=== PATIENT | male | born 1935 | race Caucasian/White ===

== ENCOUNTER 2017-08-14 21:19 | Inpatient (IN) | payer MEDICARE ==
[2017-08-14 21:54] LABS: BASOPHILS % (AUTO) 0.4 %; EOSINOPHILS # (AUTO) 0.2 10^3/uL (0.0-0.7); EOSINOPHILS % (AUTO) 1.8 %; HGB - HEMOGLOBIN 13.4 g/dL (14.0-18.0); LYMPHOCYTES # (AUTO) 2.2 10^3/uL (1.5-3.5); LYMPHOCYTES % (AUTO) 25.2 %; MEAN CORPUSCULAR HEMOGLOBIN 31.1 pg (27.0-31.0); MEAN CORPUSCULAR HGB CONC 34.7 g/dL (32.0-36.0); MEAN CORPUSCULAR VOLUME 89.5 fL (80.0-94.0); MEAN PLATELET VOLUME 8.3 fL (7.4-11.4); MONOCYTES # (AUTO) 0.7 10^3/uL (0.0-1.0); NEUTROPHILS # (AUTO) 5.7 10^3/uL (1.5-6.6); NEUTROPHILS % (AUTO) 64.6 %; PLT - PLATELET COUNT 216 10^3/uL (130-450); RED CELL DISTRIBUTION WIDTH 15.3 % (12.0-15.0); WHITE BLOOD COUNT 8.8 x10^3/uL (4.8-10.8)
[2017-08-14] MEDS ORDERED: SODIUM CHLORIDE 0.9% 1,000 ML IV ONE (21:57)
[2017-08-14 22:06] LABS: ALBUMIN 4.5 g/dL (3.2-5.5); ALBUMIN/GLOBULIN RATIO 1.5 (1.0-2.2); BILIRUBIN,TOTAL 1.4 mg/dL (0.2-1.0); CALCIUM 9.4 mg/dL (8.5-10.3); TOTAL PROTEIN 7.5 g/dL (6.7-8.2)
[2017-08-14] MEDS ORDERED: IOPAMIDOL-300 100 ML VIAL ONE (22:13)
[2017-08-14] MEDS ORDERED: diltiaZEM INJ 5 MG/ML VIAL IVP STA (22:32)
[2017-08-14] MEDS ORDERED: IOPAMIDOL-300 100 ML VIAL IVP ONE (23:35)
[2017-08-14] MEDS ORDERED: MORPHINE 2 MG/ML CARPUJECT IVP STA (23:48)
--- NOTE | 2017-08-14 23:48 | CT Preliminary Report ---
Exam: CT ABDOMEN/PELVIS W/ IMPRESSION: 1. Perforated ulcer in the region of the gastroduodenal junction. Mild pneumoperitoneum and free flui d. No abscess seen. 2. Extensive colonic diverticulosis. 3. Mildly enlarged prostate. 4. Mildly enlarged spleen. 5. Mild cardiomegaly. RADIA The above findings were discussed with Joshua by Dr. Thierno Wagner at 23:46 hrs on 08/14/17. SITE ID: [id number]
--- NOTE | 2017-08-14 23:48 | ED Physician Documentation ---
PD HPI ABD PAIN - Stated complaint Stated Complaint: RT ABD PX - Chief complaint Chief Complaint: Abd Pain - History obtained from History obtained from: Patient - History of Present Illness Timing - onset: Today Timing - details: Gradual onset, Still present Quality: Cramping, Aching Location: RUQ, RLQ Associated symptoms: No: Fever, Nausea, Vomiting, Diarrhea, Constipation Similar symptoms before: Has not had sx before Recently seen: Not recently seen - Additional information Additional information: Patient is a 82 year old male with a history of A fib, not on medication who is presenting to the emergency department for abdominal pain. patient states that this evening when he was getting ready for bed he developed sharp right sided pain. Patient denies any nausea, vomiting or diarrhea. Review of Systems Constitutional: denies: Fever, Chills Eyes: denies: Decreased vision Ears: denies: Ear pain, Drainage/discharge Nose: denies: Congestion Throat: reports: Reviewed and negative Cardiac: denies: Chest pain / pressure, Palpitations Respiratory: denies: Cough, Wheezing GI: reports: Abdominal Pain. denies: Nausea, Vomiting : denies: Dysuria, Hematuria Skin: denies: Rash, Lesions Neurologic: denies: Generalized weakness, Focal weakness Immunocompromised: denies: Immunocompromised PD PAST MEDICAL HISTORY - Past Medical History Past Medical History: Yes Cardiovascular: Atrial fibrillation, Arrhythmia Respiratory: Other Endocrine/Autoimmune: None GI: None : Frequency HEENT: None Psych: None Musculoskeletal: None Derm: None - Past Surgical History HEENT: Cataracts - Present Medications Home Medications: Ambulatory Orders Medication Instructions Recorded Confirmed No Known Home Medications [No 10/06/14 10/06/14 Known Home Medications] - Allergies Allergies/Adverse Reactions: Allergies Allergy/AdvReac Type Severity Reaction Status Date / Time No Known Drug Allergies Allergy Verified 08/14/17 21:26 - Social History Does the pt smoke?: No Smoking Status: Never smoker Does the pt drink ETOH?: Yes Substance Use and Type: Marijuana - Immunizations Immunizations are current?: Yes - POLST Patient has POLST: No Results - Vitals Vitals: Vital Signs - 24 hr 08/14/17 08/14/17 08/14/17 21:20 22:48 22:58 Temperature 35.9 C L Heart Rate 109 H 148 H 111 H Respiratory 20 16 15 Rate Blood Pressure 148/93 H 145/101 H 117/55 L O2 Saturation 96 97 97 08/14/17 08/14/17 08/14/17 23:04 23:09 23:14 Temperature Heart Rate 108 H 112 H 108 H Respiratory 12 17 18 Rate Blood Pressure 104/60 111/68 109/68 O2 Saturation 97 08/14/17 08/15/17 08/15/17 23:38 00:20 00:27 Temperature Heart Rate 116 H 133 H 91 Respiratory 19 17 24 Rate Blood Pressure 123/78 134/114 H 103/43 L O2 Saturation 95 94 98 08/15/17 08/15/17 08/15/17 00:32 00:48 01:01 Temperature 37.2 C Heart Rate 104 H 99 112 H Respiratory 17 23 17 Rate Blood Pressure 116/55 L 113/78 116/83 H O2 Saturation 95 98 100 Oxygen O2 Source Room air - EKG (time done) 2153 Rate: Rate (enter#) (128) Rhythm: Atrial fibrillation [place]: Normal Intervals: Normal [place] QRS: Normal Ischemia: Normal ST segments Compare to prior EKG: Old EKG unavailable - Labs Labs: Laboratory Tests 08/14/17 08/14/17 08/14/17 21:45 21:45 22:11 WBC 8.8 RBC 4.30 L Hgb 13.4 L Hct 38.5 L MCV 89.5 MCH 31.1 H MCHC 34.7 RDW 15.3 H Plt Count 216 MPV 8.3 Neut # 5.7 Lymph # 2.2 [place] # 0.7 Eos # 0.2 Baso # 0.0 Absolute Nucleated RBC 0.01 Nucleated RBC % 0.1 Sodium 136 Potassium 4.2 Chloride 99 L Carbon Dioxide 26 Anion Gap 11.0 BUN 22 H Creatinine 1.0 Estimated GFR (MDRD) 71 L Glucose 152 H Lactic Acid Calcium 9.4 Total Bilirubin 1.4 H AST 20 ALT 19 Alkaline Phosphatase 66 Troponin I 0.05 Total Protein 7.5 Albumin 4.5 Globulin 3.0 Albumin/Globulin Ratio 1.5 Lipase 21 L 08/14/17 22:11 WBC RBC Hgb Hct MCV MCH MCHC RDW Plt Count MPV Neut # Lymph # [place] # Eos # Baso # Absolute Nucleated RBC Nucleated RBC % Sodium Potassium Chloride Carbon Dioxide Anion Gap BUN Creatinine Estimated GFR (MDRD) Glucose Lactic Acid 1.3 Calcium Total Bilirubin AST ALT Alkaline Phosphatase Troponin I Total Protein Albumin Globulin Albumin/Globulin Ratio Lipase - Rads (name of study) ct abdomen and pelvis Radiology: Final report received, Discussed with rads, See rad report ( perforated ulcer) PD MEDICAL DECISION MAKING - ED course Complexity details: reviewed old records, reviewed results, re-evaluated patient , considered differential, d/w patient, d/w lean process deployment consultant ED course: Patient was seen and examined at bedside. IV access was gained and labs were drawn. Patient was started on IV fluids. Patient was placed on a monitor and found to be in afib. ekg was performed and confirmed a fib. Cardizem 20mg was ordered. Imaging was ordered and patient originally refused. Patient eventually agreed to imaging and radiologist called. patient was found to have a perforated ulcer. Surgeon (dr. crain) was contacted and the case was discussed with her. She stated she would take the patient to the OR. Patient was treated with morpine for pain and additional dose of cardizem. Patient was admitted well appearing and in no acute distress. Departure - Departure Disposition: 66 [facility] DC/Xfer Clinical Impression: Perforated ulcer of intestine Condition: Stable
[2017-08-15] MEDS ORDERED: diltiaZEM INJ 5 MG/ML VIAL IVP STA (00:01)
--- NOTE | 2017-08-15 00:01 | CT Report ---
EXAM: CT ABDOMEN AND PELVIS EXAM DATE: 08/14/2017 11:38 PM. CLINICAL HISTORY: Right-sided abdominal pain. COMPARISONS: None. TECHNIQUE: Routine helical CT imaging was performed through the abdomen and pelvis. IV contrast: 100 mL Isovue 300. Enteric contrast: No . Reconstructions: Coronal and sagittal. In accordance with CT protocol optimization, one or more of the following dose reduction techniques w ere utilized for this exam: automated exposure control, adjustment of mA and/or KV based on patient s ize, or use of iterative reconstructive technique. FINDINGS: Lung Bases: Mild cardiomegaly. Liver: Unremarkable. No suspicious masses. Gallbladder/Bile Ducts: Unremarkable. Spleen: Mildly enlarged. Pancreas: Unremarkable. Adrenal Glands: Unremarkable. Kidneys: Ptotic malrotated left kidney. Small left renal cyst. No suspicious masses or hydronephrosis . Peritoneal Cavity/Bowel: Mild pneumoperitoneum and free fluid appears to be secondary to a perforated ulcer in the region of the gastroduodenal junction, best seen on axial images 38 through 40. Extensive colonic diverticulosis. No abscess. Pelvic Organs: Mildly enlarged prostate. The bladder appears within normal limits. Vasculature: No aneurysms or other significant abnormality. Bones: No significant abnormality. Other: None. IMPRESSION: 1. Perforated ulcer in the region of the gastroduodenal junction. Mild pneumoperitoneum and free flui d. No abscess seen. 2. Extensive colonic diverticulosis. 3. Mildly enlarged prostate. 4. Mildly enlarged spleen. 5. Mild cardiomegaly. RADIA The above findings were discussed with Joshua by Dr. Thierno Wagner at 23:46 hrs on 08/14/17. Referring Provider Line: [phone] SITE ID: [id number]
[2017-08-15] MEDS ORDERED: PIPERACILLIN/TAZOBACTAM 3.375 GM in SODIUM CHLORIDE 0.9% MINIBAG 100 ML IV STA (01:04)
[2017-08-15] MEDS ORDERED: MORPHINE 2 MG/ML CARPUJECT IVP PRN (01:09)
--- NOTE | 2017-08-15 01:19 | HISTORY & PHYSICAL EXAMINATION ---
Chief Complaint - Chief Complaint Chief Complaint: abdominal pain Abdominal Pain HPI - Admitted From Admitted from: ED - History of Present Illness HPI Comment/Other: This is an 82-year-old gentleman who presented to the emergency department this evening complaining of epigastric and right-sided abdominal pain.He states that he was feeling like his normal self until around 8 PM this evening when he started developing abdominal pain. The pain became worse and he eventually presented to the emergency department. Upon evaluation in the emergency department he was noted to be tachycardic and in atrial fibrillation. His heart rate was up to 170 and diltiazem was administered with slowing of his heart rate down to 100-110, however the patient remained in A. fib. Additionally the patient underwent lab workup and a CT scan of the abdomen. His white blood cell count was noted to be normal as well as his lactic acid. His CT scan demonstrated free intraperitoneal air with associated free fluid in the epigastric region concerning for a perforated ulcer in the gastroduodenal region. He is also noted to have diverticulosis without any evidence of inflammation. Surgical consultation was obtained. Upon my evaluation of the patient he has resting in bed in mild to moderate distress. He currently states his pain is about a 6 out of 10. He denies any history of peptic ulcer disease or GERD. He does not take any medications for reflux. He does state that he has had a toothache for the past several days and has been taking ibuprofen. His bowel habits have been normal and he has denied any constipation or diarrhea. The patient states that he was diagnosed with atrial fibrillation approximately 5 or 6 years ago but has not taking any medications for the atrial fibrillation. He is not on any anticoagulation. He denies any history of heart attacks or strokes. PMH/PSH - Past Medical History Cardiovascular: positive: Atrial fibrillation, Arrhythmia Respiratory: positive: Other Endocrine/Autoimmune: positive: None GI: positive: None : positive: Frequency HEENT: positive: None Psych: positive: None Musculoskeletal: positive: None Derm: positive: None MRSA Hx?: No - Past Surgical History HEENT: positive: Cataracts Other past surgical history: None Social & Family Hx - Social History Does the pt smoke?: No Smoking Status: Never smoker Does the pt drink ETOH?: Yes Substance Use and Type: Marijuana - POLST Patient has POLST: No Meds/Allgy - Home Medications Home Medications: Ambulatory Orders Medication Instructions Recorded Confirmed No Known Home Medications [No 04/01/15 04/01/15 Known Home Medications] - Allergies Allergies/Adverse Reactions: Allergies Allergy/AdvReac Type Severity Reaction Status Date / Time No Known Drug Allergies Allergy Verified 08/14/17 21:26 Review of Systems - Constitutional Constitutional: denies: Fever - Cardiovascular Cariovascular: denies: Chest pain - Respiratory Respiratory: denies: SOB at rest - Gastrointestinal Gastrointestinal: reports: Abdominal pain Exam - Vital Signs Reviewed Vital Signs: Yes Vital Signs: Vital Signs x48h Temp Pulse Resp BP Pulse Ox 08/15/17 01:01 112 H 17 116/83 H 100 08/15/17 00:48 37.2 C 99 23 113/78 98 08/15/17 00:32 104 H 17 116/55 L 95 08/15/17 00:27 91 24 103/43 L 98 08/15/17 00:20 133 H 17 134/114 H 94 08/14/17 23:38 116 H 19 123/78 95 08/14/17 23:14 108 H 18 109/68 08/14/17 23:09 112 H 17 111/68 08/14/17 23:04 108 H 12 104/60 97 08/14/17 22:58 111 H 15 117/55 L 97 08/14/17 22:48 148 H 16 145/101 H 97 08/14/17 21:20 35.9 C L 109 H 20 148/93 H 96 - Physical Exam General Appearance: positive: Mild distress Respiratory: positive: Breath sounds nml Cardiovascular: positive: Irregularly irregular Abdomen: positive: Other (Abdomen is distended with pain to light palpation specifically in the epigastric and right upper quadrant regions. He does have rebound tenderness and peritoneal findings.) Extremities: positive: No pedal edema Neurologic/Psychiatric: positive: Oriented x3 Results - Lab Results Fish Bones: 08/14/17 21:45 08/14/17 21:45 Other Lab Results: Lab Results x24hrs 08/14/17 08/14/17 08/14/17 Range/Units 22:11 22:11 21:45 WBC (4.8-10.8) x10^3/uL RBC (4.70-6.10) 10^6/uL Hgb (14.0-18.0) g/dL Hct (42.0-52.0) % MCV (80.0-94.0) fL MCH (27.0-31.0) pg MCHC (32.0-36.0) g/dL RDW (12.0-15.0) % Plt Count (130-450) 10^3/uL MPV (7.4-11.4) fL Neut # (1.5-6.6) 10^3/uL Lymph # (1.5-3.5) 10^3/uL [place] # (0.0-1.0) 10^3/uL Eos # (0.0-0.7) 10^3/uL Baso # (0.0-0.1) 10^3/uL Absolute Nucleated RBC x10^3/uL Nucleated RBC % /100WBC Sodium 136 (135-145) mmol/L Potassium 4.2 (3.5-5.0) mmol/L Chloride 99 L (101-111) mmol/L Carbon Dioxide 26 (21-32) mmol/L Anion Gap 11.0 (6-13) BUN 22 H (6-20) mg/dL Creatinine 1.0 (0.6-1.2) mg/dL Estimated GFR (MDRD) 71 L (>89) Glucose 152 H (70-100) mg/dL Lactic Acid 1.3 (0.5-2.2) mmol/L Calcium 9.4 (8.5-10.3) mg/dL Total Bilirubin 1.4 H (0.2-1.0) mg/dL AST 20 (10-42) IU/L ALT 19 (10-60) IU/L Alkaline Phosphatase 66 (42-121) IU/L Troponin I 0.05 (<0.49) ng/mL Total Protein 7.5 (6.7-8.2) g/dL Albumin 4.5 (3.2-5.5) g/dL Globulin 3.0 (2.1-4.2) g/dL Albumin/Globulin Ratio 1.5 (1.0-2.2) Lipase 21 L (22-51) U/L 08/14/17 Range/Units 21:45 WBC 8.8 (4.8-10.8) x10^3/uL RBC 4.30 L (4.70-6.10) 10^6/uL Hgb 13.4 L (14.0-18.0) g/dL Hct 38.5 L (42.0-52.0) % MCV 89.5 (80.0-94.0) fL MCH 31.1 H (27.0-31.0) pg MCHC 34.7 (32.0-36.0) g/dL RDW 15.3 H (12.0-15.0) % Plt Count 216 (130-450) 10^3/uL MPV 8.3 (7.4-11.4) fL Neut # 5.7 (1.5-6.6) 10^3/uL Lymph # 2.2 (1.5-3.5) 10^3/uL [place] # 0.7 (0.0-1.0) 10^3/uL Eos # 0.2 (0.0-0.7) 10^3/uL Baso # 0.0 (0.0-0.1) 10^3/uL Absolute Nucleated RBC 0.01 x10^3/uL Nucleated RBC % 0.1 /100WBC Sodium (135-145) mmol/L Potassium (3.5-5.0) mmol/L Chloride (101-111) mmol/L Carbon Dioxide (21-32) mmol/L Anion Gap (6-13) BUN (6-20) mg/dL Creatinine (0.6-1.2) mg/dL Estimated GFR (MDRD) (>89) Glucose (70-100) mg/dL Lactic Acid (0.5-2.2) mmol/L Calcium (8.5-10.3) mg/dL Total Bilirubin (0.2-1.0) mg/dL AST (10-42) IU/L ALT (10-60) IU/L Alkaline Phosphatase (42-121) IU/L Troponin I (<0.49) ng/mL Total Protein (6.7-8.2) g/dL Albumin (3.2-5.5) g/dL Globulin (2.1-4.2) g/dL Albumin/Globulin Ratio (1.0-2.2) Lipase (22-51) U/L ARRA - Anticipated LOS Anticipated Stay Length: 2 or more midnights - AMI - Statin at Admit Aspirin Prescribed on Admit: No Impression/Plan - Problem List Problem List: Perforated viscus The most likely etiology of the patient's perforated viscus is a perforated gastric or duodenal ulceration. Due to the patient's peritoneal findings I am recommending operative exploration. The procedure was explained the patient in detail including potential risks involved including but not limited to bleeding , infection, stroke, heart attack, end organ failure and . I did indicate that this is considered to be a high risk procedure. I did indicate that occasionally nonoperative management can be undertaken, however, due to his peritoneal findings I do not recommend this approach. I indicated that I will initially perform an exploratory laparoscopy with a possible laparotomy and repair of the perforation. I also indicated that postoperatively he will most likely have an NG tube, Herrera catheter and abdominal drain in place. I also indicated that we will be in the hospital for at least 2-5 days postoperatively , or longer if complications arise. He displays understanding of all of the above. He has spoken to both of his sons who are aware that he will be going to surgery but who are not currently present at the hospital. Atrial fibrillation The patient's heart rate will be managed as per anesthesia perioperatively.Due to the emergent nature of his diagnosis no further intervention will be undertaken prior to surgery.
[2017-08-15] MEDS ORDERED: SODIUM CHLORIDE 0.9% 400 ML IV ONE (01:52)
[2017-08-15] MEDS ORDERED: ONDANSETRON 4 MG/2 ML VIAL IVP ONE (02:00)
[2017-08-15] MEDS ORDERED: MIDAZOLAM 2 MG/2 ML VIAL IVP ONE (02:00)
[2017-08-15] MEDS ORDERED: ACETAMINOPHEN 1,000 MG/100 ML 100 ML IV ONE (02:00)
[2017-08-15] MEDS ORDERED: GLYCOPYRROLATE 1 MG/5 ML VIAL IVP ONE (02:00)
[2017-08-15] MEDS ORDERED: ROCURONIUM 50 MG/5 ML VIAL IVP ONE (02:00)
[2017-08-15] MEDS ORDERED: PROPOFOL 200 MG/20 ML VIAL IVP ONE (02:00)
[2017-08-15] MEDS ORDERED: LIDOCAINE-MPF 2% 5 ML VIAL IM ONE (02:00)
[2017-08-15] MEDS ORDERED: LACTATED RINGERS 1,000 ML IV SCH (02:00)
[2017-08-15] MEDS ORDERED: fentaNYL 100 MCG/2 ML VIAL IVP ONE (02:00)
[2017-08-15] MEDS ORDERED: METOPROLOL 5 MG/5 ML VIAL IVP ONE (02:00)
[2017-08-15] MEDS ORDERED: NEOSTIGMINE 1 MG/1 ML 10 ML MDV IVP ONE (02:00)
[2017-08-15] MEDS ORDERED: SUCCINYLCHOLINE 200 MG/10 ML VIAL IVP ONE (02:00)
[2017-08-15] MEDS ORDERED: BUPIVACAINE 0.25%-EPI 1:200000 PF 10 ML VIAL SUBQ ONE ×2 (02:19)
[2017-08-15] MEDS ORDERED: LACTATED RINGERS 1,000 ML IV ONE (02:35)
[2017-08-15] MEDS ORDERED: METOCLOPRAMIDE 10 MG/2 ML VIAL IVP PRN (03:56)
[2017-08-15] MEDS ORDERED: HYDROmorphone 1 MG/ML SYRINGE ONE (04:40)
[2017-08-15] MEDS ORDERED: KETOROLAC 30 MG/ML VIAL ONE (05:08)
[2017-08-15] MEDS: ACETAMINOPHEN 1,000 MG/100 ML 100 ML IV SCH ×3 (06:01→17:51)
[2017-08-15] MEDS: ENOXAPARIN 40 MG/0.4 ML SYRINGE SUBQ SCH (06:02)
[2017-08-15 06:13] LABS: BASOPHILS % (AUTO) 0.2 %; EOSINOPHILS % (AUTO) 0.1 %; LYMPHOCYTES # (AUTO) 0.4 10^3/uL (1.5-3.5); LYMPHOCYTES % (AUTO) 2.5 %; MEAN CORPUSCULAR HGB CONC 34.4 g/dL (32.0-36.0); MEAN CORPUSCULAR VOLUME 90.1 fL (80.0-94.0); MEAN PLATELET VOLUME 8.7 fL (7.4-11.4); MONOCYTES % (AUTO) 5.6 %; NEUTROPHILS # (AUTO) 16.2 10^3/uL (1.5-6.6); NEUTROPHILS % (AUTO) 91.6 %; PLT - PLATELET COUNT 208 10^3/uL (130-450); RED BLOOD COUNT 3.88 10^6/uL (4.70-6.10); WHITE BLOOD COUNT 17.7 x10^3/uL (4.8-10.8)
[2017-08-15 06:21] LABS: CALCIUM 7.8 mg/dL (8.5-10.3)
[2017-08-15] MEDS: PIPERACILLIN/TAZOBACTAM 3.375 GM in SODIUM CHLORIDE 0.9% MINIBAG 100 ML IV SCH ×3 (06:40→18:25)
[2017-08-15] MEDS: PANTOPRAZOLE 40 MG VIAL IVP SCH ×2 (06:44→16:09)
[2017-08-15] MEDS: SODIUM CHLORIDE FLUSH 0.9% 10 ML SYRINGE IVP SCH ×3 (06:48→21:22)
--- NOTE | 2017-08-15 08:01 | POST OP PROGRESS NOTE ---
Subjective - General Admit Date: 08/15/17 Procedure Date: 08/15/17 Post Op Days: 0 Procedure Performed: Laparoscopic exploration and kely patch repair - Review of Systems Wound/Incisions: positive: Dressing dry and intact Drain Type: SELMA - Other Other Information/Narrative: Procedure: Laparoscopic exploration and Kely patch repair of perforated duodenal ulcer Surgeon: Dr. Sibley Anesthesiologist: Maryann Mathis Preoperative diagnosis: Perforated viscus postoperative diagnosis: Perforated duodenal ulceration Indication for procedure: This is an 82-year-old gentleman who presented to the emergency department last night around 11 PM for progressive epigastric and right-sided abdominal pain. He states that the pain began around [address] scan findings are suggestive of a perforated duodenal ulceration with free intraperitoneal air. The patient was noted to have peritoneal signs. For both reasons he has been taken to the operating room for laparoscopic exploration, possible laparotomy and repair of perforated viscus. Findings: After obtaining informed consent from the patient he was brought into the operating room and positioned on the operating table in the supine position taking noted pressure points.The patient was intubated by anesthesia. An NG tube and Herrera catheter were inserted. The patient had received 3.375 mg of Zosyn within the prior hour. He was then prepped and draped in the usual sterile fashion. SCD boots were applied. A timeout was then taken according to protocol. A 1 cm supraumbilical incision was created and deepened down to the umbilical stalk which was grasped and elevated. The Veress needle was inserted at this location and the abdominal cavity insufflated. A 5 mm incision was created and the supraumbilical region to the left of the midline and using the Optiview trocar the abdominal cavity was entered. The varies needle was removed and replaced with a 12 mm port. An additional 5 mm port was placed in the epigastric region to the left of the umbilicus. The patient was then positioned in reverse Trendelenburg and the abdominal cavity inspected. Bilious fluid was noted in the hepatic fossa. This was suctioned with the suction assistant director of residence life. Inflammation was noted at the first portion of the duodenum. The omentum was peeled back and the liver retracted exposing a less than 5 mm defect in the anterior duodenal wall at the first portion of the duodenum. Gastric contents were seen leaking from this defect. An additional 5 mm port was inserted on the right lateral abdominal wall in order to retract the gallbladder and liver out of the field to perform a Kely patch repair. A tongue of omentum was then brought for repair. 3-0 Vicryl sutures were then utilized to suture on the anterior duodenal wall on either side of the ulceration and the omental flap was into take place. 2 interrupted 3-0 Vicryl sutures were utilized to perform the repair.. The omentum was also tacked to the pylorus with a single interrupted 3-0 Vicryl sutureto ensure no slippage. The abdominal cavity was then inspected for additional gastric contacts in all were suctioned out of the abdominal cavity. A 10 flat SELMA drain was then inserted into the umbilical port and brought out through the right lateral abdominal port. This was positioned below the liver and gallbladder sitting just above the Kely patch repair. He was tied in place with a 3-0 nylon. Hemostasis was noted to be achieved. The abdominal cavity was allowed to desufflate and all ports were removed. The umbilical port site was then closed with a [id number] 0 Vicryl suture. The skin incisions were closed with 4- 0 Monocryl. Steri-Strips and sterile dressings were applied. The patient was subsequently taken extubated to the recovery room in stable condition. Estimated blood loss 10 cc crystaloid: 800 cc normal saline urine output 175 cc complications none
[2017-08-15 09:20] LABS: BILIRUBIN,URINE NEGATIVE (NEGATIVE); GLUCOSE, URINE (UA) NEGATIVE (NEGATIVE); KETONES,URINE (UA) 15 mg/dL (NEGATIVE); LEUKOCYTE ESTERASE, URINE NEGATIVE (NEGATIVE); NITRITE,URINE NEGATIVE (NEGATIVE); OCCULT BLOOD,URINE MODERATE (NEGATIVE); PROTEIN,URINE NEGATIVE (NEGATIVE); UROBILINOGEN,URINE 1 (NORMAL) E.U./dL (NORMAL)
[2017-08-15 09:23] LABS: CLARITY,URINE CLEAR (CLEAR)
[2017-08-15 09:34] LABS: BACTERIA,URINE Rare /HPF (None Seen); SQUAMOUS EPITHELIAL CELL,UR NONE SEEN (<= Few)
[2017-08-15] MEDS: SODIUM CHLORIDE 0.9% 1,000 ML IV SCH ×2 (10:12→21:26)
[2017-08-15] MEDS: METOPROLOL 5 MG/5 ML VIAL IVP SCH ×2 (11:37→17:51)
--- NOTE | 2017-08-15 12:14 | OPERATIVE REPORT ---
Operative Report - General Admit Date: 08/15/17 - Other Other Information/Narrative: see procedure report
[2017-08-15] MEDS: PHENOL THROAT SPRAY 177 ML MM PRN (16:46)
[2017-08-16] MEDS: METOPROLOL 5 MG/5 ML VIAL IVP SCH ×4 (00:37→19:11)
[2017-08-16] MEDS: ACETAMINOPHEN 1,000 MG/100 ML 100 ML IV SCH ×4 (00:43→18:43)
[2017-08-16] MEDS: PIPERACILLIN/TAZOBACTAM 3.375 GM in SODIUM CHLORIDE 0.9% MINIBAG 100 ML IV SCH ×4 (01:37→19:40)
[2017-08-16] MEDS ORDERED: ENOXAPARIN 40 MG/0.4 ML SYRINGE SUBQ SCH (04:00)
[2017-08-16] MEDS: PHENOL THROAT SPRAY 177 ML MM PRN (05:50)
[2017-08-16 05:58] LABS: BASOPHILS % (AUTO) 0.3 %; EOSINOPHILS # (AUTO) 0.1 10^3/uL (0.0-0.7); HGB - HEMOGLOBIN 11.1 g/dL (14.0-18.0); LYMPHOCYTES # (AUTO) 1.1 10^3/uL (1.5-3.5); LYMPHOCYTES % (AUTO) 11.2 %; MEAN CORPUSCULAR HEMOGLOBIN 32.1 pg (27.0-31.0); MEAN CORPUSCULAR HGB CONC 35.2 g/dL (32.0-36.0); MEAN PLATELET VOLUME 8.6 fL (7.4-11.4); MONOCYTES # (AUTO) 0.7 10^3/uL (0.0-1.0); MONOCYTES % (AUTO) 7.1 %; NEUTROPHILS # (AUTO) 7.7 10^3/uL (1.5-6.6); NEUTROPHILS % (AUTO) 80.4 %; PLT - PLATELET COUNT 193 10^3/uL (130-450); RED BLOOD COUNT 3.47 10^6/uL (4.70-6.10); RED CELL DISTRIBUTION WIDTH 15.3 % (12.0-15.0); WHITE BLOOD COUNT 9.6 x10^3/uL (4.8-10.8)
[2017-08-16 06:05] LABS: CALCIUM 7.5 mg/dL (8.5-10.3); CREATININE 1.1 mg/dL (0.6-1.2)
[2017-08-16] MEDS: SODIUM CHLORIDE FLUSH 0.9% 10 ML SYRINGE IVP SCH ×3 (06:05→19:47)
[2017-08-16] MEDS: SODIUM CHLORIDE FLUSH 0.9% 10 ML SYRINGE IVP PRN (06:06)
[2017-08-16] MEDS: PANTOPRAZOLE 40 MG VIAL IVP SCH ×2 (06:06→18:43)
[2017-08-16] MEDS: ENOXAPARIN 40 MG/0.4 ML SYRINGE SUBQ SCH (08:35)
[2017-08-16] MEDS ORDERED: ONDANSETRON 4 MG/2 ML VIAL IVP PRN (08:40)
[2017-08-16] MEDS: D5.45NS W/20 MEQ KCL 1,000 ML IV SCH ×2 (08:52→21:17)
--- NOTE | 2017-08-16 09:24 | PROVIDER PROGRESS NOTE ---
Subjective - General Admit Date: 08/15/17 Procedure Date: 08/15/17 Post Op Days: 1 Procedure Performed: Laparoscopic exploration and kely patch repair - Review of Systems Wound/Incisions: positive: Dressing dry and intact Drain Type: SELMA Drain Output Description: 100 serous General: positive: Fatigue, Other (didn't sleep well last pm) Pulmonary: negative: Shortness of breath Cardiovascular: positive: No symptoms. negative: Chest pain, Palpitations Genitourinary: positive: Other (minimalo flatus. No emesis, no nausea, no bloating) Psychiatric: positive: No symptoms. negative: Confusion Objective - Patient Data Reviewed Vital Signs: Yes Vital Signs: Vital Signs x48h Temp Pulse Resp BP BP Pulse Ox 08/16/17 08:15 37.0 C 114 H 18 90/69 93 08/16/17 06:45 111 H 100/49 L 08/16/17 06:30 109 H 92/54 L 08/16/17 06:20 131 H 98/57 L 08/16/17 06:15 103 H 93/56 L 08/16/17 06:10 103 H 102/77 08/16/17 06:00 94/58 L 08/16/17 05:50 37.6 C H 124 H 16 94/58 L 96 Weight: Weight 08/14/17 08/15/17 08/16/17 23:59 23:59 23:59 Weight (kg) 83.5 kg Intake & Output: Intake and Output Totals x24h 08/14/17 08/15/17 08/16/17 23:59 23:59 23:59 Intake Total 4567.122 3101.000 Output Total 835 655 Balance 943.333 575.000 - Lab Results Lab Results: 08/16/17 05:20 08/16/17 05:20 Other Lab Results: Lab Results x24hrs 08/16/17 08/16/17 08/15/17 Range/Units 05:20 05:20 05:30 WBC 9.6 (4.8-10.8) x10^3/uL RBC 3.47 L (4.70-6.10) 10^6/uL Hgb 11.1 L (14.0-18.0) g/dL Hct 31.6 L (42.0-52.0) % MCV 91.0 (80.0-94.0) fL MCH 32.1 H (27.0-31.0) pg MCHC 35.2 (32.0-36.0) g/dL RDW 15.3 H (12.0-15.0) % Plt Count 193 (130-450) 10^3/uL MPV 8.6 (7.4-11.4) fL Neut # 7.7 H (1.5-6.6) 10^3/uL Lymph # 1.1 L (1.5-3.5) 10^3/uL [place]ides # 0.7 (0.0-1.0) 10^3/uL Eos # 0.1 (0.0-0.7) 10^3/uL Baso # 0.0 (0.0-0.1) 10^3/uL Absolute Nucleated RBC 0.00 x10^3/uL Nucleated RBC % 0.0 /100WBC Sodium 138 (135-145) mmol/L Potassium 3.6 (3.5-5.0) mmol/L Chloride 108 (101-111) mmol/L Carbon Dioxide 21 (21-32) mmol/L Anion Gap 9.0 (6-13) BUN 15 (6-20) mg/dL Creatinine 1.1 (0.6-1.2) mg/dL Estimated GFR (MDRD) 64 L (>89) Glucose 109 H (70-100) mg/dL Calcium 7.5 L (8.5-10.3) mg/dL Urine Color YELLOW Urine Clarity CLEAR (CLEAR) Urine pH 6.0 (5.0-7.5) PH Ur Specific Annabella 1.020 (1.002-1.030) Urine Protein NEGATIVE (NEGATIVE) mg/dL Urine Glucose (UA) NEGATIVE (NEGATIVE) mg/dL Urine Ketones 15 H (NEGATIVE) mg/dL Urine Occult Blood MODERATE H (NEGATIVE) Urine Nitrite NEGATIVE (NEGATIVE) Urine Bilirubin NEGATIVE (NEGATIVE) Urine Urobilinogen 1 (NORMAL) (NORMAL) E.U./dL Ur Leukocyte Esterase NEGATIVE (NEGATIVE) Urine RBC 6-10 H (0-5) /HPF Urine WBC 0-3 (0-3) /HPF Ur Squamous Epith Cells NONE SEEN (<= Few) Urine Bacteria Rare (None Seen) /HPF Ur Microscopic Review INDICATED Urine Culture Comments NOT INDICATED - Current Medications Current Medications: Current Medications Generic Name Dose Route Start Last Admin Trade Name Freq PRN Reason Stop Dose Admin Enoxaparin Sodium 40 mg 08/15/17 06:00 08/16/17 08:35 Lovenox SUBQ 40 mg DAILY GAYLE Administration Piperacillin Sod/Tazobactam 100 mls @ 200 mls/hr 08/15/17 07:00 08/16/17 06: 54 Sod 3.375 gm/ Sodium Chloride IV Infused Q6H GAYLE Infusion Acetaminophen 100 mls @ 400 mls/hr 08/15/17 05:00 08/16/17 05:53 Ofirmev IV Infused Q6HR GAYLE Infusion Potassium Chloride/Dextrose/Sod Cl 1,000 mls @ 83.333 mls/hr 08/16/17 09:00 08/16/17 08:52 D5.45ns W/20 Meq Kcl IV 83.333 mls/hr .Q12H GAYLE Administration Metoprolol Tartrate 5 mg 08/15/17 12:00 08/16/17 06:00 Lopressor Inj IVP 5 mg Q6HR GAYLE Administration Pantoprazole Sodium 40 mg 08/15/17 07:00 08/16/17 06:06 Protonix IVP 40 mg BIDAC GAYLE Administration Phenol/Menthol 2 sprays 08/15/17 16:07 08/16/17 05:50 Chloraseptic MM 2 sprays Q2HR PRN Administration Throat Pain Sodium Chloride 10 ml 08/15/17 01:09 08/16/17 06:06 Normal Saline Flush 0.9% IVP 10 ml PRN PRN Administration NEEDED PER PROVIDER ORDERS Sodium Chloride 10 ml 08/15/17 06:00 08/16/17 06:05 Normal Saline Flush 0.9% IVP 10 ml Q8HR GAYLE Administration - Physical Exam Wound/Incisions: positive: Dressing dry and intact, No drainage. negative: Erythema General Appearance: positive: No acute distress Respiratory: positive: No respiratory distress, Breath sounds nml Cardiovascular: positive: Irregularly irregular Abdomen: positive: Other (soft, non-distended, no tender to light palpation. SELMA in place) Extremities: positive: No pedal edema Neurologic/Psychiatric: positive: Oriented x3 Comments/Other: pain well controlled. afebrile, normalization of WBC today. UOP adequate Impression/Plan - Problem List Problem List: s/p laparoscopic exploration with Kely patch repair of perforated DU POD 1 - DC schmid - encourage ambulation - Continue NGT to intermittent suction. Con't NPO and IV fluids. Will plan for 3 days of these measures to allow for healing, followed by a leak test prior to removing NGT. Spoke with Dr. Koenig in Radiology - this can not be performed over weekend, will have to wait until Saturday. If negative NGT will be removed and patient started on orals. - WBC normalized, patient remains afebrile. Plan to continue IV antibiotics for 5 days for intraperitoneal contamination. - SELMA to remain in place until after leak test performed and oral diet started - Con't BID IV PPI. Patient counseled that he will be discharged on oral PPI Qday, which he will need to take for the rest of his life to prevent ulcer recurrence. - Continue IV metoprolol until NGT removed and oral medications can be started. Will need to be discharged on oral rate control medication and will need to have close interval follow up with PCP to manage his uncontrolled A.fib. I also recommended that he discuss with his PCP the risks and benefits of anticoagulation therapy at his age. No surgical contraindication to start full anticoagulation. He should at the very least start Aspirin 81 mg Daily once oral diet is started. - Con't Lovenox for DVT prophylaxis until discharge - Maintenance IV fluids to continue until diet started. - IV acetaminophen and morphine for pain control. - Informed patient that Dr. Guerrero will be taking over care as I will be out of town until next Saturday. Patient will follow up with me 2 weeks after discharge.
[2017-08-17] MEDS: METOPROLOL 5 MG/5 ML VIAL IVP SCH ×5 (00:17→23:43)
[2017-08-17] MEDS: ACETAMINOPHEN 1,000 MG/100 ML 100 ML IV SCH ×5 (00:17→23:43)
[2017-08-17] MEDS: PIPERACILLIN/TAZOBACTAM 3.375 GM in SODIUM CHLORIDE 0.9% MINIBAG 100 ML IV SCH ×4 (00:44→19:03)
[2017-08-17] MEDS: SODIUM CHLORIDE FLUSH 0.9% 10 ML SYRINGE IVP SCH ×3 (05:49→21:19)
[2017-08-17 06:26] LABS: CALCIUM 7.8 mg/dL (8.5-10.3); CREATININE 0.9 mg/dL (0.6-1.2)
[2017-08-17] MEDS: PANTOPRAZOLE 40 MG VIAL IVP SCH ×2 (06:42→16:42)
[2017-08-17] MEDS: ENOXAPARIN 40 MG/0.4 ML SYRINGE SUBQ SCH (09:11)
[2017-08-17] MEDS: SODIUM CHLORIDE FLUSH 0.9% 10 ML SYRINGE IVP PRN ×2 (12:00→12:52)
--- NOTE | 2017-08-17 12:34 | PROVIDER PROGRESS NOTE ---
Subjective - General Admit Date: 08/15/17 Procedure Date: 08/15/17 Post Op Days: 2 Procedure Performed: Laparoscopic exploration and osman patch repair - Review of Systems Wound/Incisions: positive: Drainage (Serous.). negative: Erythema Drain Type: SELMA Drain Output Description: 130 serous General: positive: No symptoms (Feeling much better - states he has no pain.) Pulmonary: negative: Shortness of breath Cardiovascular: positive: No symptoms. negative: Chest pain, Palpitations Gastrointestinal: positive: Flatus (Small amount.), Other (No bowel movement.) Musculoskeletal: positive: No symptoms Skin: positive: No symptoms Psychiatric: positive: No symptoms. negative: Confusion Objective - Patient Data Reviewed Vital Signs: Yes Vital Signs: Vital Signs x48h Temp Pulse Resp BP BP Pulse Ox 08/17/17 08:03 37.2 C 120 H 18 128/76 94 08/17/17 06:13 92 130/75 08/17/17 06:07 109 H 08/17/17 06:01 123 H 109/64 08/17/17 05:59 118/82 H 08/17/17 05:49 142/85 H Weight: Weight 08/15/17 08/16/17 08/17/17 23:59 23:59 23:59 Weight (kg) 83.5 kg Intake & Output: Intake and Output Totals x24h 08/15/17 08/16/17 08/17/17 23:59 23:59 23:59 Intake Total 7768.261 2836.792 420 Output Total 835 1673 985 Balance 010.887 5337.792 -565 - Lab Results Lab Results: 08/16/17 05:20 08/17/17 05:45 Other Lab Results: Lab Results x24hrs 08/17/17 Range/Units 05:45 Sodium 138 (135-145) mmol/L Potassium 3.6 (3.5-5.0) mmol/L Chloride 106 (101-111) mmol/L Carbon Dioxide 22 (21-32) mmol/L Anion Gap 10.0 (6-13) BUN 8 (6-20) mg/dL Creatinine 0.9 (0.6-1.2) mg/dL Estimated GFR (MDRD) 81 L (>89) Glucose 149 H (70-100) mg/dL Calcium 7.8 L (8.5-10.3) mg/dL - Current Medications Current Medications: Current Medications Generic Name Dose Route Start Last Admin Trade Name Freq PRN Reason Stop Dose Admin Enoxaparin Sodium 40 mg 08/15/17 06:00 08/17/17 09:11 Lovenox SUBQ 40 mg DAILY GAYLE Administration Piperacillin Sod/Tazobactam 100 mls @ 200 mls/hr 08/15/17 07:00 08/17/17 11: 38 Sod 3.375 gm/ Sodium Chloride IV Infused Q6H GAYLE Infusion Acetaminophen 100 mls @ 400 mls/hr 08/15/17 05:00 08/17/17 11:52 Ofirmev IV 400 mls/hr Q6HR GAYLE Administration Potassium Chloride/Dextrose/Sod Cl 1,000 mls @ 83.333 mls/hr 08/16/17 09:00 08/16/17 21:17 D5.45ns W/20 Meq Kcl IV 83.3 mls/hr .Q12H GAYLE Administration Metoprolol Tartrate 5 mg 08/15/17 12:00 08/17/17 05:49 Lopressor Inj IVP 5 mg Q6HR GAYLE Administration Pantoprazole Sodium 40 mg 08/15/17 07:00 08/17/17 06:42 Protonix IVP 40 mg BIDAC GAYLE Administration Phenol/Menthol 2 sprays 08/15/17 16:07 08/16/17 05:50 Chloraseptic MM 2 sprays Q2HR PRN Administration Throat Pain Sodium Chloride 10 ml 08/15/17 01:09 08/17/17 12:00 Normal Saline Flush 0.9% IVP 10 ml PRN PRN Administration NEEDED PER PROVIDER ORDERS Sodium Chloride 10 ml 08/15/17 06:00 08/17/17 05:49 Normal Saline Flush 0.9% IVP Not Given Q8HR GAYLE - Physical Exam Wound/Incisions: positive: Healing well, Drainage (Slight serous on dressing. Dressing removed.) General Appearance: positive: No acute distress Eyes Bilateral: positive: No lid inflammation, Conjunctivae nml, No scleral icterus Neck: positive: Trachea midline Respiratory: positive: Chest non-tender, No respiratory distress, Breath sounds nml Cardiovascular: positive: Irregularly irregular (Tachy to 100's-110's.) Abdomen: positive: Nml bowel sounds (Transmitted NG sounds as well.), Tenderness (Minimal incisional.) Skin: positive: Color nml Neurologic/Psychiatric: positive: Oriented x3 Impression/Plan - Problem List Problem List: D2 s/p laparoscopic exploration with Osman patch repair of perforated duodenal ulcer ) FEN Continue NG tube decompression, NPO and IVF to allow for Osman patch to heal and await leak test on Saturday as it cannot be done this weekend. Leak test MUST be done prior to discontinuing NG tube and starting oral intake. 2) ID No indication of infection. The tachycardia is not unexpected but mildly worrisome. SELMA drain must stay in place until after the leak test. Between the NG and the SELMA they are on either side of a potential leak - controlling it. 3) Ulcer Prevention and treatment with BID PPI. Considering patient's age and co-morbidities lifelong treatment is indicated. Patient will be discharged on oral daily PPI. Discussion with patient indicated that he had taken 5-6 days of Ibuprofen for a toothache prior to admission. 4) Afib Will defer to Ignition Expert's recommendation (will call on consult - spoke with Dr. Bills and Fausto Coats) but agree with Metoprolol for control of rate now and determination of what oral medication patient should be discharged on (anticoagulation versus none). There is no surgical contraindication to anticoagulation. Daily aspirin when taking po? 5) Pain IV acetaminophen and morphine. 6) DVT prophylaxis Continue Lovenox. Ambulate as much as possible.
--- NOTE | 2017-08-17 12:43 | CONSULTATION NOTE ---
Referring Provider Name of Referring Provider:: Dr. Guerrero Consult Date: 08/17/17 ([facility]) Chief Complaint - Chief Complaint Chief Complaint: tachycardia History of Present Illness - Admitted From Admitted From:: ED - History Obtained From Records Reviewed: yes History obtained from: chart review Exam Limitations: none, patient [place] - History of Present Illness HPI Comment/Other: Damion Singer is a well-appearing 82-year old white male with a past medical history of paroxysmal atrial fibrillation, cataract surgery, and marijuana dependence. The patient presented to the ED with a chief complaint of epigastric and right-sided abdominal pain. He states that he was feeling like his normal self until around 8 PM this evening when he started developing abdominal pain. During the admission evaluation in the ED, he was noted to be tachycardic and in atrial fibrillation. His heart rate was up to 170 and diltiazem was given which improved his rates to 100-110, however the patient remained in atrial fibrillation. Lab workup and a CT scan of the abdomen was completed and revealed; a normal WBC count, normal lactic acid. An abdominal CT scan demonstrated free intraperitoneal air with associated free fluid in the epigastric region concerning for a perforated ulcer in the gastroduodenal region. He is also noted to have diverticulosis without any evidence of inflammation. Surgical consult with Dr. Sibley was made who noted the patient to have recent NSAID use for a toothache, denied constipation or diarrhea. Plans for surgery are underway and the patient was admitted inpatient. The post-operative coarse has been smooth and uneventful, but due to concerns of persistent atrial fibrillation, a hospitalist consult was made for further management or uncontrolled atrial fibrillation. The patient states that he was diagnosed with atrial fibrillation about 6 years ago but has not been taking any medications for the atrial fibrillation. He is not on any anticoagulation. He denies any history of heart attacks or strokes. He admits to a "full cardiac work up 6 years ago at [facility]". Records have been requested. History - Past Medical History Cardiovascular: reports: Hypertension, Atrial fibrillation, Arrhythmia Respiratory: reports: None Neuro: reports: None Endocrine/Autoimmune: reports: None GI: reports: None : reports: Frequency HEENT: reports: Chronic hearing loss Psych: reports: Anxiety Musculoskeletal: reports: None Derm: reports: None MRSA Hx?: No - Past Surgical History General: reports: Bowel surgery HEENT: reports: Cataracts Other past surgical history: None - Family & Social History Family History: Mother: , Father: Living arrangement: At home Living Situation: Alone - Substance History Use: Uses substance without health or social issues: NONE Abuse: Recurrent use of substance despite neg consequences: NONE Dependence: Experiences withdrawal or developed tolerances: Cannabis Dependence Issues: Anxiety Disorder Tobacco Details: Other - POLST Patient has POLST: No POLST Status: Full Code Meds/Allgy - Home Medications Home Medications: Ambulatory Orders Medication Instructions Recorded Confirmed No Known Home Medications [No 10/06/14 08/15/17 Known Home Medications] - Allergies Allergies/Adverse Reactions: Allergies Allergy/AdvReac Type Severity Reaction Status Date / Time No Known Drug Allergies Allergy Verified 08/14/17 21:26 Review of Systems - Constitutional Constitutional: denies: Fever, Chills - Eyes Eyes: reports: Corrective lenses. denies: Pain, Irritation, Spots in vision - Ears, Nose & Throat Ears, Nose & Throat: reports: Hearing loss, Hearing aids. denies: Ear pain, Bleeding gums, Dental decay - Cardiovascular Cariovascular: reports: Irregular heart rate, Decr. exercise tolerance - Respiratory Respiratory: denies: Cough, Sputum production, Wheezing, Hemoptysis - Gastrointestinal Gastrointestinal: reports: Poor appetite - Genitourinary Genitourinary: denies: Dysuria - Musculoskeletal Musculoskeletal: denies: Muscle pain, Back pain - Integumentary Integumentary: denies: Rash, Pruritis - Neurological Neurological: reports: General weakness, Pre-existing deficit. denies: Headache , Seizures - Psychiatric Psychiatric: denies: Depression - Endocrine Endocrine: denies: Polyuria, Polydypsia - Hematologic/Lymphatic Hematologic/Lymphatic: denies: Anemia, Bruising - All Other Systems All Other Systems: reports: Reviewed and negative Exam - Vital Signs Reviewed Vital Signs: Yes Vital Signs: Vital Signs x48h Temp Pulse Resp BP BP Pulse Ox 08/17/17 08:03 37.2 C 120 H 18 128/76 94 08/17/17 06:13 92 130/75 08/17/17 06:07 109 H 08/17/17 06:01 123 H 109/64 08/17/17 05:59 118/82 H 08/17/17 05:49 142/85 H - Physical Exam General Appearance: positive: No acute distress, Alert Eyes Bilateral: positive: Normal inspection, PERRL ENT: positive: ENT inspection nml, Pharynx nml, Dry mucous membranes Neck: positive: Nml inspection, Thyroid nml, No JVD, Stiff neck Respiratory: positive: Chest non-tender, No respiratory distress, Other ( diminished, bilaterally.) Cardiovascular: positive: No gallop, Irregularly irregular, Tachycardia Peripheral Pulses: positive: 2+ Abdomen: positive: No organomegaly, Tenderness, Abnml bowel sounds, Other ( rounded, SELMA drain x1 RLQ) Back: positive: Nml inspection Skin: positive: No rash, Warm, Dry Extremities: positive: Non-tender, Full ROM, Nml appearance, Pedal edema Neurologic/Psychiatric: positive: Oriented x3, CN's nml (2-12), Motor nml, Sensation nml, Depressed mood/affect Reflexes: Bicep (R): 2+, Bicep (L): 2+ Conclusion/Plan - Diagnosis Diagnosis: Atrial fibrillation - Plan Plan: Patient has a known history of atrial fibrillation for at least the past 6 years per patient during exam. Plan: Due to NPO status, patient will be continued on metoprolol IV every 6 hours scheduled, and adding IV digoxin daily. Will continue this until PO medications are tolerated. Patient requested to see me again, on second visit patient states that he is feeling very anxious as he has purposely forgotten about his a-fib diagnosis for the past 6 years. He was formally worked up at [facility], placed on medications, but soon put them all in a box to forget about it. Plan: Lorazepam IV 0.5 every 2 hours for anxiety related to tachycardia and current state of health. - Lab Results Lab results reviewed: Yes Fish Bones: 08/16/17 05:20 08/17/17 05:45 - Diagnostic Imaging Results Diagnostic Imaging Results: positive: Prelim report reviewed, Final report reviewed - EKG Results EKG Interpreted Independently: Yes EKG Comparison: Unchanged from prior EKG
[2017-08-17] MEDS: D5.45NS W/20 MEQ KCL 1,000 ML IV SCH (12:50)
[2017-08-17] MEDS: DIGOXIN 500 MCG/2 ML AMP IVP SCH (16:42)
[2017-08-17] MEDS ORDERED: LORazepam 2 MG/ML VIAL IVP PRN (17:20)
[2017-08-18] MEDS: PIPERACILLIN/TAZOBACTAM 3.375 GM in SODIUM CHLORIDE 0.9% MINIBAG 100 ML IV SCH ×4 (00:14→19:43)
[2017-08-18] MEDS: D5.45NS W/20 MEQ KCL 1,000 ML IV SCH ×3 (01:54→16:18)
[2017-08-18 05:11] LABS: CALCIUM 7.9 mg/dL (8.5-10.3); CREATININE 0.9 mg/dL (0.6-1.2)
[2017-08-18] MEDS: METOPROLOL 5 MG/5 ML VIAL IVP SCH ×4 (06:19→21:05)
[2017-08-18] MEDS: SODIUM CHLORIDE FLUSH 0.9% 10 ML SYRINGE IVP SCH ×3 (06:21→16:27)
[2017-08-18] MEDS: ACETAMINOPHEN 1,000 MG/100 ML 100 ML IV SCH ×3 (06:21→18:47)
[2017-08-18] MEDS: PANTOPRAZOLE 40 MG VIAL IVP SCH ×2 (06:47→16:27)
--- NOTE | 2017-08-18 09:27 | PROVIDER PROGRESS NOTE ---
Subjective - Prog Note Date Prog Note Date: 08/18/17 Prog Note Time: 09:27 - Subjective Pt reports feeling: No change Subjective: Damion offers no complaints and denies chest pain, shortness of breath, N/V or a new cough. Current Medications - Current Medications Current Medications: Active Medications Digoxin (Lanoxin Inj) 250 mcg IVP DAILY [facility] Last Admin: 08/18/17 09:54 Dose: 250 mcg Digoxin (Lanoxin Inj) 250 mcg IVP DAILY [facility] Digoxin (Lanoxin Inj) 250 mcg IVP DAILY [facility] Enoxaparin Sodium (Lovenox) 40 mg SUBQ DAILY [facility] Last Admin: 08/18/17 09:54 Dose: 40 mg Piperacillin Sod/Tazobactam (Sod 3.375 gm/ Sodium Chloride) 100 mls @ 200 mls/ hr IV Q6H [facility] Last Infusion: 08/18/17 15:01 Dose: Infused Acetaminophen (Ofirmev) 100 mls @ 400 mls/hr IV Q6HR [facility] Last Infusion: 08/18/17 13:56 Dose: Infused Potassium Chloride/Dextrose/Sod Cl (D5.45ns W/20 Meq Kcl) 1,000 mls @ 83.333 mls/hr IV .Q12H [facility] Last Infusion: 08/18/17 16:21 Dose: 0 mls/hr Potassium Chloride 40 meq/ (Sodium Chloride) 500 mls @ 125 mls/hr IV ONCE ONE Stop: 08/18/17 18:05 Last Admin: 08/18/17 16:20 Dose: 125 mls/hr Lorazepam (Ativan Inj (Vial)) 0.5 mg IVP Q2H PRN PRN Reason: Anxiety Last Admin: 08/17/17 17:57 Dose: 0.5 mg Metoprolol Tartrate (Lopressor Inj) 5 mg IVP Q4HR [facility] Morphine Sulfate (Morphine (Carpuject)) 2 mg IVP Q2HR PRN PRN Reason: Pain 8 to 10 Ondansetron HCl (Zofran Inj) 4 mg IVP Q6HR PRN PRN Reason: Nausea / Vomiting Pantoprazole Sodium (Protonix) 40 mg IVP BIDAC [facility] Last Admin: 08/18/17 16:27 Dose: 40 mg Phenol/Menthol (Chloraseptic) 2 sprays MM Q2HR PRN PRN Reason: Throat Pain Last Admin: 08/16/17 05:50 Dose: 2 sprays Sodium Chloride (Normal Saline Flush 0.9%) 10 ml IVP PRN PRN PRN Reason: NEEDED PER PROVIDER ORDERS Last Admin: 08/18/17 12:08 Dose: 20 ml Sodium Chloride (Normal Saline Flush 0.9%) 10 ml IVP Q8HR GAYLE Last Admin: 08/18/17 16:27 Dose: 10 ml No Known Home Medications [No Known Home Medications] 10/06/14 Objective - Vital Signs/Intake & Output Reviewed Vital Signs: Yes Vital Signs: Vital Signs x48h Temp Pulse Resp BP BP Pulse Ox 08/18/17 08:01 36.9 C 64 18 138/78 H 96 08/18/17 06:19 128/95 H 08/18/17 05:05 37.1 C 107 H 18 134/72 H 95 Intake & Output: Intake & Output 08/15/17 08/16/17 08/17/17 08/18/17 23:59 23:59 23:59 23:59 Intake Total 8480.033 4592.792 2291.49 868.51 Output Total 835 1673 2010 830 Balance 926.880 2179.792 281.49 38.51 - Objective General Appearance: positive: No acute distress, Alert, Anxious Eyes Bilateral: positive: Normal inspection ENT: positive: ENT inspection nml, Pharynx nml, Dry mucous membranes Neck: positive: Nml inspection, Thyroid nml Respiratory: positive: Chest non-tender, No respiratory distress, Breath sounds nml Cardiovascular: positive: No gallop, Irregularly irregular, Tachycardia, Systolic murmur, Decreased pulse(s) Peripheral Pulses: 2+ Radial (R), 2+ Radial (L) Abdomen: positive: Tenderness, Guarding, Abnml bowel sounds Back: positive: Nml inspection Skin: positive: No rash, Warm, Dry Extremities: positive: Non-tender, Full ROM, Nml appearance, No pedal edema, Joint swelling Neurologic/Psychiatric: positive: Oriented x3, CN's nml (2-12), Motor nml, Sensation nml, Depressed mood/affect Reflexes: Bicep (R): 3+, Bicep (L): 3+ - Lab Results Fish Bones: 08/18/17 13:53 08/18/17 04:40 Other Labs: Lab Results x24hrs 08/18/17 Range/Units 04:40 Sodium 140 (135-145) mmol/L Potassium 3.7 (3.5-5.0) mmol/L Chloride 110 (101-111) mmol/L Carbon Dioxide 22 (21-32) mmol/L Anion Gap 8.0 (6-13) BUN 5 L (6-20) mg/dL Creatinine 0.9 (0.6-1.2) mg/dL Estimated GFR (MDRD) 81 L (>89) Glucose 142 H (70-100) mg/dL Calcium 7.9 L (8.5-10.3) mg/dL - Diagnostic Imaging Diagnostic Imaging Results: positive: Final report reviewed Assessment/Plan - Problem List (1) Paroxysmal atrial fibrillation Impression: Patient has remained minimally rate controlled using Metoprolol 5mg IV every 6 hours that was increased today to 5mg IV every 4 hours. In addition today, patient received his second IV digoxin dose of 250mcg. Patient has been somewhat hypertensive, without symptoms. Spoke to Dr. Guerrero today in regards to patient remaining tachy in the 120's. Orders for additional labs to rule out an underlying cause, which was negative, no WBC elevation. EKG completed. * Adding 2 more IV doses of digoxin for today, and plans to check a blood dig level in AM before first IV dig dose. Plan: Continue to monitor labs, vital signs and make adjustments to medications as needed. Plan to start oral agents when cleared for oral intake. (2) Perforated ulcer of intestine Impression: Patient is without post-op complications, has remained afebrile, no pain to speak of when asked. Plan: Continue care as per surgery Chiara Sibley MD or Dr. Mani Guerrero MD.
[2017-08-18] MEDS: DIGOXIN 500 MCG/2 ML AMP IVP SCH ×2 (09:54→18:32)
[2017-08-18] MEDS: ENOXAPARIN 40 MG/0.4 ML SYRINGE SUBQ SCH (09:54)
[2017-08-18] MEDS: SODIUM CHLORIDE FLUSH 0.9% 10 ML SYRINGE IVP PRN ×2 (09:55→12:08)
[2017-08-18 14:00] LABS: BASOPHILS % (AUTO) 0.6 %; EOSINOPHILS # (AUTO) 0.2 10^3/uL (0.0-0.7); EOSINOPHILS % (AUTO) 3.1 %; HGB - HEMOGLOBIN 12.3 g/dL (14.0-18.0); LYMPHOCYTES # (AUTO) 0.9 10^3/uL (1.5-3.5); LYMPHOCYTES % (AUTO) 13.8 %; MEAN CORPUSCULAR HEMOGLOBIN 31.9 pg (27.0-31.0); MEAN CORPUSCULAR HGB CONC 35.6 g/dL (32.0-36.0); MEAN CORPUSCULAR VOLUME 89.6 fL (80.0-94.0); MEAN PLATELET VOLUME 7.7 fL (7.4-11.4); MONOCYTES # (AUTO) 0.5 10^3/uL (0.0-1.0); MONOCYTES % (AUTO) 8.2 %; NEUTROPHILS % (AUTO) 74.3 %; PLT - PLATELET COUNT 274 10^3/uL (130-450); RED BLOOD COUNT 3.86 10^6/uL (4.70-6.10); RED CELL DISTRIBUTION WIDTH 15.2 % (12.0-15.0); WHITE BLOOD COUNT 6.7 x10^3/uL (4.8-10.8)
[2017-08-18] MEDS ORDERED: POTASSIUM CHLORIDE INJ 40 MEQ in SODIUM CHLORIDE 0.9% 480 ML IV ONE (14:06)
[2017-08-18 14:18] LABS: CRP - C-REACTIVE PROTEIN 6.7 mg/dL (0-1.0)
--- NOTE | 2017-08-18 14:33 | PROVIDER PROGRESS NOTE ---
Subjective - General Admit Date: 08/15/17 Procedure Date: 08/15/17 Post Op Days: 3 Procedure Performed: Laparoscopic exploration and kely patch repair - Review of Systems Wound/Incisions: positive: Healing well, Drainage (Slight serous on dressing. Dressing removed.) Drain Type: SELMA Drain Output Description: 110 serous and NOT bilious General: positive: No symptoms (Feeling much better - states he has no pain.) HEENT: positive: No symptoms Pulmonary: positive: No symptoms Cardiovascular: positive: No symptoms Gastrointestinal: positive: Flatus (Passing a large amount.), Other (No bowel movement.) Genitourinary: positive: Other (minimalo flatus. No emesis, no nausea, no bloating) Musculoskeletal: positive: No symptoms Skin: positive: No symptoms Psychiatric: positive: No symptoms. negative: Confusion All Other Systems: positive: Reviewed and negative Objective - Patient Data Reviewed Vital Signs: Yes Vital Signs: Vital Signs x48h Temp Pulse Pulse Resp BP BP Pulse Ox 08/18/17 12:35 86 143/102 H 08/18/17 12:21 108 H 150/87 H 08/18/17 12:17 118 H 148/81 H 08/18/17 12:12 93 143/88 H 08/18/17 12:07 125 H 144/94 H 08/18/17 12:01 141/100 H 08/18/17 11:43 36.8 C 59 L 20 149/77 H 95 08/18/17 09:54 100 08/18/17 08:01 36.9 C 64 18 138/78 H 96 Intake & Output: Intake and Output Totals x24h 08/16/17 08/17/17 08/18/17 23:59 23:59 23:59 Intake Total 2750.792 2291.49 1938.51 Output Total 1673 2010 1685 Balance 1077.792 281.49 253.51 - Lab Results Lab Results: 08/18/17 13:53 08/18/17 04:40 Other Lab Results: Lab Results x24hrs 08/18/17 08/18/17 08/18/17 Range/Units 13:53 13:53 13:53 WBC (4.8-10.8) x10^3/uL RBC (4.70-6.10) 10^6/uL Hgb (14.0-18.0) g/dL Hct (42.0-52.0) % MCV (80.0-94.0) fL MCH (27.0-31.0) pg MCHC (32.0-36.0) g/dL RDW (12.0-15.0) % Plt Count (130-450) 10^3/uL MPV (7.4-11.4) fL Neut # (1.5-6.6) 10^3/uL Lymph # (1.5-3.5) 10^3/uL [place] # (0.0-1.0) 10^3/uL Eos # (0.0-0.7) 10^3/uL Baso # (0.0-0.1) 10^3/uL Absolute Nucleated RBC x10^3/uL Nucleated RBC % /100WBC ESR 28 H (0-20) mm/Hr Sodium (135-145) mmol/L Potassium (3.5-5.0) mmol/L Chloride (101-111) mmol/L Carbon Dioxide (21-32) mmol/L Anion Gap (6-13) BUN (6-20) mg/dL Creatinine (0.6-1.2) mg/dL Estimated GFR (MDRD) (>89) Glucose (70-100) mg/dL Lactic Acid 1.1 (0.5-2.2) mmol/L Calcium (8.5-10.3) mg/dL Magnesium (1.7-2.8) mg/dL Total Creatine Kinase 75 (22-269) IU/L Troponin I (<0.49) ng/mL C-Reactive Protein 6.7 H (0-1.0) mg/dL TSH (0.34-5.60) uIU/mL 08/18/17 08/18/17 08/18/17 Range/Units 13:53 04:40 04:40 WBC 6.7 (4.8-10.8) x10^3/uL RBC 3.86 L (4.70-6.10) 10^6/uL Hgb 12.3 L (14.0-18.0) g/dL Hct 34.6 L (42.0-52.0) % MCV 89.6 (80.0-94.0) fL MCH 31.9 H (27.0-31.0) pg MCHC 35.6 (32.0-36.0) g/dL RDW 15.2 H (12.0-15.0) % Plt Count 274 (130-450) 10^3/uL MPV 7.7 (7.4-11.4) fL Neut # 5.0 (1.5-6.6) 10^3/uL Lymph # 0.9 L (1.5-3.5) 10^3/uL [place] # 0.5 (0.0-1.0) 10^3/uL Eos # 0.2 (0.0-0.7) 10^3/uL Baso # 0.0 (0.0-0.1) 10^3/uL Absolute Nucleated RBC 0.00 x10^3/uL Nucleated RBC % 0.0 /100WBC ESR (0-20) mm/Hr Sodium (135-145) mmol/L Potassium (3.5-5.0) mmol/L Chloride (101-111) mmol/L Carbon Dioxide (21-32) mmol/L Anion Gap (6-13) BUN (6-20) mg/dL Creatinine (0.6-1.2) mg/dL Estimated GFR (MDRD) (>89) Glucose (70-100) mg/dL Lactic Acid (0.5-2.2) mmol/L Calcium (8.5-10.3) mg/dL Magnesium 1.9 (1.7-2.8) mg/dL Total Creatine Kinase (22-269) IU/L Troponin I (<0.49) ng/mL C-Reactive Protein (0-1.0) mg/dL TSH 2.06 (0.34-5.60) uIU/mL 08/18/17 08/18/17 Range/Units 04:40 04:40 WBC (4.8-10.8) x10^3/uL RBC (4.70-6.10) 10^6/uL Hgb (14.0-18.0) g/dL Hct (42.0-52.0) % MCV (80.0-94.0) fL MCH (27.0-31.0) pg MCHC (32.0-36.0) g/dL RDW (12.0-15.0) % Plt Count (130-450) 10^3/uL MPV (7.4-11.4) fL Neut # (1.5-6.6) 10^3/uL Lymph # (1.5-3.5) 10^3/uL [place] # (0.0-1.0) 10^3/uL Eos # (0.0-0.7) 10^3/uL Baso # (0.0-0.1) 10^3/uL Absolute Nucleated RBC x10^3/uL Nucleated RBC % /100WBC ESR (0-20) mm/Hr Sodium 140 (135-145) mmol/L Potassium 3.7 (3.5-5.0) mmol/L Chloride 110 (101-111) mmol/L Carbon Dioxide 22 (21-32) mmol/L Anion Gap 8.0 (6-13) BUN 5 L (6-20) mg/dL Creatinine 0.9 (0.6-1.2) mg/dL Estimated GFR (MDRD) 81 L (>89) Glucose 142 H (70-100) mg/dL Lactic Acid (0.5-2.2) mmol/L Calcium 7.9 L (8.5-10.3) mg/dL Magnesium (1.7-2.8) mg/dL Total Creatine Kinase (22-269) IU/L Troponin I < 0.04 (<0.49) ng/mL C-Reactive Protein (0-1.0) mg/dL TSH (0.34-5.60) uIU/mL - Current Medications Current Medications: Current Medications Generic Name Dose Route Start Last Admin Trade Name Freq PRN Reason Stop Dose Admin Digoxin 250 mcg 08/17/17 16:00 08/18/17 09:54 Lanoxin Inj IVP 250 mcg DAILY GAYLE Administration Enoxaparin Sodium 40 mg 08/15/17 06:00 08/18/17 09:54 Lovenox SUBQ 40 mg DAILY GAYLE Administration Piperacillin Sod/Tazobactam 100 mls @ 200 mls/hr 08/15/17 07:00 08/18/17 13: 57 Sod 3.375 gm/ Sodium Chloride IV 200 mls/hr Q6H GAYLE Administration Acetaminophen 100 mls @ 400 mls/hr 08/15/17 05:00 02/11/18 13:56 Ofirmev IV Infused Q6HR GAYLE Infusion Potassium Chloride/Dextrose/Sod Cl 1,000 mls @ 83.333 mls/hr 08/16/17 09:00 08/18/17 14:04 D5.45ns W/20 Meq Kcl IV Not Given .Q12H GAYLE Lorazepam 0.5 mg 08/17/17 17:20 08/17/17 17:57 Ativan Inj (Vial) IVP 0.5 mg Q2H PRN Administration Anxiety Pantoprazole Sodium 40 mg 08/15/17 07:00 08/18/17 06:47 Protonix IVP 40 mg BIDAC GAYLE Administration Phenol/Menthol 2 sprays 08/15/17 16:07 08/16/17 05:50 Chloraseptic MM 2 sprays Q2HR PRN Administration Throat Pain Sodium Chloride 10 ml 08/15/17 01:09 08/18/17 12:08 Normal Saline Flush 0.9% IVP 20 ml PRN PRN Administration NEEDED PER PROVIDER ORDERS Sodium Chloride 10 ml 08/15/17 06:00 08/18/17 13:58 Normal Saline Flush 0.9% IVP Not Given Q8HR GAYLE - Physical Exam Wound/Incisions: positive: Healing well (Steristrips in place.) General Appearance: positive: No acute distress (Patient is waxing philosophically about . Told him that I did not think it was imminent.) Eyes Bilateral: positive: No lid inflammation, Conjunctivae nml, No scleral icterus Neck: positive: Thyroid nml Respiratory: positive: Chest non-tender, No respiratory distress, Breath sounds nml Cardiovascular: positive: Tachycardia Abdomen: positive: Non-tender, Nml bowel sounds, Other (Drain in place.) Skin: positive: Color nml Extremities: positive: Non-tender, Nml appearance Neurologic/Psychiatric: positive: Oriented x3 Impression/Plan - Problem List Problem List: D3 s/p laparoscopic exploration with Kely patch repair of perforated duodenal ulcer ) FEN Continue NG tube decompression, NPO and IVF to allow for Kely patch to heal and await leak test on Saturday as it cannot be done this weekend. Leak test MUST be done prior to discontinuing NG tube and starting oral intake. 2) ID No indication of infection. The tachycardia is not unexpected but mildly worrisome. SELMA drain must stay in place until after the leak test. Between the NG and the SELMA they are on either side of a potential leak - controlling it. 3) Ulcer Prevention and treatment with BID PPI. Considering patient's age and co-morbidities lifelong treatment is indicated. Patient will be discharged on oral daily PPI. 4) Afib Tachycardia is responsive to metoprolol per the nurse/vitals and of less concern to me now. The Hospitalists are on the case following and treating this. 5) Pain IV acetaminophen and morphine. 6) DVT prophylaxis Continue Lovenox. Ambulate as much as possible. Explained to patient the postoperative plan. If no leak tomorrow then pull NG and feed patient. If no increased output in drain and no evidence of infection , pull drain on Saturday and discharge. As it stands, with the hospital unable to obtain a leak test over the weekend ( not unforeseen), the patient will be hospitalized for more than 96 hours.
[2017-08-18] MEDS ORDERED: MAGNESIUM SULFATE 2 GRAM 2 GM/50 ML BAG IV ONE (15:00)
[2017-08-18] MEDS ORDERED: DIGOXIN 500 MCG/2 ML AMP IVP SCH (23:50)
[2017-08-19] MEDS: SODIUM CHLORIDE FLUSH 0.9% 10 ML SYRINGE IVP PRN ×3 (00:15→06:26)
[2017-08-19] MEDS: ACETAMINOPHEN 1,000 MG/100 ML 100 ML IV SCH ×4 (00:16→17:46)
[2017-08-19] MEDS: PIPERACILLIN/TAZOBACTAM 3.375 GM in SODIUM CHLORIDE 0.9% MINIBAG 100 ML IV SCH ×4 (01:10→18:33)
[2017-08-19] MEDS: METOPROLOL 5 MG/5 ML VIAL IVP SCH ×5 (01:10→16:58)
[2017-08-19] MEDS: SODIUM CHLORIDE FLUSH 0.9% 10 ML SYRINGE IVP SCH ×3 (04:44→16:11)
[2017-08-19 05:18] LABS: BASOPHILS # (AUTO) 0.2 10^3/uL (0.0-0.1); BASOPHILS % (AUTO) 3.1 %; EOSINOPHILS # (AUTO) 0.2 10^3/uL (0.0-0.7); EOSINOPHILS % (AUTO) 2.9 %; HGB - HEMOGLOBIN 12.6 g/dL (14.0-18.0); LYMPHOCYTES # (AUTO) 0.8 10^3/uL (1.5-3.5); MEAN CORPUSCULAR HEMOGLOBIN 31.1 pg (27.0-31.0); MEAN CORPUSCULAR HGB CONC 34.6 g/dL (32.0-36.0); MEAN CORPUSCULAR VOLUME 90.1 fL (80.0-94.0); MEAN PLATELET VOLUME 8.2 fL (7.4-11.4); MONOCYTES # (AUTO) 0.7 10^3/uL (0.0-1.0); MONOCYTES % (AUTO) 9.5 %; NEUTROPHILS # (AUTO) 5.1 10^3/uL (1.5-6.6); NEUTROPHILS % (AUTO) 72.5 %; PLT - PLATELET COUNT 319 10^3/uL (130-450); RED BLOOD COUNT 4.04 10^6/uL (4.70-6.10); RED CELL DISTRIBUTION WIDTH 15.2 % (12.0-15.0)
[2017-08-19 05:27] LABS: CALCIUM 7.8 mg/dL (8.5-10.3); CREATININE 0.8 mg/dL (0.6-1.2); MAGNESIUM 2.1 mg/dL (1.7-2.8); PHOSPHORUS 1.9 mg/dL (2.5-4.6)
[2017-08-19 05:31] LABS: DIGOXIN 1.1 ng/mL
[2017-08-19] MEDS: PANTOPRAZOLE 40 MG VIAL IVP SCH ×2 (06:25→16:10)
[2017-08-19] MEDS: DIGOXIN 500 MCG/2 ML AMP IVP SCH (08:34)
[2017-08-19] MEDS: ENOXAPARIN 40 MG/0.4 ML SYRINGE SUBQ SCH (08:35)
[2017-08-19] MEDS ORDERED: POTASSIUM CHLORIDE INJ 40 MEQ in SODIUM CHLORIDE 0.9% 480 ML IV ONE (08:37)
--- NOTE | 2017-08-19 10:17 | PROVIDER PROGRESS NOTE ---
Subjective - Prog Note Date Prog Note Date: 08/19/17 Prog Note Time: 10:16 - Subjective Pt reports feeling: Improved Subjective: Damion admits to sleeping well, has no complaints of pain from surgical sites. He denies SOB, chest pain, chest tightness, N/V or a new cough. Current Medications - Current Medications Current Medications: Active Medications Digoxin (Lanoxin Inj) 250 mcg IVP DAILY [facility] Last Admin: 08/19/17 08:34 Dose: 250 mcg Enoxaparin Sodium (Lovenox) 40 mg SUBQ DAILY [facility] Last Admin: 08/19/17 08:35 Dose: 40 mg Piperacillin Sod/Tazobactam (Sod 3.375 gm/ Sodium Chloride) 100 mls @ 200 mls/ hr IV Q6H [facility] Last Infusion: 08/19/17 07:03 Dose: Infused Acetaminophen (Ofirmev) 100 mls @ 400 mls/hr IV Q6HR [facility] Last Infusion: 08/19/17 06:10 Dose: Infused Potassium Chloride/Dextrose/Sod Cl (D5.45ns W/20 Meq Kcl) 1,000 mls @ 83.333 mls/hr IV .Q12H [facility] Last Infusion: 08/18/17 22:00 Dose: 83.3 mls/hr Potassium Chloride 40 meq/ (Sodium Chloride) 500 mls @ 125 mls/hr IV ONCE ONE Stop: 08/19/17 12:36 Last Admin: 08/19/17 10:09 Dose: 125 mls/hr Lorazepam (Ativan Inj (Vial)) 0.5 mg IVP Q2H PRN PRN Reason: Anxiety Last Admin: 08/17/17 17:57 Dose: 0.5 mg Metoprolol Tartrate (Lopressor Inj) 5 mg IVP Q4HR [facility] Last Admin: 08/19/17 08:34 Dose: 5 mg Morphine Sulfate (Morphine (Carpuject)) 2 mg IVP Q2HR PRN PRN Reason: Pain 8 to 10 Ondansetron HCl (Zofran Inj) 4 mg IVP Q6HR PRN PRN Reason: Nausea / Vomiting Pantoprazole Sodium (Protonix) 40 mg IVP BIDAC [facility] Last Admin: 08/19/17 06:25 Dose: 40 mg Phenol/Menthol (Chloraseptic) 2 sprays MM Q2HR PRN PRN Reason: Throat Pain Last Admin: 08/16/17 05:50 Dose: 2 sprays Sodium Chloride (Normal Saline Flush 0.9%) 10 ml IVP PRN PRN PRN Reason: NEEDED PER PROVIDER ORDERS Last Admin: 08/19/17 06:26 Dose: 10 ml Sodium Chloride (Normal Saline Flush 0.9%) 10 ml IVP Q8HR [facility]AYLE Last Admin: 08/19/17 06:26 Dose: 10 ml No Known Home Medications [No Known Home Medications] 10/06/14 Objective - Vital Signs/Intake & Output Reviewed Vital Signs: Yes Vital Signs: Vital Signs x48h Temp Pulse Pulse Resp BP BP Pulse Ox 08/19/17 08:34 108 H 139/95 H 08/19/17 07:55 37.0 C 76 16 146/72 H 94 08/19/17 04:57 98 16 129/70 08/19/17 04:54 96 16 104/53 L 08/19/17 04:43 147/69 H 08/19/17 04:42 105 H 18 147/69 H 08/19/17 03:25 36.5 C 108 H 16 143/68 H 95 Intake & Output: Intake & Output 08/16/17 08/17/17 08/18/17 08/19/17 23:59 23:59 23:59 23:59 Intake Total 2750.792 2291.49 2843.201 601.667 Output Total 3 2010 2635 1160 Balance 1077.792 281.49 208.201 -558.333 - Objective General Appearance: positive: No acute distress, Alert Eyes Bilateral: positive: Normal inspection ENT: positive: ENT inspection nml, Pharynx nml, No signs of dehydration Neck: positive: Nml inspection, Thyroid nml, No JVD Respiratory: positive: Chest non-tender, No respiratory distress, Breath sounds nml Cardiovascular: positive: No gallop, Irregularly irregular, Tachycardia, Systolic murmur, Decreased pulse(s) Peripheral Pulses: 1+ Radial (R), 1+ Radial (L) Abdomen: positive: Tenderness, Guarding, Abnml bowel sounds, Other (soft) Back: positive: Nml inspection Skin: positive: No rash, Warm, Dry Extremities: positive: Non-tender, Full ROM, Nml appearance, No pedal edema, Joint swelling Neurologic/Psychiatric: positive: Oriented x3, CN's nml (2-12), Motor nml, Sensation nml, Depressed mood/affect Reflexes: Bicep (R): 3+, Bicep (L): 3+ - Lab Results Fish Bones: 08/19/17 04:41 08/19/17 04:41 Other Labs: Lab Results x24hrs 08/19/17 08/19/17 08/19/17 Range/Units 04:41 04:41 04:41 WBC 7.0 (4.8-10.8) x10^3/uL RBC 4.04 L (4.70-6.10) 10^6/uL Hgb 12.6 L (14.0-18.0) g/dL Hct 36.4 L (42.0-52.0) % MCV 90.1 (80.0-94.0) fL MCH 31.1 H (27.0-31.0) pg MCHC 34.6 (32.0-36.0) g/dL RDW 15.2 H (12.0-15.0) % Plt Count 319 (130-450) 10^3/uL MPV 8.2 (7.4-11.4) fL Neut # 5.1 (1.5-6.6) 10^3/uL Lymph # 0.8 L (1.5-3.5) 10^3/uL [place] # 0.7 (0.0-1.0) 10^3/uL Eos # 0.2 (0.0-0.7) 10^3/uL Baso # 0.2 H (0.0-0.1) 10^3/uL Absolute Nucleated RBC 0.01 x10^3/uL Nucleated RBC % 0.1 /100WBC ESR (0-20) mm/Hr Sodium 134 L (135-145) mmol/L Potassium 3.9 (3.5-5.0) mmol/L Chloride 106 (101-111) mmol/L Carbon Dioxide 19 L (21-32) mmol/L Anion Gap 9.0 (6-13) BUN 5 L (6-20) mg/dL Creatinine 0.8 (0.6-1.2) mg/dL Estimated GFR (MDRD) 92 (>89) Glucose 135 H (70-100) mg/dL Lactic Acid (0.5-2.2) mmol/L Calcium 7.8 L (8.5-10.3) mg/dL Phosphorus 1.9 L (2.5-4.6) mg/dL Magnesium 2.1 (1.7-2.8) mg/dL Total Creatine Kinase (22-269) IU/L Troponin I (<0.49) ng/mL C-Reactive Protein (0-1.0) mg/dL TSH (0.34-5.60) uIU/mL Last Dose Date 08/18/17 Last Dose Time 1832 Digoxin 1.1 ng/mL 08/18/17 08/18/17 08/18/17 Range/Units 13:53 13:53 13:53 WBC (4.8-10.8) x10^3/uL RBC (4.70-6.10) 10^6/uL Hgb (14.0-18.0) g/dL Hct (42.0-52.0) % MCV (80.0-94.0) fL MCH (27.0-31.0) pg MCHC (32.0-36.0) g/dL RDW (12.0-15.0) % Plt Count (130-450) 10^3/uL MPV (7.4-11.4) fL Neut # (1.5-6.6) 10^3/uL Lymph # (1.5-3.5) 10^3/uL [place] # (0.0-1.0) 10^3/uL Eos # (0.0-0.7) 10^3/uL Baso # (0.0-0.1) 10^3/uL Absolute Nucleated RBC x10^3/uL Nucleated RBC % /100WBC ESR 28 H (0-20) mm/Hr Sodium (135-145) mmol/L Potassium (3.5-5.0) mmol/L Chloride (101-111) mmol/L Carbon Dioxide (21-32) mmol/L Anion Gap (6-13) BUN (6-20) mg/dL Creatinine (0.6-1.2) mg/dL Estimated GFR (MDRD) (>89) Glucose (70-100) mg/dL Lactic Acid 1.1 (0.5-2.2) mmol/L Calcium (8.5-10.3) mg/dL Phosphorus (2.5-4.6) mg/dL Magnesium (1.7-2.8) mg/dL Total Creatine Kinase (22-269) IU/L Troponin I < 0.04 (<0.49) ng/mL C-Reactive Protein (0-1.0) mg/dL TSH (0.34-5.60) uIU/mL Last Dose Date Last Dose Time Digoxin ng/mL 08/18/17 08/18/17 08/18/17 Range/Units 13:53 13:53 04:40 WBC 6.7 (4.8-10.8) x10^3/uL RBC 3.86 L (4.70-6.10) 10^6/uL Hgb 12.3 L (14.0-18.0) g/dL Hct 34.6 L (42.0-52.0) % MCV 89.6 (80.0-94.0) fL MCH 31.9 H (27.0-31.0) pg MCHC 35.6 (32.0-36.0) g/dL RDW 15.2 H (12.0-15.0) % Plt Count 274 (130-450) 10^3/uL MPV 7.7 (7.4-11.4) fL Neut # 5.0 (1.5-6.6) 10^3/uL Lymph # 0.9 L (1.5-3.5) 10^3/uL [place] # 0.5 (0.0-1.0) 10^3/uL Eos # 0.2 (0.0-0.7) 10^3/uL Baso # 0.0 (0.0-0.1) 10^3/uL Absolute Nucleated RBC 0.00 x10^3/uL Nucleated RBC % 0.0 /100WBC ESR (0-20) mm/Hr Sodium (135-145) mmol/L Potassium (3.5-5.0) mmol/L Chloride (101-111) mmol/L Carbon Dioxide (21-32) mmol/L Anion Gap (6-13) BUN (6-20) mg/dL Creatinine (0.6-1.2) mg/dL Estimated GFR (MDRD) (>89) Glucose (70-100) mg/dL Lactic Acid (0.5-2.2) mmol/L Calcium (8.5-10.3) mg/dL Phosphorus (2.5-4.6) mg/dL Magnesium (1.7-2.8) mg/dL Total Creatine Kinase 75 (22-269) IU/L Troponin I (<0.49) ng/mL C-Reactive Protein 6.7 H (0-1.0) mg/dL TSH 2.06 (0.34-5.60) uIU/mL Last Dose Date Last Dose Time Digoxin ng/mL 08/18/17 08/18/17 Range/Units 04:40 04:40 WBC (4.8-10.8) x10^3/uL RBC (4.70-6.10) 10^6/uL Hgb (14.0-18.0) g/dL Hct (42.0-52.0) % MCV (80.0-94.0) fL MCH (27.0-31.0) pg MCHC (32.0-36.0) g/dL RDW (12.0-15.0) % Plt Count (130-450) 10^3/uL MPV (7.4-11.4) fL Neut # (1.5-6.6) 10^3/uL Lymph # (1.5-3.5) 10^3/uL [place] # (0.0-1.0) 10^3/uL Eos # (0.0-0.7) 10^3/uL Baso # (0.0-0.1) 10^3/uL Absolute Nucleated RBC x10^3/uL Nucleated RBC % /100WBC ESR (0-20) mm/Hr Sodium (135-145) mmol/L Potassium (3.5-5.0) mmol/L Chloride (101-111) mmol/L Carbon Dioxide (21-32) mmol/L Anion Gap (6-13) BUN (6-20) mg/dL Creatinine (0.6-1.2) mg/dL Estimated GFR (MDRD) (>89) Glucose (70-100) mg/dL Lactic Acid (0.5-2.2) mmol/L Calcium (8.5-10.3) mg/dL Phosphorus (2.5-4.6) mg/dL Magnesium 1.9 (1.7-2.8) mg/dL Total Creatine Kinase (22-269) IU/L Troponin I < 0.04 (<0.49) ng/mL C-Reactive Protein (0-1.0) mg/dL TSH (0.34-5.60) uIU/mL Last Dose Date Last Dose Time Digoxin ng/mL - Diagnostic Imaging Diagnostic Imaging Results: positive: Prelim report reviewed, Final report reviewed Assessment/Plan - Problem List (1) Paroxysmal atrial fibrillation Impression: Patient has a history of atrial fibrillation. Attempts were made to obtain records from [place] [facility], but due to the time frame, were were unable. Patient's troponins, WBCs, and TSH all are noted to be normal. Patient presents no symptoms other than anxiety, and mild hypertension. Plans to advance treatment to oral forms after radiology testing is completed and there are no leaks found in GI tract. Patient continues on telemetry and shows atrial fibrillation, 90-120's. A dig level was checked and remains therapeutic. Plan: Continue to monitor labs, vital signs and make adjustments to medications as needed. Plan to start oral agents when cleared for oral intake. (2) Perforated ulcer of intestine Impression: Patient is without post-op complications, has remained afebrile, no pain to speak of when asked. Patient is noted to have "several watery stools that started overnight", c-diff ordered-pending. Patient remains with NG tube, and SELMA drainage tube in right abdomen. Plan: Continue care as per surgery Chiara Sibley MD or Dr. Mani Guerrero MD.
--- NOTE | 2017-08-19 14:37 | PROVIDER PROGRESS NOTE ---
Subjective - General Admit Date: 08/15/17 Procedure Date: 08/15/17 Post Op Days: 4 Procedure Performed: Laparoscopic exploration and kely patch repair - Review of Systems Wound/Incisions: positive: Healing well (Steristrips in place.) Drain Type: SELMA Drain Output Description: 9 serous and NOT bilious General: positive: No symptoms (Sleeping comfortably.) HEENT: positive: No symptoms Pulmonary: positive: No symptoms Cardiovascular: positive: No symptoms Gastrointestinal: positive: Flatus (Passing a large amount.), Other (No bowel movement.) Genitourinary: positive: Other (minimalo flatus. No emesis, no nausea, no bloating) Musculoskeletal: positive: No symptoms Skin: positive: No symptoms Psychiatric: positive: No symptoms. negative: Confusion All Other Systems: positive: Reviewed and negative Objective - Patient Data Reviewed Vital Signs: Yes Vital Signs: Vital Signs x48h Temp Pulse Pulse Resp BP BP Pulse Ox 08/19/17 13:16 109 H 18 154/92 H 98 08/19/17 13:03 145/78 H 08/19/17 12:00 36.9 C 88 16 145/78 H 97 08/19/17 08:34 108 H 139/95 H 08/19/17 07:55 37.0 C 76 16 146/72 H 94 Weight: Weight 08/17/17 08/18/17 08/19/17 23:59 23:59 23:59 Weight (kg) 83.5 kg Intake & Output: Intake and Output Totals x24h 08/17/17 08/18/17 08/19/17 23:59 23:59 23:59 Intake Total 2291.49 2843.201 1326.667 Output Total 20095 1740 Balance 281.49 208.201 -413.333 - Lab Results Lab Results: 08/19/17 04:41 08/19/17 04:41 Other Lab Results: Lab Results x24hrs 08/19/17 08/19/17 08/19/17 Range/Units 04:41 04:41 04:41 WBC 7.0 (4.8-10.8) x10^3/uL RBC 4.04 L (4.70-6.10) 10^6/uL Hgb 12.6 L (14.0-18.0) g/dL Hct 36.4 L (42.0-52.0) % MCV 90.1 (80.0-94.0) fL MCH 31.1 H (27.0-31.0) pg MCHC 34.6 (32.0-36.0) g/dL RDW 15.2 H (12.0-15.0) % Plt Count 319 (130-450) 10^3/uL MPV 8.2 (7.4-11.4) fL Neut # 5.1 (1.5-6.6) 10^3/uL Lymph # 0.8 L (1.5-3.5) 10^3/uL [place] # 0.7 (0.0-1.0) 10^3/uL Eos # 0.2 (0.0-0.7) 10^3/uL Baso # 0.2 H (0.0-0.1) 10^3/uL Absolute Nucleated RBC 0.01 x10^3/uL Nucleated RBC % 0.1 /100WBC Sodium 134 L (135-145) mmol/L Potassium 3.9 (3.5-5.0) mmol/L Chloride 106 (101-111) mmol/L Carbon Dioxide 19 L (21-32) mmol/L Anion Gap 9.0 (6-13) BUN 5 L (6-20) mg/dL Creatinine 0.8 (0.6-1.2) mg/dL Estimated GFR (MDRD) 92 (>89) Glucose 135 H (70-100) mg/dL Calcium 7.8 L (8.5-10.3) mg/dL Phosphorus 1.9 L (2.5-4.6) mg/dL Magnesium 2.1 (1.7-2.8) mg/dL Troponin I (<0.49) ng/mL Last Dose Date 08/18/17 Last Dose Time 1832 Digoxin 1.1 ng/mL 08/18/17 Range/Units 13:53 WBC (4.8-10.8) x10^3/uL RBC (4.70-6.10) 10^6/uL Hgb (14.0-18.0) g/dL Hct (42.0-52.0) % MCV (80.0-94.0) fL MCH (27.0-31.0) pg MCHC (32.0-36.0) g/dL RDW (12.0-15.0) % Plt Count (130-450) 10^3/uL MPV (7.4-11.4) fL Neut # (1.5-6.6) 10^3/uL Lymph # (1.5-3.5) 10^3/uL [place] # (0.0-1.0) 10^3/uL Eos # (0.0-0.7) 10^3/uL Baso # (0.0-0.1) 10^3/uL Absolute Nucleated RBC x10^3/uL Nucleated RBC % /100WBC Sodium (135-145) mmol/L Potassium (3.5-5.0) mmol/L Chloride (101-111) mmol/L Carbon Dioxide (21-32) mmol/L Anion Gap (6-13) BUN (6-20) mg/dL Creatinine (0.6-1.2) mg/dL Estimated GFR (MDRD) (>89) Glucose (70-100) mg/dL Calcium (8.5-10.3) mg/dL Phosphorus (2.5-4.6) mg/dL Magnesium (1.7-2.8) mg/dL Troponin I < 0.04 (<0.49) ng/mL Last Dose Date Last Dose Time Digoxin ng/mL - Current Medications Current Medications: Current Medications Generic Name Dose Route Start Last Admin Trade Name Freq PRN Reason Stop Dose Admin Digoxin 250 mcg 08/18/17 18:00 08/19/17 08:34 Lanoxin Inj IVP 250 mcg DAILY GAYLE Administration Enoxaparin Sodium 40 mg 08/15/17 06:00 08/19/17 08:35 Lovenox SUBQ 40 mg DAILY GAYLE Administration Piperacillin Sod/Tazobactam 100 mls @ 200 mls/hr 08/15/17 07:00 08/19/17 13: 38 Sod 3.375 gm/ Sodium Chloride IV Infused Q6H GAYLE Infusion Acetaminophen 100 mls @ 400 mls/hr 08/15/17 05:00 08/19/17 12:28 Ofirmev IV Infused Q6HR GAYLE Infusion Potassium Chloride/Dextrose/Sod Cl 1,000 mls @ 83.333 mls/hr 08/16/17 09:00 08/18/17 22:00 D5.45ns W/20 Meq Kcl IV 83.3 mls/hr .Q12H GAYLE Infusion Lorazepam 0.5 mg 08/17/17 17:20 08/17/17 17:57 Ativan Inj (Vial) IVP 0.5 mg Q2H PRN Administration Anxiety Metoprolol Tartrate 5 mg 08/18/17 17:00 08/19/17 13:03 Lopressor Inj IVP 5 mg Q4HR GAYLE Administration Pantoprazole Sodium 40 mg 08/15/17 07:00 08/19/17 06:25 Protonix IVP 40 mg BIDAC GAYLE Administration Phenol/Menthol 2 sprays 08/15/17 16:07 08/16/17 05:50 Chloraseptic MM 2 sprays Q2HR PRN Administration Throat Pain Sodium Chloride 10 ml 08/15/17 01:09 08/19/17 06:26 Normal Saline Flush 0.9% IVP 10 ml PRN PRN Administration NEEDED PER PROVIDER ORDERS Sodium Chloride 10 ml 08/15/17 06:00 08/19/17 06:26 Normal Saline Flush 0.9% IVP 10 ml Q8HR GAYLE Administration - Physical Exam Wound/Incisions: positive: Dressing dry and intact General Appearance: positive: No acute distress Eyes Bilateral: positive: No lid inflammation, Conjunctivae nml, No scleral icterus Neck: positive: Trachea midline Respiratory: positive: Chest non-tender, No respiratory distress, Breath sounds nml Cardiovascular: positive: Irregularly irregular Abdomen: positive: Non-tender, Nml bowel sounds Skin: positive: Color nml Extremities: positive: Nml appearance Neurologic/Psychiatric: positive: Oriented x3 Impression/Plan - Problem List Problem List: D4 s/p laparoscopic exploration with Kely patch repair of perforated duodenal ulcer ) FEN Obtain leak test today through NG tube. If leak continue NG and drain. If not then D/C NG and feed patient. If no increase in drain output pull it tomorrow and send the patient home. 2) ID No indication of infection. SELMA drain must stay in place until after the leak test. See #1 regarding leak test. 3) Ulcer Prevention and treatment with BID PPI. Considering patient's age and co-morbidities lifelong treatment is indicated. Patient will be discharged on oral daily PPI. 4) Afib Tachycardia is responsive to metoprolol per the nurse/vitals and of less concern to me now. The Hospitalists are on the case following and treating this. Patient documented to have afib in the past. Additionally hypertension is on the [employer]'s radar and may be situational. 5) Pain IV acetaminophen and morphine. 6) DVT prophylaxis Continue Lovenox. Ambulate as much as possible.
[2017-08-19] MEDS ORDERED: BARIUM SULFATE 148 GM POWDER PO ONE (15:49)
[2017-08-19] MEDS ORDERED: DIATR MEGLU/DIATRIZOATE SODIUM 120 ML BOTTLE PO ONE (15:49)
[2017-08-19] MEDS: D5.45NS W/20 MEQ KCL 1,000 ML IV SCH (16:11)
--- NOTE | 2017-08-19 16:53 | XRAY Report ---
SINGLE CONTRAST UPPER GI THROUGH NG TUBE: 08/19/2017 CLINICAL INDICATION: Postop duodenal ulcer repair with omental patch, evaluate for leak. FINDINGS: Initial cloth sander view of the abdomen demonstrates a normal bowel gas pattern. Nasogastric tube and epigastric drain are noted. Initially, Gastrografin was injected through the nasogastric tube, followed by thin barium. There was no evidence of contrast extravasation with either contrast. No contrast is seen in the epigastric surgical drain. Contrast passes freely through the stomach, the duodenal cap, and on into distal duodenum and more distal small bowel loops. Post-procedure overhead films demonstrate no extravasation and no contrast in the surgical drain. IMPRESSION: NO EVIDENCE OF CONTRAST EXTRAVASATION FROM THE DUODENAL ULCER REPAIR. FLUOROSCOPY TIME: 2 MINUTES 57 SECONDS; 15 SPOT IMAGES OBTAINED. TD: 08/19/2017 16:52
[2017-08-19] MEDS ORDERED: METOPROLOL SUCCINATE 50 MG TABLET PO SCH (18:00)
--- NOTE | 2017-08-19 18:16 | MISCELLANEOUS PROVIDER NOTE ---
Miscellaneous Provider Note - - Note: Gastrograffin study did not show a leak and I removed the NG tube and ordered a general diet.
[2017-08-19] MEDS: METOPROLOL SUCCINATE 50 MG TABLET PO SCH (21:35)
[2017-08-20] MEDS: ACETAMINOPHEN 1,000 MG/100 ML 100 ML IV SCH ×3 (00:01→11:33)
[2017-08-20] MEDS: PIPERACILLIN/TAZOBACTAM 3.375 GM in SODIUM CHLORIDE 0.9% MINIBAG 100 ML IV SCH ×3 (00:57→12:31)
[2017-08-20 05:37] LABS: BASOPHILS # (AUTO) 0.1 10^3/uL (0.0-0.1); BASOPHILS % (AUTO) 0.7 %; EOSINOPHILS # (AUTO) 0.2 10^3/uL (0.0-0.7); EOSINOPHILS % (AUTO) 2.4 %; HGB - HEMOGLOBIN 13.1 g/dL (14.0-18.0); LYMPHOCYTES # (AUTO) 1.4 10^3/uL (1.5-3.5); LYMPHOCYTES % (AUTO) 18.1 %; MEAN CORPUSCULAR HEMOGLOBIN 30.9 pg (27.0-31.0); MEAN CORPUSCULAR HGB CONC 34.1 g/dL (32.0-36.0); MEAN CORPUSCULAR VOLUME 90.6 fL (80.0-94.0); MEAN PLATELET VOLUME 7.7 fL (7.4-11.4); MONOCYTES # (AUTO) 0.8 10^3/uL (0.0-1.0); NEUTROPHILS # (AUTO) 5.3 10^3/uL (1.5-6.6); NEUTROPHILS % (AUTO) 68.8 %; PLT - PLATELET COUNT 332 10^3/uL (130-450); RED BLOOD COUNT 4.25 10^6/uL (4.70-6.10); RED CELL DISTRIBUTION WIDTH 15.6 % (12.0-15.0); WHITE BLOOD COUNT 7.7 x10^3/uL (4.8-10.8)
[2017-08-20 05:54] LABS: ALBUMIN 3.4 g/dL (3.2-5.5); ALBUMIN/GLOBULIN RATIO 1.2 (1.0-2.2); ALKALINE PHOSPHATASE 78 IU/L (42-121); ALT ALANINE AMINOTRANSFERASE 40 IU/L (10-60); AST ASPARTATE AMINOTRANSFERASE 35 IU/L (10-42); BILIRUBIN,TOTAL 1.1 mg/dL (0.2-1.0); BUN - BLOOD UREA NITROGEN < 5 mg/dL (6-20); CALCIUM 8.2 mg/dL (8.5-10.3); CARBON DIOXIDE - CO2 23 mmol/L (21-32); CHLORIDE 109 mmol/L (101-111); CREATININE 0.8 mg/dL (0.6-1.2); GFR - MDRD 92 (>89); GLUCOSE 153 mg/dL (70-100); MAGNESIUM 1.9 mg/dL (1.7-2.8); SODIUM 139 mmol/L (135-145); TOTAL PROTEIN 6.3 g/dL (6.7-8.2)
[2017-08-20] MEDS: D5.45NS W/20 MEQ KCL 1,000 ML IV SCH (06:03)
[2017-08-20] MEDS: SODIUM CHLORIDE FLUSH 0.9% 10 ML SYRINGE IVP PRN ×2 (06:04→15:42)
[2017-08-20] MEDS: PANTOPRAZOLE 40 MG VIAL IVP SCH ×2 (06:04→15:42)
[2017-08-20] MEDS: SODIUM CHLORIDE FLUSH 0.9% 10 ML SYRINGE IVP SCH ×2 (06:50→13:19)
[2017-08-20] MEDS: DIGOXIN 125 MCG TABLET PO SCH ×2 (08:07→08:09)
[2017-08-20] MEDS: ENOXAPARIN 40 MG/0.4 ML SYRINGE SUBQ SCH (08:08)
[2017-08-20] MEDS: METOPROLOL SUCCINATE 50 MG TABLET PO SCH (08:08)
--- NOTE | 2017-08-20 11:47 | PROVIDER PROGRESS NOTE ---
Subjective - Prog Note Date Prog Note Date: 08/20/17 Prog Note Time: 11:46 - Subjective Pt reports feeling: Improved Subjective: Damion states that he is feeling well and wishes to return home today. He denies SOB, chest pain, N/V or a new cough. He no longer feels anxious and admits to no palpitations or dizziness. Current Medications - Current Medications Current Medications: Active Medications Digoxin (Lanoxin) 250 mcg PO DAILY [facility] Last Admin: 08/20/17 08:09 Dose: Not Given Enoxaparin Sodium (Lovenox) 40 mg SUBQ DAILY [facility] Last Admin: 08/20/17 08:08 Dose: 40 mg Piperacillin Sod/Tazobactam (Sod 3.375 gm/ Sodium Chloride) 100 mls @ 200 mls/ hr IV Q6H [facility] Last Infusion: 08/20/17 10:18 Dose: Infused Acetaminophen (Ofirmev) 100 mls @ 400 mls/hr IV Q6HR [facility] Last Admin: 08/20/17 11:33 Dose: 400 mls/hr Potassium Chloride/Dextrose/Sod Cl (D5.45ns W/20 Meq Kcl) 1,000 mls @ 83.333 mls/hr IV .Q12H [facility] Last Admin: 08/20/17 06:03 Dose: 83.3 mls/hr Lorazepam (Ativan Inj (Vial)) 0.5 mg IVP Q2H PRN PRN Reason: Anxiety Last Admin: 08/17/17 17:57 Dose: 0.5 mg Metoprolol Succinate (Toprol Xl) 50 mg PO BID [facility] Last Admin: 08/20/17 08:08 Dose: 50 mg Morphine Sulfate (Morphine (Carpuject)) 2 mg IVP Q2HR PRN PRN Reason: Pain 8 to 10 Ondansetron HCl (Zofran Inj) 4 mg IVP Q6HR PRN PRN Reason: Nausea / Vomiting Pantoprazole Sodium (Protonix) 40 mg IVP BIDAC [facility] Last Admin: 08/20/17 06:04 Dose: 40 mg Phenol/Menthol (Chloraseptic) 2 sprays MM Q2HR PRN PRN Reason: Throat Pain Last Admin: 08/16/17 05:50 Dose: 2 sprays Sodium Chloride (Normal Saline Flush 0.9%) 10 ml IVP PRN PRN PRN Reason: NEEDED PER PROVIDER ORDERS Last Admin: 08/20/17 06:04 Dose: 10 ml Sodium Chloride (Normal Saline Flush 0.9%) 10 ml IVP Q8HR [facility] Last Admin: 08/20/17 06:50 Dose: Not Given No Known Home Medications [No Known Home Medications] 10/06/14 Objective - Vital Signs/Intake & Output Reviewed Vital Signs: Yes Vital Signs: Vital Signs x48h Temp Pulse Resp BP Pulse Ox 08/20/17 08:13 36.8 C 89 18 125/61 97 08/20/17 05:29 36.7 C 108 H 18 124/70 97 Intake & Output: Intake & Output 08/17/17 08/18/17 08/19/17 08/20/17 23:59 23:59 23:59 23:59 Intake Total 2291.49 2843.201 2475.309 2160 Output Total 20095 2095 880 Balance 281.49 208.201 335.488 7750 - Objective General Appearance: positive: No acute distress, Alert Eyes Bilateral: positive: Normal inspection, PERRL ENT: positive: ENT inspection nml, Pharynx nml, No signs of dehydration Neck: positive: Nml inspection, Thyroid nml, No JVD, Stiff neck Respiratory: positive: Chest non-tender, No respiratory distress, Breath sounds nml Cardiovascular: positive: No gallop, Irregularly irregular, Decreased pulse(s) Peripheral Pulses: 2+ Radial (R), 2+ Radial (L) Abdomen: positive: No organomegaly, Nml bowel sounds, No distention, Tenderness , Other (rounded, soft. SELMA to right abdomen looks healthy and intact. Only mild tenderness noted at surgical sites.) Back: positive: Nml inspection Skin: positive: No rash, Warm, Dry, Pallor Extremities: positive: Non-tender, Full ROM, Nml appearance, No pedal edema Neurologic/Psychiatric: positive: Oriented x3, CN's nml (2-12), Motor nml, Depressed mood/affect, Other (LA POSTA) Reflexes: Bicep (R): 2+, Bicep (L): 2+ - Lab Results Fish Bones: 08/20/17 05:20 08/20/17 05:20 Other Labs: Lab Results x24hrs 02/13/18 02/13/18 Range/Units 05:20 05:20 WBC 7.7 (4.8-10.8) x10^3/uL RBC 4.25 L (4.70-6.10) 10^6/uL Hgb 13.1 L (14.0-18.0) g/dL Hct 38.5 L (42.0-52.0) % MCV 90.6 (80.0-94.0) fL MCH 30.9 (27.0-31.0) pg MCHC 34.1 (32.0-36.0) g/dL RDW 15.6 H (12.0-15.0) % Plt Count 332 (130-450) 10^3/uL MPV 7.7 (7.4-11.4) fL Neut # 5.3 (1.5-6.6) 10^3/uL Lymph # 1.4 L (1.5-3.5) 10^3/uL [place] # 0.8 (0.0-1.0) 10^3/uL Eos # 0.2 (0.0-0.7) 10^3/uL Baso # 0.1 (0.0-0.1) 10^3/uL Absolute Nucleated RBC 0.01 x10^3/uL Nucleated RBC % 0.1 /100WBC Sodium 139 (135-145) mmol/L Potassium 4.5 (3.5-5.0) mmol/L Chloride 109 (101-111) mmol/L Carbon Dioxide 23 (21-32) mmol/L Anion Gap 7.0 (6-13) BUN < 5 L (6-20) mg/dL Creatinine 0.8 (0.6-1.2) mg/dL Estimated GFR (MDRD) 92 (>89) Glucose 153 H (70-100) mg/dL Calcium 8.2 L (8.5-10.3) mg/dL Magnesium 1.9 (1.7-2.8) mg/dL Total Bilirubin 1.1 H (0.2-1.0) mg/dL AST 35 (10-42) IU/L ALT 40 (10-60) IU/L Alkaline Phosphatase 78 (42-121) IU/L Total Protein 6.3 L (6.7-8.2) g/dL Albumin 3.4 (3.2-5.5) g/dL Globulin 2.9 (2.1-4.2) g/dL Albumin/Globulin Ratio 1.2 (1.0-2.2) - Diagnostic Imaging Diagnostic Imaging Results: positive: Final report reviewed Diagnostic Imaging Comments: EXAM: CT ABDOMEN AND PELVIS EXAM DATE: 08/14/2017 11:38 PM. CLINICAL HISTORY: Right-sided abdominal pain. COMPARISONS: None. TECHNIQUE: Routine helical CT imaging was performed through the abdomen and pelvis. IV contrast: 100 mL Isovue 300. Enteric contrast: No . Reconstructions: Coronal and sagittal. In accordance with CT protocol optimization, one or more of the following dose reduction techniques were utilized for this exam: automated exposure control, adjustment of mA and/or KV based on patient size, or use of iterative reconstructive technique. FINDINGS: Lung Bases: Mild cardiomegaly. Liver: Unremarkable. No suspicious masses. Gallbladder/Bile Ducts: Unremarkable. Spleen: Mildly enlarged. Pancreas: Unremarkable. Adrenal Glands: Unremarkable. Kidneys: Ptotic malrotated left kidney. Small left renal cyst. No suspicious masses or hydronephrosis. Peritoneal Cavity/Bowel: Mild pneumoperitoneum and free fluid appears to be secondary to a perforated ulcer in the region of the gastroduodenal junction, best seen on axial images 38 through 40. Extensive colonic diverticulosis. No abscess. Pelvic Organs: Mildly enlarged prostate. The bladder appears within normal limits. Vasculature: No aneurysms or other significant abnormality. Bones: No significant abnormality. Other: None. IMPRESSION: 1. Perforated ulcer in the region of the gastroduodenal junction. Mild pneumoperitoneum and free fluid. No abscess seen. 2. Extensive colonic diverticulosis. 3. Mildly enlarged prostate. 4. Mildly enlarged spleen. 5. Mild cardiomegaly. SINGLE CONTRAST UPPER GI THROUGH NG TUBE: 08/19/2017 CLINICAL INDICATION: Postop duodenal ulcer repair with omental patch, evaluate for leak. FINDINGS: Initial material scheduler view of the abdomen demonstrates a normal bowel gas pattern. Nasogastric tube and epigastric drain are noted. Initially, Gastrografin was injected through the nasogastric tube, followed by thin barium. There was no evidence of contrast extravasation with either contrast. No contrast is seen in the epigastric surgical drain. Contrast passes freely through the stomach, the duodenal cap, and on into distal duodenum and more distal small bowel loops. Post-procedure overhead films demonstrate no extravasation and no contrast in the surgical drain. IMPRESSION: NO EVIDENCE OF CONTRAST EXTRAVASATION FROM THE DUODENAL ULCER REPAIR. Assessment/Plan - Problem List (1) Paroxysmal atrial fibrillation Impression: Patient has a history of atrial fibrillation. Attempts were made to obtain records from [place] [facility], but due to the time frame, were were unable. Patient's troponins, WBCs, and TSH all are noted to be normal. Patient presents no symptoms other than anxiety, and mild hypertension. Plans to advance treatment to oral forms after radiology testing is completed and there are no leaks found in GI tract. Patient continues on telemetry and shows atrial fibrillation, 90-120's. A dig level was checked and remains therapeutic. Suggest to re-check around 08/25/17, to be completed by PCP. 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 Plan: Continue to monitor labs, vital signs. Start Metoprolol Succinate at 100mg BID and continue digoxin 0.25mg daily at home. (2) Perforated ulcer of intestine Impression: Patient is without post-op complications, has remained afebrile, no pain to speak of when asked. Patient is noted to have "several watery stools that started overnight", c-diff ordered-pending. Patient remains with NG tube, and SELMA drainage tube in right abdomen. Plan: Continue care as per surgery Chiara Sibley MD or Dr. Mani Guerrero MD.
[2017-08-20] MEDS ORDERED: METOPROLOL SUCCINATE 50 MG TABLET PO SCH (14:00)
--- NOTE | 2017-08-20 14:58 | Discharge Plan ---
Discharge Plan Disposition: 01 Home, Self Care Condition: Stable Prescriptions: Apixaban [Eliquis] 10 mg PO BID #100 tablet Digoxin [Lanoxin] 250 mcg PO DAILY #60 tablet Metoprolol Succinate [Toprol Xl] 100 mg PO BID #60 tablet Pantoprazole [Protonix inj] 40 mg IVP BIDAC #60 vial Diet: Regular Activity Restrictions: No Restrictions Shower Restrictions: No Driving Restrictions: No Assistance Devices: Other (None.) Weight Bearing: Full Weight Additional Instructions or Follow Up instructions: On approximately midnight on August 15, 2017 you were seen in the Emergency Department at [facility] for a perforated duodenal ulcer. Dr. Sibley was called and emergently operated on you patching the hole in your duodenum with a patch of fat in your abdomen. A nasogastric tube was placed in your stomach and a drain was placed in the right upper quadrant to determine if there was a leak and protect the patch. You were placed on antibiotics and Protonix (which stops acid production in the stomach to help the intestine heal). On SaturdayAugust 19 you hade a radiologic study that showed that the patch was holding and there was no leak. There was no leak and the nasogastric tube was removed. You were started on general diet which you tolerated. You did not have increased drain output and I removed your drain today. In the interim you developed a fast heart rate (atrial fibrillation) which in a review of your chart you had before. I consulted the [place] group who opined that you should be on medications that would slow down your heart rate as well as anticoagulation to prevent clots. I have prescribed these medications but you should definitely follow up with your primary physician and a corrugated sheet material sheeter so that a determination can be made as to what therapy is needed. You are to call us with surgical questions and your primary physician for medical question. No Smoking: If you smoke, Please STOP! Call for help. Follow-up with: Christy Fry MD [Primary Care Provider] - CONCHIS SIBLEY MD [Provider Admit Priv/Credential] - Clyde Bowling MD [Provider Admit Priv/Credential] -
[2017-08-20] MEDS ORDERED: APIXABAN 2.5 MG TABLET PO SCH (15:00)
[2017-08-20 15:41] VITALS: BP 134/86
== END 2017-08-20 15:50 | disposition home or self-care (01) | DRG 331 ==
LOC: ED 21:19 → MS2 08-15 01:09
PROVIDERS: ADMIT Surgery; ATTEND Surgery
PROC: 0DU947Z Supplement Duodenum with Autologous Tissue Substitute, Percutaneous Endoscopic Approach (ICD-10-PCS; principal; 2017-08-15 01:30)
DX: K27.5 Chronic or unspecified peptic ulcer, site unspecified, with perforation (principal); K26.5 Chronic or unspecified duodenal ulcer with perforation; I48.0 Paroxysmal atrial fibrillation; I10 Essential (primary) hypertension; F12.280 Cannabis dependence with cannabis-induced anxiety disorder
CPT/HCPCS: 36415; 74177; 74241; 80048; 80053; 80162; 81001; 81003; 82550; 83605; 83690; 83735; 84100; 84443; 84484; 85025; 85651; 86140; 87086; 87493; 93005; 93306; 96361; 96365; 96375; 96376; 99284; 99285

== ENCOUNTER 2017-09-16 19:20 | Outpatient (CLI) | payer MEDICARE ==
[2017-09-16 19:47] LABS: BASOPHILS % (AUTO) 0.5 %; EOSINOPHILS # (AUTO) 0.1 10^3/uL (0.0-0.7); EOSINOPHILS % (AUTO) 1.9 %; LYMPHOCYTES # (AUTO) 1.9 10^3/uL (1.5-3.5); MEAN CORPUSCULAR HEMOGLOBIN 31.4 pg (27.0-31.0); MEAN CORPUSCULAR HGB CONC 34.4 g/dL (32.0-36.0); MEAN CORPUSCULAR VOLUME 91.5 fL (80.0-94.0); MEAN PLATELET VOLUME 8.4 fL (7.4-11.4); MONOCYTES # (AUTO) 0.7 10^3/uL (0.0-1.0); NEUTROPHILS # (AUTO) 4.6 10^3/uL (1.5-6.6); NEUTROPHILS % (AUTO) 61.6 %; PLT - PLATELET COUNT 178 10^3/uL (130-450); RED BLOOD COUNT 4.44 10^6/uL (4.70-6.10); RED CELL DISTRIBUTION WIDTH 16.3 % (12.0-15.0); WHITE BLOOD COUNT 7.5 x10^3/uL (4.8-10.8)
[2017-09-16 20:02] LABS: ALBUMIN 4.5 g/dL (3.2-5.5); ALBUMIN/GLOBULIN RATIO 1.6 (1.0-2.2); ALKALINE PHOSPHATASE 63 IU/L (42-121); ALT ALANINE AMINOTRANSFERASE 47 IU/L (10-60); AST ASPARTATE AMINOTRANSFERASE 36 IU/L (10-42); BILIRUBIN,TOTAL 1.7 mg/dL (0.2-1.0); BUN - BLOOD UREA NITROGEN 25 mg/dL (6-20); CALCIUM 9.4 mg/dL (8.5-10.3); CARBON DIOXIDE - CO2 26 mmol/L (21-32); CHLORIDE 103 mmol/L (101-111); CHOL/HDL RATIO 5.6 (<5.0); CHOLESTEROL 208 mg/dL; GFR - MDRD 71 (>89); GLUCOSE 161 mg/dL (70-100); HDL CHOLESTEROL 37 mg/dL; LDL CHOLESTEROL,CALCULATED 131 mg/dL; LDL/HDL RATIO 3.5 (<3.6); SODIUM 138 mmol/L (135-145); TOTAL PROTEIN 7.3 g/dL (6.7-8.2); VLDL CHOLESTEROL 40 mg/dL
[2017-09-16 22:01] LABS: DIGOXIN < 0.2 ng/mL
[2017-09-18 09:19] LABS: HB2 TOTAL 15.2 g/dL; HEMOGLOBIN A1C 0.63 g/dL; HEMOGLOBIN A1C % 5.9 % (4.6-6.2)
== END 2017-09-16 19:21 | disposition home or self-care (01) ==
LOC: LAB 19:20
PROVIDERS: ATTEND Internal Medicine
DX: R73.01 Impaired fasting glucose (principal); I48.91 Unspecified atrial fibrillation; Z79.899 Other long term (current) drug therapy; H91.90 Unspecified hearing loss, unspecified ear; Z87.11 Personal history of peptic ulcer disease; Z13.6 Encounter for screening for cardiovascular disorders
CPT/HCPCS: 36415; 80053; 80061; 80162; 83036; 83721; 84443; 85025

== ENCOUNTER 2018-06-18 13:23 | Outpatient (CLI) | payer MEDICARE | END 2018-06-18 13:24 | disposition critical access hospital (66) | LOC: EMS 13:23 | PROVIDERS: ATTEND Surgery | DX: R26.81 Unsteadiness on feet (principal); R47.81 Slurred speech; R53.1 Weakness; R29.810 Facial weakness | CPT/HCPCS: A0425; A0427 ==

== ENCOUNTER 2018-06-18 13:33 | Emergency (ER) | payer MEDICARE ==
[2018-06-18] MEDS ORDERED: IOVERSOL 320 100 ML VIAL IVP ONE ×2 (13:42→14:07)
--- NOTE | 2018-06-18 13:46 | ED Physician Documentation ---
History of Present Illness - Stated complaint Stated Complaint: POSS TIA - Additonal information Additional information: hx from EMS and pt 82 male hx a fib not on any meds per EMS had TIA sx a week ago, per EMS details unknown and did not come to ED for same today was working in yard carrying firewood at at 1250 had witness onset of aphasia confusion and right facial droop EMS and family reported parisa ext weakness but it seems the issue is more receptive aphasia so pt does not understand to raise his arms and legs when asked unable to determine if pt is in pain no fall no seizure no blood thinners Review of Systems Unable to obtain: Confused PD PAST MEDICAL HISTORY - Past Medical History Cardiovascular: Hypertension, Atrial fibrillation, Arrhythmia Respiratory: None Endocrine/Autoimmune: None GI: None : Frequency HEENT: Chronic hearing loss Psych: Anxiety Musculoskeletal: None Derm: None - Past Surgical History General: Bowel surgery HEENT: Cataracts - Allergies Allergies/Adverse Reactions: Allergies Allergy/AdvReac Type Severity Reaction Status Date / Time No Known Drug Allergies Allergy Verified 06/18/18 13:46 - Social History Does the pt smoke?: No Smoking Status: Former smoker Does the pt drink ETOH?: Yes - Immunizations Immunizations are current?: Yes - POLST Patient has POLST: No POLST Status: Full Code PD ED PE NORMAL - Vitals Vital signs reviewed: Yes - General General: No: Alert and oriented X 3 - HEENT HEENT: PERRL, Other (right facial droop, diff to get pt to follow my finger for EOMI, he nods that he can see out of both eyes and shakes head re field cut) - Neck Neck: Supple, no meningeal sign - Cardiac Cardiac: RRR (tachy) - Respiratory Respiratory: No respiratory distress, Clear bilaterally - Abdomen Abdomen: Non tender - Derm Derm: Normal color - Neuro Neuro: No sensory deficit (pt nods when asked if he can feel my touch). 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 (right facial droop), No motor deficit (no movement right arm and leg), Normal speech (non verbal, appears to have recetive aphasia as well) Eye Opening: Spontaneous Results - Vitals Vitals: Vital Signs - 24 hr 06/18/18 06/18/18 06/18/18 13:40 15:07 15:30 Temperature 36.8 C Heart Rate 125 H 120 H 134 H Respiratory 16 20 14 Rate Blood Pressure 152/99 H 142/97 H 142/97 H O2 Saturation 99 100 95 Oxygen O2 Source Room air - EKG (time done) 1402 Rate: Rate (enter#) (114) Rhythm: Atrial fibrillation [place]: Normal Ischemia: Non specific changes - Labs Labs: Laboratory Tests 06/18/18 06/18/18 06/18/18 13:40 13:40 13:40 WBC 6.4 RBC 4.25 L Hgb 14.0 Hct 38.4 L MCV 90.4 MCH 32.9 H MCHC 36.3 H RDW 15.6 H Plt Count 220 MPV 7.8 Neut # (Auto) 4.3 Lymph # (Auto) 1.5 Gordon # (Auto) 0.5 Eos # (Auto) 0.1 Baso # (Auto) 0.0 Absolute Nucleated RBC 0.01 Nucleated RBC % 0.1 PT 14.5 H INR 1.3 H APTT 26.7 Sodium 137 Potassium 3.4 L Chloride 105 Carbon Dioxide 26 Anion Gap 6.0 BUN 19 Creatinine 1.0 Estimated GFR (MDRD) 71 L Glucose 155 H Calcium 8.8 - Rads (name of study) CTH Radiology: See rad report (no bleed no established CVA no tumor) CTAH Radiology: Discussed with rads (3 mm thrombus at M2M3 jx of left sylvian protion of L MCA) CTA neck Radiology: See rad report (atherosclerosis R carotid bifurcation < 50%, 5 mm thyroid nodule, 2 mm RUL lung nodule) PD MEDICAL DECISION MAKING - ED course ED course: pt slightly improved after CTs - startign to speak and move right side had telestroke eval - neuro Dr Violetta Rowell rec TPA I went to get consent and review contraindications - pt had GIB in Aug 2017 from perforated ulcer but no bleeding since - INR 1.3 - no absolute contraindications but as i was doing consent and reviewing risks benefits i can see he is now sig better - no drift, facial droop resolved, by 1430 his NIHSS is down to 3 - slight facial droop, slight dysarthria, slight expressive aphasia - he continues to show rapid continued improvement spoke to neuro Dr Heidi Mejia again - given sig improvement in the short time he has been here,his INR 1.3, his hx GIB last Aug, I feel and neuro agrees that risk of systemic TPA outweighs benefit - will not give TPA - but since MCA thrombus was seen on CT[facility] will [facility] to [facility] for IR - per neuro rec gave asa 324 PO pt contineud to improve throughout ER stay [facility] arrived and transported pt in good condition addendum - in the midst of d/w several radiologists neurologist and arranging transfer I forgot to tell pt about the lung and thyroid nodules incidentally seen so called his PMD Dr Osborne and told her and she will follow up - TPA CVA checklist Inclusion crititeria: positive: Sig neuro deficit, Onset know < 4.5 hr Absolute contraindications: negative: SBP>185 DBP>110 s/p tx, CT shows bleed, CT shows major est CVA, Platelets <100K, INR >1.7, Known bleeding disorder, Surgery/trauma < 15 days, Seizure at onset, Internal bleed < 22 days, Brain/spine surg < 3 m, Head trauma < 3 m, CVA < 3 months, Any hx ICH, Any hx brain aneurysm, Any hx brain AVM, Any hx brain tumor, Suspect SAH Relative contraindications: positive: Advanced age (but independent and functional at baseline). 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 CVA (cerebral vascular accident) Qualifiers: CVA mechanism: unspecified Qualified Code(s): I63.9 - Cerebral infarction, unspecified Condition: Fair Discharge Date/Time: 06/18/18 15:35 NIHSS - Time Time: 13:40 - Level of Consciousness Level of consciousness: (0) Alert, Keenly responsive LOC Questions: (2) Answers neither correct LOC Commands: (1) Performs one correctly - Gaze Best Gaze: (0) Normal - Visual Visual: (0) No loss - Facial Palsy Facial Palsy: (2) Partial paralysis - Motor Arms (both separate) Motor Arm (right): (4) No movement Motor Arm (left): (0) No drift (if I lift arm into palce he can maintain it) - Motor Legs (both separate) Motor Leg (right): (4) No movement Motor Leg (left): (0) No drift (if i lift leg into place he can maintain it) - Limb Ataxia Limb Ataxia: (2) Present in 2 limbs (pt unable to understand my instructions) - Sensory Sensory: (0) Normal - Best Language Best Language: (3) Mute, global aphasia - Dysarthria Dysarthria: (-) Intubated or other barrier, use comment (not speaking) - Extinction and Inattention (formally neg Extinction and inattention: (0) No abnormality (but diff to assess give expressive receptive aphasia) - Total Score/Results Total Score/Result: 18
[2018-06-18 13:49] LABS: BASOPHILS % (AUTO) 0.5 %; EOSINOPHILS # (AUTO) 0.1 10^3/uL (0.0-0.7); EOSINOPHILS % (AUTO) 1.3 %; LYMPHOCYTES # (AUTO) 1.5 10^3/uL (1.5-3.5); LYMPHOCYTES % (AUTO) 23.6 %; MEAN CORPUSCULAR HEMOGLOBIN 32.9 pg (27.0-31.0); MEAN CORPUSCULAR HGB CONC 36.3 g/dL (32.0-36.0); MEAN CORPUSCULAR VOLUME 90.4 fL (80.0-94.0); MEAN PLATELET VOLUME 7.8 fL (7.4-11.4); MONOCYTES # (AUTO) 0.5 10^3/uL (0.0-1.0); MONOCYTES % (AUTO) 8.4 %; NEUTROPHILS # (AUTO) 4.3 10^3/uL (1.5-6.6); NEUTROPHILS % (AUTO) 66.2 %; PLT - PLATELET COUNT 220 10^3/uL (130-450); RED BLOOD COUNT 4.25 10^6/uL (4.70-6.10); RED CELL DISTRIBUTION WIDTH 15.6 % (12.0-15.0); WHITE BLOOD COUNT 6.4 x10^3/uL (4.8-10.8)
[2018-06-18 13:53] LABS: INR 1.3 (0.8-1.2); PT - PROTHROMBIN TIME 14.5 secs (9.9-12.6)
[2018-06-18 13:56] LABS: CALCIUM 8.8 mg/dL (8.5-10.3)
[2018-06-18] MEDS ORDERED: WATER FOR INJECTION STERILE IV STA (14:13)
[2018-06-18] MEDS ORDERED: ALTEPLASE IV STA (14:13)
--- NOTE | 2018-06-18 14:16 | CT Report ---
Reason: 1250 onset R hemiparesis and aphasia Procedure Date: 06/18/2018 Accession Number: [id number] / [id number] Procedure: CT - Head W/O Stroke Protocol CPT Code: FULL RESULT: EXAM: CT HEAD EXAM DATE: 06/18/2018 01:57 PM. CLINICAL HISTORY: 1250 onset R hemiparesis and aphasia. COMPARISON: None. TECHNIQUE: Multiaxial CT images were obtained from the foramen magnum to the vertex. Reformats: Sagittal and coronal. IV contrast: None. In accordance with CT protocol optimization, one or more of the following dose reduction techniques were utilized for this exam: automated exposure control, adjustment of mA and/or KV based on patient size, or use of iterative reconstructive technique. FINDINGS: Parenchyma: There is apparent mesial left occipital lobe encephalomalacia which may reflect chronic infarct. No intraparenchymal hemorrhage. No evidence of mass, midline shift, or CT findings of acute infarction. Masters-white differentiation is distinct. Diffuse chronic microangiopathic white matter changes are evident. Extraaxial Spaces: Normal for age. No subdural or epidural collections identified. Ventricles: The ventricles and cortical sulci are enlarged, consistent with age-related tissue loss. Sinuses and orbits: Peripherally mineralized mucous retention cyst or polyp versus expansile odontogenic cyst at the floor of the right maxillary sinus. Small mucus retention cyst or polyp in the left maxillary sinus. Bones: No evidence of fracture or calvarial defect. Other: None. IMPRESSION: 1. No definite acute intracranial abnormality. No acute intracranial hemorrhage. 2. Apparent mesial left occipital lobe encephalomalacia suggesting chronic infarct. 3. Chronic atrophic and probable microvascular ischemic changes. 4. Paranasal sinus disease. RADIA The call report notification system was initiated by Dr. Sigifredo Tobar at 14:08 hrs on 06/18/18. The above findings were discussed with Heidi Carson by Dr. Sigifredo Tobar at 14:13 hrs on 06/18/18.
--- NOTE | 2018-06-18 14:39 | CT Report ---
Reason: L sided facial droop Procedure Date: 06/18/2018 Accession Number: [id number] / [id number] Procedure: CT - Head Angio CPT Code: FULL RESULT: EXAM: CT ANGIOGRAM HEAD AND NECK. CT SCAN HEAD WITH CONTRAST. EXAM DATE:06/18/2018 01:57 PM. CLINICAL HISTORY:82-year-old with right facial droop. COMPARISON:Noncontrast CT head 06/18/2018. TECHNIQUE: Routine axial helical CTA imaging was performed from the aortic arch through the [place] of [place]. Routine axial CT imaging of the head was performed following contrast administration. Reconstructions: Routine multiplanar 3D MIP reconstructions. IV contrast: 80 cc Optiray 370. NASCET Criteria are used for stenosis measurements. In accordance with CT protocol optimization, one or more of the following dose reduction techniques were utilized for this exam: automated exposure control, adjustment of mA and/or KV based on patient size, or use of iterative reconstructive technique. FINDINGS: CT SCAN HEAD: Parenchyma: No acute parenchymal hemorrhage, mass, or midline shift. There is small volume encephalomalacia of the medial left occipital lobe. There is mild to moderate bilateral areas of white matter hypoattenuation seen that are age-indeterminate but appear chronic. There is no convincing CT evidence of acute infarct. Mild cortical volume loss. No abnormal postcontrast enhancement. Extraaxial Spaces: Sulci and cisterns appear prominent but appropriate for the extent of volume loss. No subdural or epidural collections identified. Ventricles: Lateral ventricles and third ventricle appear prominent but appropriate for the extent of volume loss. Sinuses and Orbits: Changes of bilateral lens replacement. Moderate right maxillary mucosal retention cyst versus polyp. Mastoid air cells and middle ear cavities are clear. Bones: No evidence of fracture or calvarial defect. Other: Vascular calcifications of the cavernous ICA segments. CT ANGIOGRAM HEAD AND NECK: Minimal atherosclerotic calcifications of the aortic arch with no high-grade stenosis. The left common carotid artery appears to arise from the right brachiocephalic artery. RIGHT: Common Carotid Artery: Patent without significant stenosis. Carotid Bulb: There is mild atherosclerotic plaque at the bifurcation and siphon. Stenosis at the bifurcation by NASCET criteria: Less than 50% stenosis. Internal Carotid Artery: The cervical ICA appears normal with no high-grade stenosis or dissection seen. Atherosclerotic plaque involving the cavernous ICA segment with no high-grade stenosis seen. There is an inferiorly projecting outpouching arising from the right supraclinoid ICA measuring 1 x 1 mm (series 2, image 544) that likely represents infundibulum. External Carotid Artery: Unremarkable. Vertebral Artery: Patent without significant stenosis. No evidence of dissection. No aneurysm. Anterior Cerebral Artery: Patent without significant stenosis, aneurysm, or vascular malformation. Middle Cerebral Artery: Patent without significant stenosis, aneurysm, or vascular malformation. Posterior Cerebral Artery: Patent without significant stenosis, aneurysm, or vascular malformation. Posterior Communicating Artery: Patent. No aneurysm. LEFT: Common Carotid Artery: Patent without significant stenosis. Carotid Bulb: There is mild atherosclerotic plaque at the bifurcation and siphon. Stenosis at the bifurcation by NASCET criteria: No significant stenosis. Internal Carotid Artery: No evidence of dissection. No evidence of aneurysm along the intracranial ICA. External Carotid Artery: Unremarkable. Vertebral Artery: Patent without significant stenosis. No evidence of dissection. Anterior Cerebral Artery: Patent without significant stenosis, aneurysm, or vascular malformation. Middle Cerebral Artery: The M1 and proximal mid M2 segments appear normal. There is abrupt loss of contrast opacification of the M2 M3 junction of the sylvian left MCA (series 10, image 51). There is contrast opacification seen within distal left MCA branches. No aneurysm. Posterior Cerebral Artery: Patent without significant stenosis, aneurysm, or vascular malformation. Posterior Communicating Artery: Patent. No aneurysm. CENTRAL: Anterior Communicating Artery: Patent. No aneurysm. Basilar Artery: Patent without significant stenosis. No aneurysm. DURAL VENOUS SINUSES AND MAJOR CENTRAL VEINS: Patent. OTHER: The visualized pharynx and larynx appear normal. Major salivary glands appear normal. There is a hypodense thyroid nodule seen involving the thyroid isthmus measuring up to 5 mm (series 2, image 154). No cervical lymphadenopathy or necrotic lymph nodes seen. Soft tissues of the neck appear normal. Right upper lobe pulmonary nodule measuring up to 2 mm (series 2, image 21). No acute fracture or traumatic subluxation of the cervical spine. Multilevel degenerative changes. No suspicious osseous lesion. IMPRESSION: CT SCAN HEAD: 1. No definite acute infarct seen. If there is clinical concern for acute stroke or symptoms persist an MR brain could be considered to evaluate small or subtle pathology. ASPECTS 10R/10L 2. No acute intracranial hemorrhage, mass, hydrocephalus, or midline shift. No abnormal postcontrast enhancement. 3. There appears to be small volume encephalomalacia involving the medial left occipital lobe likely in the region of prior infarct. 4. Mild to moderate white matter changes that are age-indeterminate but appear chronic suggesting potential sequela of chronic small vessel ischemic disease. CT ANGIOGRAM NECK: 1. There is atherosclerotic plaque involving the right carotid bifurcation with less than 50% stenosis. 2. Otherwise vasculature of the neck demonstrates no significant stenosis or dissection. CT ANGIOGRAM HEAD: 1. There is abrupt cutoff of the M2 M3 junction of a left sylvian MCA branch concerning for acute thrombus. 2. No definite aneurysm. RADIA The above findings were discussed with Renee Crystal by Dr. Rangel Carlton at 14:28 hrs on 06/18/18.
[2018-06-18] MEDS ORDERED: ASPIRIN CHEW 81 MG TABLET PO STA (14:50)
[2018-06-18 15:07] VITALS: BP 142/97
== END 2018-06-18 15:35 | disposition short-term general hospital (02) ==
LOC: ED 13:33
DX: I66.02 Occlusion and stenosis of left middle cerebral artery (principal); I63.9 Cerebral infarction, unspecified; I10 Essential (primary) hypertension; R91.8 Other nonspecific abnormal finding of lung field; E04.2 Nontoxic multinodular goiter; Z86.79 Personal history of other diseases of the circulatory system; Z87.891 Personal history of nicotine dependence; Z87.19 Personal history of other diseases of the digestive system
CPT/HCPCS: 36415; 70450; 70496; 70498; 80048; 85025; 85610; 85730; 93005; 99284; 99285; A9270; Q3014; Q9967

== ENCOUNTER 2018-07-19 09:19 | Outpatient (CLI) | payer MEDICARE ==
[2018-07-19] MEDS ORDERED: IOVERSOL 320 100 ML VIAL IVP ONE ×2 (10:06→18:04)
--- NOTE | 2018-07-21 16:53 | Ultrasound Report ---
Reason: PULM NODULE,THYROID NODULE Procedure Date: 07/19/2018 Accession Number: [id number] / [id number] Procedure: US - Head or Neck Soft Tissue CPT Code: FULL RESULT: EXAM: THYROID ULTRASOUND EXAM DATE: 07/19/2018 12:30 PM. CLINICAL HISTORY: Reassessment of thyroid nodule seen on CT angiogram of the head and neck performed on 06/18/2018, in an 83-year-old male. COMPARISON: CT angiogram head and neck performed on 06/18/2018. TECHNIQUE: Real time sonographic imaging of the thyroid was performed by the core sucker. Multiple welding equipment sales representative static images were saved for review. FINDINGS: THYROID GLAND: Right Lobe: 5.6 x 1.8 x 1.6 cm, volume 8.5 cc. Normal background echotexture. Right Lobe Nodules: None. Left Lobe: 4.7 x 1.4 x 1.4 cm, volume 4.9 cc. Normal background echotexture. Left Lobe Nodules: Ovoid left mid lateral thyroid, hypoechoic minimally vascular nodule 1.3 x 1 x 0.88 cm. Isthmus: 0.42 cm AP. Isthmic Nodules: Right-sided hypoechoic minimally vascular heterogeneous 0.9 x 0.6 x 0.8 cm. LYMPH NODES: No adenopathy demonstrated in the central or lateral compartment. OTHER: None. IMPRESSION: Two similar appearing hypoechoic mildly vascular solid nodules, one in the right side of the isthmus, as noted on prior CT, and the other in the mid lateral portion of the left thyroid lobe. These are both considered Intermediate Suspicion by [place] [employer] guidelines. The larger left-sided nodule qualifies for biopsy at this time. Ultrasound-guided needle biopsy recommended for follow-up evaluation. The smaller isthmus nodule does not qualify for biopsy at this time, as it is just under 1 cm in size, but could also be biopsied if felt to be clinically indicated. If not biopsied, one year follow-up thyroid ultrasound recommended to assess for stability. Management recommendations are based on 2015 [place] [employer] Management Guidelines for Adult Patients with Thyroid Nodules and Differentiated Thyroid Cancer. RADIA
--- NOTE | 2018-07-22 10:26 | CT Report ---
Reason: PULM NODULE,THYROID NODULE Procedure Date: 07/19/2018 Accession Number: [id number] / [id number] Procedure: CT - Chest W/ CPT Code: FULL RESULT: EXAM: CT CHEST WITH CONTRAST EXAM DATE: 07/19/2018 10:27 AM. CLINICAL HISTORY: PULM NODULE,THYROID NODULE. COMPARISONS: CTA HEAD / NECK WITHOUT AND WITH CONTRAST PLUS PERFUSION 06/18/2018 4:[address] ABDOMEN/PELVIS W/ 08/14/2017 11:25 PM. TECHNIQUE: Routine helical CT imaging was performed through the chest. IV contrast: None. Reconstructions: Coronal and sagittal. In accordance with CT protocol optimization, one or more of the following dose reduction techniques were utilized for this exam: automated exposure control, adjustment of mA and/or KV based on patient size, or use of iterative reconstructive technique. FINDINGS: Lungs/Pleura: There is a 7 mm solid pulmonary nodule in the lateral aspect of the right upper lobe (series 4 image 24). There is a solid 3 mm pulmonary nodule in the anterior aspect of the left upper lobe (series 4 image 22). No bronchial thickening, consolidation, or edema. Pulmonary vasculature is normal. No pericardial or pleural effusion. No pneumothorax. Mediastinum: There is mild cardiomegaly. No adenopathy or masses. The great vessels are normal in caliber. There is mild atherosclerotic calcification of the aortic arch. The thyroid is unremarkable. Bones: No acute osseous abnormality or bone lesion. There are mild degenerative disk changes of the thoracic spine. There are multilevel smooth anterior bridging osteophytes of the thoracic spine compatible with diffuse idiopathic skeletal hyperostosis. 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 Visualized Abdomen: Unremarkable. Other: None. IMPRESSION: 1. Right upper lobe solid pulmonary nodule measuring 7 mm and left upper lobe solid pulmonary nodule measuring 3 mm. Recommend follow-up noncontrast CT chest in 6-12 months per Fleischner criteria. 2. Mild cardiomegaly. 3. Unremarkable CT appearance of the thyroid. Recommend follow-up of the described nodule(s) according to the following guidelines: Fleischner Society Recommendations 2017 MacMahon et al. Radiology 2017 Solid Nodules-Low Risk Patients: <6 mm (single or multiple) - No routine follow-up* 6-8 mm (single) -CT at 6-12 months, then consider CT at 18-24 months 6-8mm (multiple) -CT at 3-6 months, then consider at CT 18-24 months >8 mm (single) -Consider CT, PET/CT, or tissue sampling at 3 months >8 mm (multiple) -CT at 3-6 months, then consider CT at 18-24 months Solid Nodules-High Risk Patients: <6 mm (single or multiple) -Optional CT at 12 months* 6-8 mm (single) -CT at 6-12 months, then CT at 18-24 months 6-8mm (multiple) -CT at 3-6 months, then CT at 18-24 months >8 mm (single) -Consider CT, PET/CT, or tissue sampling at 3 months >8 mm (multiple) -CT at 3-6 months, then at 18-24 months *Nodules < 6mm do not require routine follow-up, but suspicious nodule morphology, upper lobe location, or both may warrant 12 month follow-up LE
== END 2018-07-19 09:20 | disposition home or self-care (01) ==
LOC: DI 09:19
PROVIDERS: ATTEND Internal Medicine
DX: E04.2 Nontoxic multinodular goiter (principal); R91.8 Other nonspecific abnormal finding of lung field; I51.7 Cardiomegaly
CPT/HCPCS: 71260; 76536; Q9967

== ENCOUNTER 2018-08-26 13:31 | Outpatient (CLI) | payer MEDICARE ==
[2018-08-26] MEDS ORDERED: BUFFERED LIDOCAINE 10 ML SYRINGE ONE (13:56)
[2018-08-26] MEDS ORDERED: BUFFERED LIDOCAINE 10 ML SYRINGE IU ONE (15:21)
--- NOTE | 2018-08-27 09:24 | Ultrasound Report ---
Reason: THYROID NODULE Procedure Date: 08/26/2018 Accession Number: [id number] / [id number] Procedure: US - FNA Bx w/US Gnd les CPT Code: 63279 FULL RESULT: EXAM: Thyroid Fine Needle Aspiration EXAM DATE: 08/26/2018 03:15 PM. CLINICAL HISTORY: Thyroid nodule. COMPARISON: None. TECHNIQUE: The risks, benefits, and alternatives of the procedure were discussed with the patient. All questions were answered. Written and verbal consent were obtained. A site was marked over the left thyroid nodule in question under live sonographic evaluation, then subsequently prepped and draped in a sterile manner. Local anesthesia was performed with 1% lidocaine. 4 22 gauge fine-needle aspirates/passes were performed through the left thyroid nodule in question, then passed to the assigner for preparation. Estimated blood loss was 0 mL. Sonographic images demonstrate needle placement within the left thyroid nodule in question. Fluoroscopy Time: 0 minutes Number of Images: 18 FINDINGS IMPRESSION: Left thyroid nodule FNA. RADIA
== END 2018-08-26 13:32 | disposition home or self-care (01) ==
LOC: DI 13:31
PROVIDERS: ATTEND Internal Medicine
DX: C73 Malignant neoplasm of thyroid gland (principal)
CPT/HCPCS: 10005

== ENCOUNTER 2018-09-23 09:02 | Day surgery (SDC) | payer MEDICARE ==
[~2018-09-23 09:02] MED LIST: BUPIVACAINE 0.5% PF 30 ML VIAL ONE
[2018-09-23] MEDS ORDERED: ceFAZolin 2 GM/50 ML 2 GM/50 ML BAG IV ONE (09:06)
[2018-09-23] MEDS ORDERED: LACTATED RINGERS 1,000 ML IV ONE ×2 (09:38→13:07)
--- NOTE | 2018-09-23 09:39 | ANESTHESIA ---
Pre-Anesthesia VS, & Labs - Diagnosis papillary thyroid cancer - Procedure Total thyroidectomy Vital Signs: Temp Pulse Resp BP Pulse Ox 36.2 C L 104 H 20 133/91 H 99 09/23/18 09:12 09/23/18 09:12 09/23/18 09:12 09/23/18 09:12 09/23/18 09:12 133/91, 104, 99%, 20, 36.2 Height 5 ft 8 in Weight (kg) 77.8 kg Body Mass Index 27.6 - NPO >8 hours Home Medications and Allergies Home Medications: Ambulatory Orders Aspirin [Adult Aspirin] 81 mg PO DAILY 09/08/18 Atorvastatin Calcium 40 mg PO QPM 09/08/18 Digoxin [Lanoxin] 125 mcg PO DAILY 09/08/18 Metoprolol Tartrate 100 mg PO DAILY 09/08/18 Ranitidine HCl [Acid Control] 300 mg PO DAILY 09/08/18 Aspirin [Adult Aspirin] 81 mg PO DAILY 09/08/18 Atorvastatin Calcium 40 mg PO QPM 09/08/18 Digoxin [Lanoxin] 125 mcg PO DAILY 09/08/18 Metoprolol Tartrate 100 mg PO DAILY 09/08/18 Ranitidine HCl [Acid Control] 300 mg PO DAILY 09/08/18 Allergies/Adverse Reactions: Allergies Allergy/AdvReac Type Severity Reaction Status Date / Time No Known Drug Allergies Allergy Verified 06/18/18 13:46 Anes History & Medical History - Anesthetic History Anesthesia Complications: reports: No previous complications - Medical History Cardiovascular: reports: High cholesterol, Atrial fibrillation, Other Pulmonary: reports: None Gastrointestinal: reports: GERD, Other Urinary: reports: None Neuro: reports: TIA Musculoskeletal: reports: None Endocrine/Autoimmune: reports: None Blood Disorders: reports: None Skin: reports: None Smoking Status: Former smoker - Surgical History General: Bowel surgery Eyes Ears Nose Throat (EENT): Cataracts Exam General: Alert Dental: Poor dentition Plan Anesthesia Type: General Consent for Procedure(s) Verified and Reviewed: Yes Code Status: Attempt Resuscitation ASA classification: 2-Mild systemic disease Is this case an emergency?: No
[2018-09-23] MEDS: DIGOXIN 125 MCG TABLET PO STA ×2 (10:04→13:48)
[2018-09-23] MEDS ORDERED: MIDAZOLAM 2 MG/2 ML VIAL IVP ONE (10:30)
[2018-09-23] MEDS ORDERED: fentaNYL 100 MCG/2 ML VIAL IVP ONE (10:30)
[2018-09-23] MEDS ORDERED: ONDANSETRON 4 MG/2 ML VIAL IVP ONE (10:30)
[2018-09-23] MEDS ORDERED: ROCURONIUM 50 MG/5 ML VIAL IVP ONE (10:30)
[2018-09-23] MEDS ORDERED: LIDOCAINE-MPF 2% 5 ML VIAL IM ONE (10:30)
[2018-09-23] MEDS ORDERED: GLYCOPYRROLATE 1 MG/5 ML VIAL IVP ONE (10:30)
[2018-09-23] MEDS ORDERED: DEXAMETHASONE 4 MG/ML VIAL IVP ONE (10:30)
[2018-09-23] MEDS ORDERED: NEOSTIGMINE 1 MG/1 ML 10 ML MDV IVP ONE (10:30)
[2018-09-23] MEDS ORDERED: PROPOFOL 200 MG/20 ML VIAL IVP ONE (10:30)
[2018-09-23] MEDS ORDERED: ACETAMINOPHEN 1,000 MG/100 ML 100 ML IV ONE (10:30)
[2018-09-23] MEDS ORDERED: HYDROcod/ACETAM 5/325 MG TABLET PO PRN (12:40)
[2018-09-23] MEDS ORDERED: ONDANSETRON 4 MG/2 ML VIAL IVP PRN (12:40)
[2018-09-23] MEDS ORDERED: fentaNYL 100 MCG/2 ML VIAL ONE (12:52)
--- NOTE | 2018-09-23 12:53 | OPERATIVE REPORT ---
Operative Report - General Procedure Date: 09/23/18 Planned Procedure: Total thyroidectomy Pre-Op Diagnosis: Papillary thyroid cancer Procedure Performed: Total thyroidectomy Post Op Diagnosis: Same - Procedure Note Primary Surgeon: Mani Guerrero MD Secondary Surgeon: Thierno Shin MD Anesthesia Provider: Maryann Mathis CRNA Anesthesia Technique: General ET tube IV Fluids (mL): 700 Estimated Blood Loss (mL): 10 Drain/Tube Type: Ottoniel drain (15 Vietnamese into both areas of the neck (1 drain)) Complications: None. - Other Other Information/Narrative: OPERATIVE DESCRIPTION/REPORT: After verbal and written informed consent was obtained detailing the risks of infection, bleeding requiring transfusion with its risks, nerve injury, and , and after I met with the patient confirming the surgery, the patient was brought to the operative suite and placed supine on the operating table. Great care was taken to avoid pressure points to prevent pressure necrosis or nerve injury. Monitoring devices were applied along with TEDs and pneumatic compressive stockings (to prevent DVT). The patient received preoperative antibiotics for surgical prophylaxis. Maryann Mathis CRNA sedated and anesthetized the patient for the entire procedure. The patient was prepped and draped in the usual sterile manner. With the patient draped my initials were clearly visible. A "time in" then confirmed that the patient was identified with 3 identifiers (name, date and medical record number), the history and physical was in the chart, the signed consent confirming the procedure was in the chart, the patient was in the correct position, the aforementioned prophylactic measures were in place or given, we had the correct personnel and equipment to complete the procedure and that anesthesia, surgery and nursing were given an opportunity to express any concerns. With the agreement of everyone in the room, we proceeded with the operation. A standard curvilinear neck incision was made and dissection was carried down past the platysma muscle. Superior and inferior flaps of skin were then raised using gentle traction and Bovie elctrocautery. The strap muscles were then retracted laterally without having to cut them. The patient had a very thin neck helping us to perform this operation. The left side was addressed first. The LEFT thyroid was normal in shape with the exception of a hard mass in the mid to upper pole. No lymphadenopathy was noted in either side of the neck. The LEFT thyroid was then carefully mobilized. The middle thyroidal vein was ligated proximately and distally and transected to aid in the mobilization. Examination posterior to the LEFT lower pole of the thyroid revealed the LEFT lower parathyroid. The parathyroid left in place. The LEFT superior parathyroid was not seen with great certainty. The superior pole of the thyroid was mobilized and transected with the application of the Ligasure. Examination along the trachea revealed the laryngeal nerve, which was noted, to be intact and it was carefully protected. The LEFT thyroid was then lifted from the trachea using Bovie electrocautery. The isthmus was similarly lifted. Attention was then turned to the RIGHT side. The dissection proceeded in exactly the same way with the only difference being that the RIGHT thyroid was again normal in size but without any mass. This aided the dissection. The entire thyroid was placed in formalin and sent for permanent pathologic evaluation without orientation. I did not think that orienting the specimen was going to add any significantpertinent information. Both sides of the neck were packed with gauze and time was allowed to pass in order to see if we could obtain hemostasis. There was some continued oozing along the tracheal groove and I did not wish to apply any thermal energy for fear of causing any nerve damage. As a result, a piece of Surgicel was obtained and applied on both sides. A 15 Vietnamese Ottoniel drain was placed through a separate stab incision and secured to the skin using a 5-0 nylon suture that was Joe sandaled about the drain. The drain was formed to go into both cavities that had been vacated by the thyroid. The strap muscles were reapproximated at the midline using 3-0 Vicryl in a running manner. The platysma was approximated using a 4-0 Vicryl in an interrupted manner. The skin was approximated with interrupted 5-0 Nylon mattress sutures, and after the skin was prepped with benzoin, steristrips were placed between the sutures. The drain was placed to grenade suction. These sutures will be removed tomorrow morning. At this point a time out was performed that confirmed that all the counts were correct, the procedure that was performed, the blood loss, the IV fluids administered, and the patients condition. Having tolerated the procedure well, the patient was subsequently extubated and taken to recovery room in good and stable condition. The vocal cords were noted to be midline and moving at the end of the case. Please note that Dr. Shin was present for the entire case and was necessary to have him present and as it would have been impossible to show what needed to be cut or transected and transect them all by myself. In other words, we acted as a team, one showing the other what needed to be cut/transected/divided/dissected. Dragon disclaimer: This document was created in part using voice recognition technology. Because of the inherent limitations of the system ([employer] Dragon Dictate user manual states that the licensee understands that speech recognition is a statistical process and that recognition errors are inherent in the process), occasional same sounding word substitutions and grammatical errors do occur and persist despite proofreading. Please read this document for context.
[2018-09-23] MEDS: HYDROmorphone 0.5 MG/0.5 ML SYRINGE IVP PRN ×2 (12:55→13:04)
[2018-09-23] MEDS ORDERED: METOPROLOL TARTRATE 50 MG TABLET PO SCH (13:00)
[2018-09-23 13:15] LABS: ALBUMIN/GLOBULIN RATIO 1.8 (1.0-2.2); BILIRUBIN,TOTAL 1.1 mg/dL (0.2-1.0); CALCIUM 8.5 mg/dL (8.5-10.3); CREATININE 0.9 mg/dL (0.6-1.2); PHOSPHORUS 3.1 mg/dL (2.5-4.6); TOTAL PROTEIN 6.2 g/dL (6.7-8.2)
[2018-09-23] MEDS ORDERED: ATORVASTATIN 40 MG TABLET PO SCH (21:00)
[2018-09-24] MEDS ORDERED: SODIUM CHLORIDE FLUSH 0.9% 10 ML SYRINGE ONE (03:52)
[2018-09-24 06:07] LABS: ALBUMIN 3.6 g/dL (3.2-5.5); ALBUMIN/GLOBULIN RATIO 1.6 (1.0-2.2); BILIRUBIN,TOTAL 1.4 mg/dL (0.2-1.0); CALCIUM 8.3 mg/dL (8.5-10.3); CREATININE 1.1 mg/dL (0.6-1.2); PHOSPHORUS 3.5 mg/dL (2.5-4.6); TOTAL PROTEIN 5.9 g/dL (6.7-8.2)
[2018-09-24 07:46] VITALS: BP 108/65
--- NOTE | 2018-09-24 08:45 | PROVIDER PROGRESS NOTE ---
Subjective - General Procedure Date: 09/23/18 Post Op Days: 1 Procedure Performed: Total thyroidectomy - Review of Systems Wound/Incisions: positive: Healing well (Stitches and drain removed patient tolerated well.) General: positive: No symptoms HEENT: positive: No symptoms Pulmonary: positive: No symptoms Cardiovascular: positive: No symptoms Gastrointestinal: positive: No symptoms Genitourinary: positive: No symptoms Musculoskeletal: positive: No symptoms Skin: positive: No symptoms Psychiatric: positive: No symptoms Objective - Patient Data Reviewed Vital Signs: Yes Vital Signs: Vital Signs x48h Temp Pulse Pulse Resp BP BP Pulse Ox 09/24/18 07:45 37.4 C 87 18 108/65 96 09/24/18 05:28 36.9 C 80 18 102/50 L 96 09/24/18 01:28 37.0 C 91 18 117/45 L 95 Weight: Weight 09/22/18 09/23/18 09/24/18 23:59 23:59 23:59 Weight (kg) 77.8 kg Intake & Output: Intake and Output Totals x24h 09/22/18 09/23/18 09/24/18 23:59 23:59 23:59 Intake Total 850 Output Total 10 825 Balance 840 -825 - Lab Results Lab Results: 09/24/18 05:24 Other Lab Results: Lab Results x24hrs 09/24/18 09/23/18 Range/Units 05:24 12:56 Sodium 138 140 (135-145) mmol/L Potassium 4.2 4.2 (3.5-5.0) mmol/L Chloride 104 107 (101-111) mmol/L Carbon Dioxide 25 25 (21-32) mmol/L Anion Gap 9.0 8.0 (6-13) BUN 21 H 23 H (6-20) mg/dL Creatinine 1.1 0.9 (0.6-1.2) mg/dL Estimated GFR (MDRD) 64 L 80 L (>89) Glucose 192 H 187 H (70-100) mg/dL Calcium 8.3 L 8.5 (8.5-10.3) mg/dL Phosphorus 3.5 3.1 (2.5-4.6) mg/dL Total Bilirubin 1.4 H 1.1 H (0.2-1.0) mg/dL AST 26 20 (10-42) IU/L ALT 23 26 (10-60) IU/L Alkaline Phosphatase 54 61 (42-121) IU/L Total Protein 5.9 L 6.2 L (6.7-8.2) g/dL Albumin 3.6 4.0 (3.2-5.5) g/dL Globulin 2.3 2.2 (2.1-4.2) g/dL Albumin/Globulin Ratio 1.6 1.8 (1.0-2.2) - Current Medications Current Medications: Current Medications Generic Name Dose Route Start Last Admin Trade Name Freq PRN Reason Stop Dose Admin Hydrocodone Bitart/Acetaminophen 1 tab 09/23/18 12:40 09/23/18 21:05 [place] 5/325 PO 1 tab Q4HR PRN Administration PAIN Atorvastatin Calcium 40 mg 09/23/18 21:00 09/23/18 21:05 Lipitor PO 40 mg QPM GAYLE Administration Hydromorphone HCl 0.5 mg 09/23/18 12:40 09/23/18 13:04 Dilaudid Inj Syringe IVP 0.1 mg Q30M PRN Administration Breakthrough Pain Metoprolol Tartrate 100 mg 09/23/18 13:00 09/23/18 14:01 Lopressor PO 100 mg DAILY GAYLE Administration Ranitidine HCl 300 mg 09/23/18 13:00 09/23/18 14:01 Zantac PO 300 mg DAILY GAYLE Administration - Physical Exam Wound/Incisions: positive: Healing well, Other (Again stitches and drain removed. PAtient tolerated very well. States he has NO pain.) General Appearance: positive: No acute distress Eyes Bilateral: positive: No lid inflammation, Conjunctivae nml, No scleral icterus Neck: positive: Trachea midline, Stiff neck (Mildly from surgery.), Other (Wound clean. No erythema. No ecchymosis. Voice normal. Phonating normally.) Respiratory: positive: Chest non-tender, No respiratory distress, Breath sounds nml Cardiovascular: positive: Regular rate & rhythm Rectal: positive: Non-tender Skin: positive: Color nml ABX Reporting Has patient been on IV antibiotics over the past 48 hours?: Yes Impression/Plan - Problem List Problem List: D1 s/p total thyroidectomy for papillary cancer. Patient has done well. Patient was kept overnight to ensure no problems with hypocalcemia - there were none. Patient was kept overnight to ensure there was no problem with neck swelling or bleeding - there was none. Pathology pending. See patient in 1 week for postoperative visit to check wound and go over pathology which should be back. Patient and son instructed to call with any surgical questions or concerns. Patient states that he does not need/want pain medications.
== END 2018-09-24 09:15 | disposition home or self-care (01) ==
LOC: SDS 09:02 → OBS 13:42 → SDS 09-24 09:15
PROVIDERS: ATTEND Surgery
PROC: 0GBJ0ZZ Excision of Thyroid Gland Isthmus, Open Approach (ICD-10-PCS; 2018-09-23)
PROC: 0GTK0ZZ Resection of Thyroid Gland, Open Approach (ICD-10-PCS; principal; 2018-09-23 10:00)
DX: C73 Malignant neoplasm of thyroid gland (principal); I48.91 Unspecified atrial fibrillation; K21.9 Gastro-esophageal reflux disease without esophagitis; D64.9 Anemia, unspecified; I69.919 Unspecified symptoms and signs involving cognitive functions following unspecified cerebrovascular disease; E78.00 Pure hypercholesterolemia, unspecified; Z79.82 Long term (current) use of aspirin; Z87.891 Personal history of nicotine dependence
CPT/HCPCS: 36415; 60240; 80053; 84100; A9270; J0131; J0690; J1170; J7120

== ENCOUNTER 2019-06-13 09:49 | Outpatient (CLI) | payer MEDICARE ==
--- NOTE | 2019-06-15 15:05 | Ultrasound Report ---
Reason: C73 THYROID CANCER Procedure Date: 06/13/2019 Accession Number: [id number] / [id number] Procedure: US - Head or Neck Soft Tissue CPT Code: Final Report FULL RESULT: EXAM: THYROID ULTRASOUND EXAM DATE: 06/13/2019 03:31 PM. CLINICAL HISTORY: C73 thyroid cancer. COMPARISON: HEAD OR NECK SOFT TISSUE 07/19/2018 11:52 AM. TECHNIQUE: Real time sonographic imaging of the thyroid was performed by the aquatic biologist. Multiple treasury representative static images were saved for review. FINDINGS: THYROID GLAND: The patient is status post thyroidectomy with no suspicious mass in the thyroid bed. LYMPH NODES: In the left neck the most prominent lymph node measures 1.8 x 0.4 x 0.8 cm and demonstrates a preserved fatty hilum with mildly prominent cortical thickness. Remaining left neck lymph nodes appear morphologically unremarkable. In the right neck the most prominent lymph node measures 1.1 x 0.6 x 0.9 cm and demonstrates questionable loss of architecture with capsular flow by color Doppler, suspicious. OTHER: None. IMPRESSION: No evidence of recurrent mass in the thyroidectomy bed. Morphologically abnormal lymph node in the right neck as described with suggestion of capsular flow. Borderline appearing left neck lymph node as described above. Recommend tissue sampling of the described right neck lymph node, this would likely have to be by fine-needle aspiration given location and size. RADIA
== END 2019-06-13 09:50 | disposition home or self-care (01) ==
LOC: DI 09:49
PROVIDERS: ATTEND Internal Medicine Endocrinology, Diabetes & Metabolism
DX: C73 Malignant neoplasm of thyroid gland (principal); I89.9 Noninfective disorder of lymphatic vessels and lymph nodes, unspecified
CPT/HCPCS: 76536

== ENCOUNTER 2020-10-12 21:05 | Inpatient (IN) | payer MEDICARE ==
--- OUTSIDE RECORDS SUMMARY | 2020-10-12 21:15 | EXTERNAL MEDICAL SUMMARY RPT | Continuity of Care Document ---
:1935 Demographics Phone Unavailable Preferred Language Unknown Marital Status Unknown [employer] Affiliation Unknown Race Unknown Ethnic Group Unknown Author Organization [facility] Address [address] [phone] Phone Social History date description facility [phone]
[2020-10-12 21:41] LABS: BASOPHILS % (AUTO) 0.2 %; EOSINOPHILS % (AUTO) 0.2 %; HCT - HEMATOCRIT 40.8 % (42.0-52.0); HGB - HEMOGLOBIN 14.5 g/dL (14.0-18.0); LYMPHOCYTES # (AUTO) 3.3 10^3/uL (1.5-3.5); LYMPHOCYTES % (AUTO) 22.8 %; MEAN CORPUSCULAR HEMOGLOBIN 31.7 pg (27.0-31.0); MEAN CORPUSCULAR HGB CONC 35.5 g/dL (32.0-36.0); MEAN CORPUSCULAR VOLUME 89.1 fL (80.0-94.0); MEAN PLATELET VOLUME 10.2 fL (7.4-11.4); MONOCYTES # (AUTO) 1.3 10^3/uL (0.0-1.0); MONOCYTES % (AUTO) 9.3 %; NEUTROPHILS # (AUTO) 9.6 10^3/uL (1.5-6.6); NEUTROPHILS % (AUTO) 67.2 %; PLT - PLATELET COUNT 239 10^3/uL (130-450); RED BLOOD COUNT 4.58 10^6/uL (4.70-6.10); WHITE BLOOD COUNT 14.3 x10^3/uL (4.8-10.8)
[2020-10-12] MEDS ORDERED: METOPROLOL 5 MG/5 ML VIAL IVP STA (21:42)
[2020-10-12 21:58] LABS: ALBUMIN 4.1 g/dL (3.2-5.5); ALBUMIN/GLOBULIN RATIO 1.2 (1.0-2.2); BILIRUBIN,TOTAL 1.8 mg/dL (0.2-1.0); CALCIUM 9.1 mg/dL (8.5-10.3); CREATININE 1.3 mg/dL (0.6-1.2); POTASSIUM 3.6 mmol/L (3.5-5.0); TOTAL PROTEIN 7.4 g/dL (6.7-8.2)
[2020-10-12] MEDS ORDERED: METOPROLOL TARTRATE 50 MG TABLET PO STA (22:03)
[2020-10-12] MEDS ORDERED: IOPAMIDOL-300 100 ML VIAL ONE (22:09)
[2020-10-12] MEDS ORDERED: ASPIRIN 325 MG TABLET PO STA ×2 (22:23→22:24)
[2020-10-12] MEDS ORDERED: MORPHINE 2 MG/ML CARPUJECT IVP STA (22:23)
[2020-10-12] MEDS ORDERED: ONDANSETRON 4 MG/2 ML VIAL IVP STA (22:24)
[2020-10-12 22:31] LABS: VBG BASE EXCESS 1.6 mmol/L (-2 - +2); VBG HCO3 24.6 mmol/L (23-28); VBG OXYGEN SATURATION 72.7 % (60-80); VBG PH 7.477 (7.31-7.41); VBG PO2 35.1 mmHg (25-47); VBG TOTAL CO2 25.6 mmol/L (24-29)
[2020-10-12] MEDS ORDERED: IOPAMIDOL-300 100 ML VIAL IVP ONE (23:00)
[2020-10-12] MEDS ORDERED: PIPERACILLIN/TAZOBACTAM 3.375 GM in SODIUM CHLORIDE 0.9% MINIBAG 100 ML IV STA (23:12)
--- NOTE | 2020-10-13 00:04 | ED Physician Documentation ---
PD HPI ABD PAIN - Stated complaint Stated Complaint: SOA/SORE THROAT/CP/FEVER - Chief complaint Chief Complaint: Cardiac - History obtained from History obtained from: Patient, Family (son) - Additional information Additional information: 85-year-old man with past medical history of thyroid cancer, A. fib not on anticoagulation, stroke in the past, presents with shortness breath, chest pain, fever and abdominal pain progressive over the past couple days associated with fever. Patient states that he had severe sudden onset worsening pain around mid afternoon in the right upper quadrant and epigastrium that has progressively worsened, radiating to the back, sharp sensation. Review of Systems Ten Systems: 10 systems reviewed and negative Constitutional: reports: Fever, Chills GI: reports: Abdominal Pain, Nausea, Vomiting : denies: Dysuria PD PAST MEDICAL HISTORY - Past Medical History Past Medical History: Yes Cardiovascular: High cholesterol, Atrial fibrillation, Other Respiratory: None Neuro: TIA Endocrine/Autoimmune: None GI: GERD, Other : None HEENT: Chronic hearing loss, Other Psych: None, Anxiety Musculoskeletal: None Derm: None - Past Surgical History Past Surgical History: Yes General: Bowel surgery HEENT: Cataracts - Present Medications Home Medications: Ambulatory Orders Medication Instructions Recorded Confirmed Aspirin [Adult Aspirin] 81 mg PO DAILY 09/08/18 09/23/18 Atorvastatin Calcium 40 mg PO QPM 09/08/18 09/23/18 Digoxin [Lanoxin] 125 mcg PO DAILY 09/08/18 09/23/18 Metoprolol Tartrate 100 mg PO DAILY 09/08/18 09/23/18 raNITIdine HCl [Acid Control] 300 mg PO DAILY 09/08/18 09/23/18 - Allergies Allergies/Adverse Reactions: Allergies Allergy/AdvReac Type Severity Reaction Status Date / Time No Known Drug Allergies Allergy Verified 10/12/20 21:15 - Social History Does the pt smoke?: No Smoking Status: Never smoker Does the pt drink ETOH?: Yes Does the pt have substance abuse?: No - Immunizations Immunizations are current?: Yes - POLST Patient has POLST: No POLST Status: Full Code PD ED PE NORMAL - Vitals Vital signs reviewed: Yes - General General: Alert and oriented X 3, No acute distress, Well developed/nourished - HEENT HEENT: Atraumatic, PERRL, EOMI - Neck Neck: Supple, no meningeal sign - Cardiac Cardiac: Other (tachycardic rate, irregular rhythm) - Respiratory Respiratory: No respiratory distress - Abdomen Abdomen: Other (guarding and rebound on exam in BL UQ) - Male Male : Deferred - Rectal Rectal: Deferred - Derm Derm: Normal color - Extremities Extremities: No deformity - Neuro Neuro: Alert and oriented X 3 - Psych Psych: Normal mood, Normal affect Results - Vitals Vitals: Vital Signs - 24 hr 10/12/20 10/12/20 10/12/20 21:15 21:49 21:54 Temperature 36.9 C 36.9 C 36.9 C Heart Rate 160 H 162 H 117 H Respiratory 19 21 19 Rate Blood Pressure 135/82 H 125/84 H 112/84 H O2 Saturation 100 99 100 10/12/20 10/12/20 10/12/20 22:02 22:23 22:30 Temperature 37.7 C 37.7 C 37.6 C Heart Rate 116 H 123 H 122 H Respiratory 19 19 18 Rate Blood Pressure 132/85 H 145/87 H 135/82 H O2 Saturation 100 100 97 10/12/20 10/12/20 10/13/20 23:00 23:30 00:00 Temperature 37.6 C 37.6 C 37.6 C Heart Rate 126 H 121 H 128 H Respiratory 18 19 20 Rate Blood Pressure 135/61 H 129/76 131/76 H O2 Saturation 96 98 100 Oxygen O2 Source Room air - Labs Labs: Laboratory Tests 10/12/20 10/12/20 10/12/20 21:29 21:29 21:29 WBC 14.3 H RBC 4.58 L Hgb 14.5 Hct 40.8 L MCV 89.1 MCH 31.7 H MCHC 35.5 RDW 15.0 Plt Count 239 MPV 10.2 Neut # (Auto) 9.6 H Lymph # (Auto) 3.3 [place] # (Auto) 1.3 H Eos # (Auto) 0.0 Baso # (Auto) 0.0 Absolute Nucleated RBC 0.00 Nucleated RBC % 0.0 VBG pH VBG pCO2 VBG pO2 VBG HCO3 VBG Total CO2 VBG O2 Saturation VBG Base Excess Sodium 137 Potassium 3.6 Chloride 97 L Carbon Dioxide 25 Anion Gap 15.0 H BUN 28 H Creatinine 1.3 H Estimated GFR (MDRD) 52 L Glucose 219 H Lactic Acid Calcium 9.1 Total Bilirubin 1.8 H AST 19 ALT 15 Alkaline Phosphatase 76 Troponin I High Sens 10.5 Total Protein 7.4 Albumin 4.1 Globulin 3.3 Albumin/Globulin Ratio 1.2 Lipase 23 Nasal Adenovirus (PCR) Nasal B. parapertussis DNA (PCR) Nasal Coronavir 229E PCR Nasal Coronavir HKU1 PCR Nasal Coronavir NL63 PCR Nasal Coronavir OC43 PCR Nasal Enterovir/Rhinovir PCR Nasal Influenza B PCR Nasal Influenza A PCR Nasal Parainfluen 1 PCR Nasal Parainfluen 2 PCR Nasal Parainfluen 3 PCR Nasal Parainfluen 4 PCR Nasal RSV (PCR) Nasal B.pertussis DNA PCR Nasal C.pneumoniae (PCR) Juan Human Metapneumo PCR Nasal M.pneumoniae (PCR) Nasal SARS-CoV-2 (PCR) 10/12/20 10/12/20 10/12/20 22:24 22:24 23:11 WBC RBC Hgb Hct MCV MCH MCHC RDW Plt Count MPV Neut # (Auto) Lymph # (Auto) [place] # (Auto) Eos # (Auto) Baso # (Auto) Absolute Nucleated RBC Nucleated RBC % VBG pH 7.477 H VBG pCO2 34.0 L VBG pO2 35.1 VBG HCO3 24.6 VBG Total CO2 25.6 VBG O2 Saturation 72.7 VBG Base Excess 1.6 Sodium Potassium Chloride Carbon Dioxide Anion Gap BUN Creatinine Estimated GFR (MDRD) Glucose Lactic Acid 3.3 H* Calcium Total Bilirubin AST ALT Alkaline Phosphatase Troponin I High Sens Total Protein Albumin Globulin Albumin/Globulin Ratio Lipase Nasal Adenovirus (PCR) NOT DETECTED Nasal B. parapertussis DNA (PCR) NOT DETECTED Nasal Coronavir 229E PCR NOT DETECTED Nasal Coronavir HKU1 PCR NOT DETECTED Nasal Coronavir NL63 PCR NOT DETECTED Nasal Coronavir OC43 PCR NOT DETECTED Nasal Enterovir/Rhinovir PCR NOT DETECTED Nasal Influenza B PCR NOT DETECTED Nasal Influenza A PCR NOT DETECTED Nasal Parainfluen 1 PCR NOT DETECTED Nasal Parainfluen 2 PCR NOT DETECTED Nasal Parainfluen 3 PCR NOT DETECTED Nasal Parainfluen 4 PCR NOT DETECTED Nasal RSV (PCR) NOT DETECTED Nasal B.pertussis DNA PCR NOT DETECTED Nasal C.pneumoniae (PCR) NOT DETECTED Juan Human Metapneumo PCR NOT DETECTED Nasal M.pneumoniae (PCR) NOT DETECTED Nasal SARS-CoV-2 (PCR) NOT DETECTED 10/12/20 23:30 WBC RBC Hgb Hct MCV MCH MCHC RDW Plt Count MPV Neut # (Auto) Lymph # (Auto) [place] # (Auto) Eos # (Auto) Baso # (Auto) Absolute Nucleated RBC Nucleated RBC % VBG pH VBG pCO2 VBG pO2 VBG HCO3 VBG Total CO2 VBG O2 Saturation VBG Base Excess Sodium Potassium Chloride Carbon Dioxide Anion Gap BUN Creatinine Estimated GFR (MDRD) Glucose Lactic Acid 3.1 H* Calcium Total Bilirubin AST ALT Alkaline Phosphatase Troponin I High Sens Total Protein Albumin Globulin Albumin/Globulin Ratio Lipase Nasal Adenovirus (PCR) Nasal B. parapertussis DNA (PCR) Nasal Coronavir 229E PCR Nasal Coronavir HKU1 PCR Nasal Coronavir NL63 PCR Nasal Coronavir OC43 PCR Nasal Enterovir/Rhinovir PCR Nasal Influenza B PCR Nasal Influenza A PCR Nasal Parainfluen 1 PCR Nasal Parainfluen 2 PCR Nasal Parainfluen 3 PCR Nasal Parainfluen 4 PCR Nasal RSV (PCR) Nasal B.pertussis DNA PCR Nasal C.pneumoniae (PCR) Juan Human Metapneumo PCR Nasal M.pneumoniae (PCR) Nasal SARS-CoV-2 (PCR) PD MEDICAL DECISION MAKING - ED course ED course: Patient endorsed to Dr. Pereira. Withheld 30cc/kg bolus fluids given severe chf. Departure - Departure Disposition: 66 [facility] DC/Xfer Clinical Impression: Perforated duodenal ulcer, Sepsis, Nausea and vomiting
[2020-10-13 00:06] LABS: B. PARAPERTUSSIS- RESP PCR PAN NOT DETECTED; B. PERTUSSIS- RESP PCR PANEL NOT DETECTED; C. PNEUMONIAE- RESP PCR PANEL NOT DETECTED; CORONAVIRUS 229E-RESP PCR NOT DETECTED; CORONAVIRUS HKU1-RESP PCR NOT DETECTED; CORONAVIRUS NL63-RESP PCR NOT DETECTED; CORONAVIRUS OC43-RESP PCR NOT DETECTED; HUMAN METAPNEUMOVIRUS NOT DETECTED; INFLUENZA A- RESP PCR PANEL NOT DETECTED; INFLUENZA B - RESP PCR PANEL NOT DETECTED; M. PNEUMONIAE- RESP PCR PANEL NOT DETECTED; PARAINFLUENZA VIRUS 1 NOT DETECTED; PARAINFLUENZA VIRUS 2 NOT DETECTED; PARAINFLUENZA VIRUS 3 NOT DETECTED; PARAINFLUENZA VIRUS 4 NOT DETECTED; RHINOVIRUS/ENTEROVIRUS NOT DETECTED; RSV- RESP PCR PANEL NOT DETECTED; SARS-CoV-2 -RESP PCR PANEL NOT DETECTED
[2020-10-13] MEDS ORDERED: SODIUM CHLORIDE 0.9% 1,000 ML IV STA (00:38)
[2020-10-13] MEDS ORDERED: ONDANSETRON 4 MG/2 ML VIAL IVP PRN (00:52)
[2020-10-13] MEDS ORDERED: ONDANSETRON ODT 4 MG TABLET TL PRN (00:52)
[2020-10-13] MEDS ORDERED: DIGOXIN 125 MCG TABLET PO STA (00:58)
[2020-10-13] MEDS ORDERED: ATORVASTATIN 40 MG TABLET PO STA (00:59)
--- NOTE | 2020-10-13 01:05 | HISTORY & PHYSICAL EXAMINATION ---
Chief Complaint - Chief Complaint Chief Complaint: abdominal pain 2 to 3 days History of Present Illness - Admitted From Admitted From:: ed - History Obtained From Records Reviewed: yes History obtained from: pt Exam Limitations: none - History of Present Illness HPI Comment/Other: abdominal pain x 2 to 3 days . feeling better now History - Past Medical History Cardiovascular: reports: High cholesterol, Atrial fibrillation, Other Respiratory: reports: None Neuro: reports: TIA Endocrine/Autoimmune: reports: None GI: reports: GERD, Other : reports: None HEENT: reports: Chronic hearing loss, Other Psych: reports: None, Anxiety Musculoskeletal: reports: None Derm: reports: None MRSA Hx?: No - Past Surgical History General: reports: Bowel surgery HEENT: reports: Cataracts - Family & Social History Family History: Mother: , Father: - Substance History Use: Uses substance without health or social issues: NONE - POLST Patient has POLST: No POLST Status: Full Code Meds/Allgy - Home Medications Home Medications: Ambulatory Orders Medication Instructions Recorded Confirmed Aspirin [Adult Aspirin] 81 mg PO DAILY 09/08/18 09/23/18 Atorvastatin Calcium 40 mg PO QPM 09/08/18 09/23/18 Digoxin [Lanoxin] 125 mcg PO DAILY 09/08/18 09/23/18 Metoprolol Tartrate 100 mg PO DAILY 09/08/18 09/23/18 raNITIdine HCl [Acid Control] 300 mg PO DAILY 09/08/18 09/23/18 - Allergies Allergies/Adverse Reactions: Allergies Allergy/AdvReac Type Severity Reaction Status Date / Time No Known Drug Allergies Allergy Verified 10/12/20 21:15 Review of Systems - Constitutional Constitutional: reports: Fatigue (10 pt ros as above otherwise unremarkable) Exam - Vital Signs Reviewed Vital Signs: Yes Vital Signs: Vital Signs x48h Temp Pulse Resp BP Pulse Ox 10/13/20 00:30 37.4 C 102 H 17 99/58 L 100 10/13/20 00:00 37.6 C 128 H 20 131/76 H 100 10/12/20 23:30 37.6 C 121 H 19 129/76 98 10/12/20 23:00 37.6 C 126 H 18 135/61 H 96 10/12/20 22:30 37.6 C 122 H 18 135/82 H 97 10/12/20 22:23 37.7 C 123 H 19 145/87 H 100 10/12/20 22:02 37.7 C 116 H 19 132/85 H 100 10/12/20 21:54 36.9 C 117 H 19 112/84 H 100 10/12/20 21:49 36.9 C 162 H 21 125/84 H 99 10/12/20 21:15 36.9 C 160 H 19 135/82 H 100 - Physical Exam General Appearance: positive: No acute distress, Alert Eyes Bilateral: positive: Normal inspection, PERRL, EOMI ENT: positive: No signs of dehydration Neck: positive: No JVD, Trachea midline Respiratory: positive: No respiratory distress Cardiovascular: positive: Irregularly irregular Abdomen: positive: Other (mild tenderness and distension) Neurologic/Psychiatric: positive: Oriented x3 Conclusion/Plan - Problem List (1) Perforated duodenal ulcer Conclusion/Plan: no significant free fluid or air next to his stomach or duodenum. he states very clearly he feels better. he is very alert and does not appear ill. he likely perforated his ulcer 2 to 3 days ago and it has sealed. plan admit, close observation, abxs, ppi, etc - Lab Results Fish Bones: 10/12/20 21:29 10/12/20 21:29 - Diagnostic Imaging Results Diagnostic Imaging Results: positive: Final report reviewed, Read independently (free air likely from perforated duodenal ulcer few days ago which has since sealed off)
--- OUTSIDE RECORDS SUMMARY | 2020-10-13 01:12 | EXTERNAL MEDICAL SUMMARY RPT | Continuity of Care Document ---
:1935 Demographics Phone Unavailable Preferred Language Unknown Marital Status Unknown [employer] Affiliation Unknown Race Unknown Ethnic Group Unknown Author Organization [facility] Address [address] [phone] Phone Social History date description facility [id number]
[2020-10-13] MEDS: PANTOPRAZOLE 40 MG TABLET PO SCH ×3 (01:39→20:50)
[2020-10-13] MEDS: SODIUM CHLORIDE FLUSH 0.9% 10 ML SYRINGE IVP SCH ×4 (01:41→23:42)
[2020-10-13] MEDS: D5.45NS W/20 MEQ KCL 1,000 ML IV SCH ×3 (01:41→20:50)
[2020-10-13] MEDS ORDERED: AMPICILLIN/SULBACTAM 3 GM in SODIUM CHLORIDE 0.9% MINIBAG 100 ML IV SCH (02:00)
[2020-10-13 05:57] LABS: HGB - HEMOGLOBIN 13.3 g/dL (14.0-18.0); MEAN CORPUSCULAR HEMOGLOBIN 31.7 pg (27.0-31.0); MEAN CORPUSCULAR VOLUME 90.7 fL (80.0-94.0); MEAN PLATELET VOLUME 10.3 fL (7.4-11.4); RED BLOOD COUNT 4.19 10^6/uL (4.70-6.10); RED CELL DISTRIBUTION WIDTH 15.4 % (12.0-15.0); WHITE BLOOD COUNT 14.5 x10^3/uL (4.8-10.8)
--- NOTE | 2020-10-13 08:45 | XRAY Report ---
PROCEDURE: Chest 1 View X-Ray INDICATIONS: Chest pain TECHNIQUE: One view of the chest was acquired. COMPARISON: CT chest dated 07/19/2018 FINDINGS: Surgical changes and devices: None. Lungs and pleura: The left lung base and left costophrenic angle have been excluded from this evalua tion. Within these limitations, no pneumothorax or pleural effusion seen. There is minimal right basi lar atelectasis. No focal consolidations. Mediastinum: Mediastinal contours appear normal. Heart size is enlarged. Bones and chest wall: No suspicious bony lesions. Overlying soft tissues appear unremarkable. IMPRESSION: Limited evaluation of the chest due to exclusion of the left lung base and costophrenic angle. Within these limitations, no acute cardiopulmonary abnormalities. Cardiomegaly. No significant discrepancy with initial interpretation by overnight radiologist. Reviewed by: Colton Masterson MD on 10/13/2020 8:44 AM PDT Approved by: Colton Masterson MD on 10/13/2020 8:44 AM PDT Station ID: [id number]
--- NOTE | 2020-10-13 09:37 | CT Report ---
PROCEDURE: Abdomen/Pelvis W INDICATIONS: BL UQ tenderness, fever CONTRAST: IV CONTRAST: Isovue 300 ml: 100 PO CONTRAST: *NO PO CONTRAST TECHNIQUE: After the administration of IV contrast, 5 mm thick sections acquired from the diaphragms to the symp hysis. 5 mm thick coronal and sagittal reformats were acquired. For radiation dose reduction, the f ollowing was used: automated exposure control, adjustment of mA and/or kV according to patient size. COMPARISON: 08/14/2017 FINDINGS: Image quality: Excellent. ABDOMEN: Lung bases: Lung bases are clear. Heart size is normal. Solid organs: Liver is normal in size and attenuation. The spleen is normal size. Gallbladder is un remarkable. Biliary system is non dilated. Pancreas enhances normally. No adrenal nodules. Left pe lvic kidney. Peritoneum and bowel: Scattered pneumoperitoneum layers anteriorly in the epigastric region of the a bdomen. The stomach is distended and fluid-filled. There is a discontinuity in the anterior right lat eral wall of the first portion of the duodenum consistent with perforated ulcer (10/05 through 35). Mu cosa is diffusely hyperemic and there is moderate perigastric and periduodenal fat stranding in the t issues. There is a small amount of ascites around the liver. The small bowel is decompressed. Slightly increased quantity of stool in colon. Extensive sigmoid div erticulosis. Normal appendix. Bowel loops demonstrate normal wall thickness and caliber. No free flu id or air. Nodes and vessels: No retroperitoneal or mesenteric adenopathy by size criteria. Aorta and inferior vena cava are normal in size. Miscellaneous: No ventral hernias. PELVIS: Genitourinary: Bladder wall thickness is normal. Mild prostatomegaly. Miscellaneous: No inguinal hernias or adenopathy. Bones: No suspicious bony lesions. Degenerative endplate spurring throughout the spine. No vertebral body compression fractures. IMPRESSION: 1. Findings of duodenal ulcer perforation with small amount of free epigastric air. 2. Pelvic left kidney. 3. Extensive sigmoid diverticulosis without acute diverticulitis. 4. Concordant with preliminary report. Reviewed by: Joie Burr MD on 10/13/2020 8:36 AM AKDT Approved by: Joie Burr MD on 10/13/2020 8:36 AM AKDT Station ID: [id number]
--- NOTE | 2020-10-13 09:42 | PROVIDER PROGRESS NOTE ---
Subjective - Subjective Pt reports feeling: Improved (less pain however disk and tape machine tender. feeling better) Objective - Vital Signs/Intake & Output Reviewed Vital Signs: Yes Vital Signs: Vital Signs x48h Temp Pulse Pulse Resp BP Pulse Ox 10/13/20 07:58 37.0 C 100 18 105/63 94 10/13/20 03:19 36.9 C 111 H 18 96 Intake & Output: Intake & Output 10/10/20 10/11/20 10/12/20 10/13/20 23:59 23:59 23:59 23:59 Intake Total 100 391 Output Total 200 Balance 100 191 - Objective General Appearance: positive: No acute distress, Alert Eyes Bilateral: positive: Normal inspection, PERRL, EOMI Neck: positive: No JVD, Trachea midline Respiratory: positive: No respiratory distress Abdomen: positive: Other (mild distension and tenderness) Neurologic/Psychiatric: positive: Oriented x3 - Lab Results Fish Bones: 10/13/20 05:43 10/12/20 21:29 Other Labs: Lab Results x24hrs 10/13/20 10/12/20 10/12/20 Range/Units 05:43 23:30 23:11 WBC 14.5 H (4.8-10.8) x10^3/uL RBC 4.19 L (4.70-6.10) 10^6/uL Hgb 13.3 L (14.0-18.0) g/dL Hct 38.0 L (42.0-52.0) % MCV 90.7 (80.0-94.0) fL MCH 31.7 H (27.0-31.0) pg MCHC 35.0 (32.0-36.0) g/dL RDW 15.4 H (12.0-15.0) % Plt Count 201 (130-450) 10^3/uL MPV 10.3 (7.4-11.4) fL Neut # (Auto) (1.5-6.6) 10^3/uL Lymph # (Auto) (1.5-3.5) 10^3/uL [place] # (Auto) (0.0-1.0) 10^3/uL Eos # (Auto) (0.0-0.7) 10^3/uL Baso # (Auto) (0.0-0.1) 10^3/uL Absolute Nucleated RBC x10^3/uL Nucleated RBC % /100WBC VBG pH (7.31-7.41) VBG pCO2 (41-51) mmHg VBG pO2 (25-47) mmHg VBG HCO3 (23-28) mmol/L VBG Total CO2 (24-29) mmol/L VBG O2 Saturation (60-80) % VBG Base Excess (-2 - +2) mmol/L Sodium (135-145) mmol/L Potassium (3.5-5.0) mmol/L Chloride (101-111) mmol/L Carbon Dioxide (21-32) mmol/L Anion Gap (6-13) BUN (6-20) mg/dL Creatinine (0.6-1.2) mg/dL Estimated GFR (MDRD) (>89) Glucose (70-100) mg/dL Lactic Acid 3.1 H* (0.5-2.2) mmol/L Calcium (8.5-10.3) mg/dL Total Bilirubin (0.2-1.0) mg/dL AST (10-42) IU/L ALT (10-60) IU/L Alkaline Phosphatase (42-121) IU/L Troponin I High Sens (2.3-19.7) ng/L Total Protein (6.7-8.2) g/dL Albumin (3.2-5.5) g/dL Globulin (2.1-4.2) g/dL Albumin/Globulin Ratio (1.0-2.2) Lipase (22-51) U/L Nasal Adenovirus (PCR) NOT DETECTED Nasal B. parapertussis DNA (PCR) NOT DETECTED Nasal Coronavir 229E PCR NOT DETECTED Nasal Coronavir HKU1 PCR NOT DETECTED Nasal Coronavir NL63 PCR NOT DETECTED Nasal Coronavir OC43 PCR NOT DETECTED Nasal Enterovir/Rhinovir PCR NOT DETECTED Nasal Influenza B PCR NOT DETECTED Nasal Influenza A PCR NOT DETECTED Nasal Parainfluen 1 PCR NOT DETECTED Nasal Parainfluen 2 PCR NOT DETECTED Nasal Parainfluen 3 PCR NOT DETECTED Nasal Parainfluen 4 PCR NOT DETECTED Nasal RSV (PCR) NOT DETECTED Nasal B.pertussis DNA PCR NOT DETECTED Nasal C.pneumoniae (PCR) NOT DETECTED Juan Human Metapneumo PCR NOT DETECTED Nasal M.pneumoniae (PCR) NOT DETECTED Nasal SARS-CoV-2 (PCR) NOT DETECTED 10/12/20 10/12/20 10/12/20 Range/Units 22:24 22:24 21:29 WBC (4.8-10.8) x10^3/uL RBC (4.70-6.10) 10^6/uL Hgb (14.0-18.0) g/dL Hct (42.0-52.0) % MCV (80.0-94.0) fL MCH (27.0-31.0) pg MCHC (32.0-36.0) g/dL RDW (12.0-15.0) % Plt Count (130-450) 10^3/uL MPV (7.4-11.4) fL Neut # (Auto) (1.5-6.6) 10^3/uL Lymph # (Auto) (1.5-3.5) 10^3/uL Harvey # (Auto) (0.0-1.0) 10^3/uL Eos # (Auto) (0.0-0.7) 10^3/uL Baso # (Auto) (0.0-0.1) 10^3/uL Absolute Nucleated RBC x10^3/uL Nucleated RBC % /100WBC VBG pH 7.477 H (7.31-7.41) VBG pCO2 34.0 L (41-51) mmHg VBG pO2 35.1 (25-47) mmHg VBG HCO3 24.6 (23-28) mmol/L VBG Total CO2 25.6 (24-29) mmol/L VBG O2 Saturation 72.7 (60-80) % VBG Base Excess 1.6 (-2 - +2) mmol/L Sodium (135-145) mmol/L Potassium (3.5-5.0) mmol/L Chloride (101-111) mmol/L Carbon Dioxide (21-32) mmol/L Anion Gap (6-13) BUN (6-20) mg/dL Creatinine (0.6-1.2) mg/dL Estimated GFR (MDRD) (>89) Glucose (70-100) mg/dL Lactic Acid 3.3 H* (0.5-2.2) mmol/L Calcium (8.5-10.3) mg/dL Total Bilirubin (0.2-1.0) mg/dL AST (10-42) IU/L ALT (10-60) IU/L Alkaline Phosphatase (42-121) IU/L Troponin I High Sens 10.5 (2.3-19.7) ng/L Total Protein (6.7-8.2) g/dL Albumin (3.2-5.5) g/dL Globulin (2.1-4.2) g/dL Albumin/Globulin Ratio (1.0-2.2) Lipase (22-51) U/L Nasal Adenovirus (PCR) Nasal B. parapertussis DNA (PCR) Nasal Coronavir 229E PCR Nasal Coronavir HKU1 PCR Nasal Coronavir NL63 PCR Nasal Coronavir OC43 PCR Nasal Enterovir/Rhinovir PCR Nasal Influenza B PCR Nasal Influenza A PCR Nasal Parainfluen 1 PCR Nasal Parainfluen 2 PCR Nasal Parainfluen 3 PCR Nasal Parainfluen 4 PCR Nasal RSV (PCR) Nasal B.pertussis DNA PCR Nasal C.pneumoniae (PCR) Juan Human Metapneumo PCR Nasal M.pneumoniae (PCR) Nasal SARS-CoV-2 (PCR) 10/12/20 10/12/20 Range/Units 21:29 21:29 WBC 14.3 H (4.8-10.8) x10^3/uL RBC 4.58 L (4.70-6.10) 10^6/uL Hgb 14.5 (14.0-18.0) g/dL Hct 40.8 L (42.0-52.0) % MCV 89.1 (80.0-94.0) fL MCH 31.7 H (27.0-31.0) pg MCHC 35.5 (32.0-36.0) g/dL RDW 15.0 (12.0-15.0) % Plt Count 239 (130-450) 10^3/uL MPV 10.2 (7.4-11.4) fL Neut # (Auto) 9.6 H (1.5-6.6) 10^3/uL Lymph # (Auto) 3.3 (1.5-3.5) 10^3/uL Harvey # (Auto) 1.3 H (0.0-1.0) 10^3/uL Eos # (Auto) 0.0 (0.0-0.7) 10^3/uL Baso # (Auto) 0.0 (0.0-0.1) 10^3/uL Absolute Nucleated RBC 0.00 x10^3/uL Nucleated RBC % 0.0 /100WBC VBG pH (7.31-7.41) VBG pCO2 (41-51) mmHg VBG pO2 (25-47) mmHg VBG HCO3 (23-28) mmol/L VBG Total CO2 (24-29) mmol/L VBG O2 Saturation (60-80) % VBG Base Excess (-2 - +2) mmol/L Sodium 137 (135-145) mmol/L Potassium 3.6 (3.5-5.0) mmol/L Chloride 97 L (101-111) mmol/L Carbon Dioxide 25 (21-32) mmol/L Anion Gap 15.0 H (6-13) BUN 28 H (6-20) mg/dL Creatinine 1.3 H (0.6-1.2) mg/dL Estimated GFR (MDRD) 52 L (>89) Glucose 219 H (70-100) mg/dL Lactic Acid (0.5-2.2) mmol/L Calcium 9.1 (8.5-10.3) mg/dL Total Bilirubin 1.8 H (0.2-1.0) mg/dL AST 19 (10-42) IU/L ALT 15 (10-60) IU/L Alkaline Phosphatase 76 (42-121) IU/L Troponin I High Sens (2.3-19.7) ng/L Total Protein 7.4 (6.7-8.2) g/dL Albumin 4.1 (3.2-5.5) g/dL Globulin 3.3 (2.1-4.2) g/dL Albumin/Globulin Ratio 1.2 (1.0-2.2) Lipase 23 (22-51) U/L Nasal Adenovirus (PCR) Nasal B. parapertussis DNA (PCR) Nasal Coronavir 229E PCR Nasal Coronavir HKU1 PCR Nasal Coronavir NL63 PCR Nasal Coronavir OC43 PCR Nasal Enterovir/Rhinovir PCR Nasal Influenza B PCR Nasal Influenza A PCR Nasal Parainfluen 1 PCR Nasal Parainfluen 2 PCR Nasal Parainfluen 3 PCR Nasal Parainfluen 4 PCR Nasal RSV (PCR) Nasal B.pertussis DNA PCR Nasal C.pneumoniae (PCR) Juan Human Metapneumo PCR Nasal M.pneumoniae (PCR) Nasal SARS-CoV-2 (PCR) Assessment/Plan - Problem List (1) Perforated duodenal ulcer Impression: He likely has sealed the perforated ulcer and is feeling better. continue npo e xcept meds, sips, ice chips. iv abx close observation advance diet when abdominal exam improved
[2020-10-13] MEDS: AMPICILLIN/SULBACTAM 3 GM in SODIUM CHLORIDE 0.9% MINIBAG 100 ML IV SCH ×3 (10:01→19:39)
[2020-10-13] MEDS: METOPROLOL TARTRATE 50 MG TABLET PO SCH ×2 (10:02→20:51)
--- NOTE | 2020-10-13 10:25 | PHARMACY PROGRESS NOTE ---
- Best Possible Medication History Admit Date and Time: 10/13/20 0052 Processed by: Pharmacy Medication History completed: Yes Patient Interview: Completed Secondary Source(s): Physician records, Pharmacy records, Insurance records (PATIENT CONFUSED ABOUT HIS HOME MEDICATIONS. MEDICATION RECONCILIATION COMPLETED USING INSURANCE AND PHYSICIAN RECORDS ) As the person ultimately responsible for medication therapy, providers are able to order a medication from an existing home medication list in [facility] via the "Reconcile Routine" prior to Confirmation of that medication by wan support specialist. Such practice is discouraged except when the physician, in their clinical judgment, deems that a medical need exists for a medication without regard to previous use.
[2020-10-13] MEDS: HYDROmorphone 0.5 MG/0.5 ML SYRINGE IVP PRN ×2 (12:21→18:58)
[2020-10-13] MEDS: ACETAMINOPHEN 325 MG TABLET PO PRN ×2 (12:21→23:42)
[2020-10-13] MEDS: HYDROcod/ACETAM 5/325 MG TABLET PO PRN (14:10)
[2020-10-14] MEDS: AMPICILLIN/SULBACTAM 3 GM in SODIUM CHLORIDE 0.9% MINIBAG 100 ML IV SCH ×4 (02:40→19:46)
[2020-10-14 05:16] LABS: HGB - HEMOGLOBIN 11.9 g/dL (14.0-18.0); MEAN CORPUSCULAR HEMOGLOBIN 31.3 pg (27.0-31.0); MEAN CORPUSCULAR VOLUME 92.1 fL (80.0-94.0); MEAN PLATELET VOLUME 10.2 fL (7.4-11.4); RED BLOOD COUNT 3.8 10^6/uL (4.70-6.10); RED CELL DISTRIBUTION WIDTH 15.6 % (12.0-15.0); WHITE BLOOD COUNT 16.8 x10^3/uL (4.8-10.8)
[2020-10-14 05:26] LABS: POTASSIUM 3.7 mmol/L (3.5-5.0)
[2020-10-14] MEDS: D5.45NS W/20 MEQ KCL 1,000 ML IV SCH ×2 (06:20→19:46)
[2020-10-14] MEDS: HYDROcod/ACETAM 5/325 MG TABLET PO PRN ×2 (07:07→13:25)
[2020-10-14] MEDS: METOPROLOL TARTRATE 50 MG TABLET PO SCH ×2 (08:29→20:00)
[2020-10-14] MEDS: SODIUM CHLORIDE FLUSH 0.9% 10 ML SYRINGE IVP SCH ×2 (08:31→16:25)
[2020-10-14] MEDS: PANTOPRAZOLE 40 MG TABLET PO SCH ×2 (08:31→20:00)
[2020-10-14] MEDS ORDERED: SODIUM CHLORIDE 0.9% 500 ML IV ONE (13:30)
--- NOTE | 2020-10-14 13:36 | PROVIDER PROGRESS NOTE ---
Subjective - Prog Note Date Prog Note Date: 10/14/20 - Subjective Pt reports feeling: Improved Objective - Vital Signs/Intake & Output Vital Signs: Vital Signs x48h Temp Pulse Resp BP BP Pulse Ox 10/14/20 08:29 107/68 10/14/20 08:00 37.4 C 119 H 20 107/58 L 94 Intake & Output: Intake & Output 10/11/20 10/12/20 10/13/20 10/14/20 23:59 23:59 23:59 23:59 Intake Total 100 2441.000 1316.666 Output Total 200 120 Balance 100 2241.000 1196.666 - Objective General Appearance: positive: No acute distress, Alert Eyes Bilateral: positive: Normal inspection, PERRL, EOMI ENT: positive: No signs of dehydration Neck: positive: No JVD Respiratory: positive: No respiratory distress Abdomen: positive: No distention, Other (mild right upper quadrant tenderness. abdomen softer, less distended) - Lab Results Fish Bones: 10/14/20 05:10 10/14/20 05:10 Other Labs: Lab Results x24hrs 10/14/20 10/14/20 Range/Units 05:10 05:10 WBC 16.8 H (4.8-10.8) x10^3/uL RBC 3.80 L (4.70-6.10) 10^6/uL Hgb 11.9 L (14.0-18.0) g/dL Hct 35.0 L (42.0-52.0) % MCV 92.1 (80.0-94.0) fL MCH 31.3 H (27.0-31.0) pg MCHC 34.0 (32.0-36.0) g/dL RDW 15.6 H (12.0-15.0) % Plt Count 174 (130-450) 10^3/uL MPV 10.2 (7.4-11.4) fL Sodium 135 (135-145) mmol/L Potassium 3.7 (3.5-5.0) mmol/L Chloride 100 L (101-111) mmol/L Carbon Dioxide 25 (21-32) mmol/L Anion Gap 10.0 (6-13) BUN 28 H (6-20) mg/dL Creatinine 1.0 (0.6-1.2) mg/dL Estimated GFR (MDRD) 71 L (>89) Glucose 203 H (70-100) mg/dL Calcium 8.0 L (8.5-10.3) mg/dL Assessment/Plan - Problem List (1) Perforated duodenal ulcer Impression: wbc up slightly; however, he is feeling better and abdominal exam improved. diet sips urine is dark. 500 ml bolus recheck labs tomorrow close observation discussed with son
[2020-10-15] MEDS: SODIUM CHLORIDE FLUSH 0.9% 10 ML SYRINGE IVP SCH ×3 (01:51→16:40)
[2020-10-15] MEDS: AMPICILLIN/SULBACTAM 3 GM in SODIUM CHLORIDE 0.9% MINIBAG 100 ML IV SCH ×4 (02:15→19:47)
[2020-10-15] MEDS: SODIUM CHLORIDE FLUSH 0.9% 10 ML SYRINGE IVP PRN (02:16)
[2020-10-15 05:35] LABS: HCT - HEMATOCRIT 31.8 % (42.0-52.0); HGB - HEMOGLOBIN 10.9 g/dL (14.0-18.0); MEAN CORPUSCULAR HEMOGLOBIN 31.5 pg (27.0-31.0); MEAN CORPUSCULAR HGB CONC 34.3 g/dL (32.0-36.0); MEAN CORPUSCULAR VOLUME 91.9 fL (80.0-94.0); MEAN PLATELET VOLUME 10.5 fL (7.4-11.4); RED BLOOD COUNT 3.46 10^6/uL (4.70-6.10); RED CELL DISTRIBUTION WIDTH 15.9 % (12.0-15.0); WHITE BLOOD COUNT 13.3 x10^3/uL (4.8-10.8)
[2020-10-15 05:45] LABS: CALCIUM 7.5 mg/dL (8.5-10.3); POTASSIUM 3.8 mmol/L (3.5-5.0)
[2020-10-15] MEDS: D5.45NS W/20 MEQ KCL 1,000 ML IV SCH ×2 (09:12→21:17)
[2020-10-15] MEDS: PANTOPRAZOLE 40 MG TABLET PO SCH ×2 (09:13→21:19)
[2020-10-15] MEDS: ACETAMINOPHEN 325 MG TABLET PO PRN (09:13)
[2020-10-15] MEDS: METOPROLOL TARTRATE 50 MG TABLET PO SCH ×2 (09:13→21:17)
--- NOTE | 2020-10-15 13:31 | PROVIDER PROGRESS NOTE ---
Subjective - Prog Note Date Prog Note Date: 10/15/20 - Subjective Pt reports feeling: Improved Subjective: Abdominal pain and tenderness nearly resolved. denies nausea. passing gas Objective - Vital Signs/Intake & Output Reviewed Vital Signs: Yes Vital Signs: Vital Signs x48h Temp Pulse Resp BP Pulse Ox 10/15/20 10:00 37.3 C 10/15/20 08:56 38 C H 108 H 20 107/53 L 92 Intake & Output: Intake & Output 10/12/20 10/13/20 10/14/20 10/15/20 23:59 23:59 23:59 23:59 Intake Total 100 2441.000 3071.666 1498.333 Output Total 200 220 195 Balance 100 2241.000 2851.666 1303.333 - Objective General Appearance: positive: No acute distress, Alert Eyes Bilateral: positive: Normal inspection ENT: positive: No signs of dehydration Neck: positive: No JVD, Trachea midline Respiratory: positive: No respiratory distress Abdomen: positive: Non-tender, No distention Neurologic/Psychiatric: positive: Oriented x3 - Lab Results Fish Bones: 10/15/20 05:26 10/15/20 05:26 Other Labs: Lab Results x24hrs 10/15/20 10/15/20 Range/Units 05:26 05:26 WBC 13.3 H (4.8-10.8) x10^3/uL RBC 3.46 L (4.70-6.10) 10^6/uL Hgb 10.9 L (14.0-18.0) g/dL Hct 31.8 L (42.0-52.0) % MCV 91.9 (80.0-94.0) fL MCH 31.5 H (27.0-31.0) pg MCHC 34.3 (32.0-36.0) g/dL RDW 15.9 H (12.0-15.0) % Plt Count 190 (130-450) 10^3/uL MPV 10.5 (7.4-11.4) fL Sodium 134 L (135-145) mmol/L Potassium 3.8 (3.5-5.0) mmol/L Chloride 105 (101-111) mmol/L Carbon Dioxide 21 (21-32) mmol/L Anion Gap 8.0 (6-13) BUN 20 (6-20) mg/dL Creatinine 1.0 (0.6-1.2) mg/dL Estimated GFR (MDRD) 71 L (>89) Glucose 172 H (70-100) mg/dL Calcium 7.5 L (8.5-10.3) mg/dL Assessment/Plan - Problem List (1) Perforated duodenal ulcer Impression: improving daily clinically. wbc down slight temp which is likely related to atelectasis. he is improving with activity. diet fulls. nutrition drinks tid
[2020-10-16] MEDS: SODIUM CHLORIDE FLUSH 0.9% 10 ML SYRINGE IVP SCH ×3 (02:07→17:31)
[2020-10-16] MEDS: AMPICILLIN/SULBACTAM 3 GM in SODIUM CHLORIDE 0.9% MINIBAG 100 ML IV SCH ×4 (02:15→20:42)
[2020-10-16] MEDS: SODIUM CHLORIDE FLUSH 0.9% 10 ML SYRINGE IVP PRN (02:53)
[2020-10-16] MEDS: ACETAMINOPHEN 325 MG TABLET PO PRN (05:08)
[2020-10-16] MEDS: METOPROLOL TARTRATE 50 MG TABLET PO SCH ×2 (08:13→21:09)
[2020-10-16] MEDS: PANTOPRAZOLE 40 MG TABLET PO SCH ×2 (08:14→21:09)
[2020-10-16] MEDS: D5.45NS W/20 MEQ KCL 1,000 ML IV SCH ×2 (09:22→22:12)
[2020-10-16] MEDS ORDERED: polyethylene glycoL 3350 17 GM PACKET PO PRN (12:56)
--- NOTE | 2020-10-16 13:00 | PROVIDER PROGRESS NOTE ---
Subjective - Prog Note Date Prog Note Date: 10/16/20 - Subjective Pt reports feeling: Improved (tolerating diet. passing gas. pain improved) Objective - Vital Signs/Intake & Output Reviewed Vital Signs: Yes Vital Signs: Vital Signs x48h Temp Pulse Resp BP Pulse Ox 10/16/20 07:22 36.9 C 122 H 24 120/63 92 10/16/20 05:13 37.7 C 90 20 131/72 H 92 Intake & Output: Intake & Output 10/13/20 10/14/20 10/15/20 10/16/20 23:59 23:59 23:59 23:59 Intake Total 2441.000 3071.666 3428.333 1765.000 Output Total 200 220 545 125 Balance 2241.000 2851.666 2883.333 1640.000 - Objective General Appearance: positive: No acute distress, Alert Eyes Bilateral: positive: Normal inspection, PERRL ENT: positive: No signs of dehydration Neck: positive: No JVD Respiratory: positive: No respiratory distress Abdomen: positive: Non-tender, No distention Neurologic/Psychiatric: positive: Oriented x3 - Lab Results Fish Bones: 10/15/20 05:26 10/15/20 05:26 Assessment/Plan - Problem List (1) Perforated duodenal ulcer Impression: clinically improving daily; however, still having a fever on occasion. plan recheck labs tomorrow. if continuing to have fevers and wbc elevated plan ct to evaluate for abscess. if afebrile, and normal wbc plan d/c home on oral antibiotics tomorrow.
[2020-10-16] MEDS: HYDROcod/ACETAM 5/325 MG TABLET PO PRN ×2 (15:42→21:14)
[2020-10-16] MEDS: CIPROFLOXACIN 400 MG/200 ML 400 MG/200 ML BAG IV SCH (21:09)
[2020-10-16] MEDS: CLINDAMYCIN 600 MG/50 ML 50 ML IV SCH (22:12)
[2020-10-17] MEDS: SODIUM CHLORIDE FLUSH 0.9% 10 ML SYRINGE IVP SCH ×3 (06:25→18:55)
[2020-10-17] MEDS: CLINDAMYCIN 600 MG/50 ML 50 ML IV SCH ×3 (06:26→21:34)
[2020-10-17 06:30] LABS: HCT - HEMATOCRIT 32.7 % (42.0-52.0); HGB - HEMOGLOBIN 10.8 g/dL (14.0-18.0); MEAN CORPUSCULAR HEMOGLOBIN 30.9 pg (27.0-31.0); MEAN CORPUSCULAR VOLUME 93.7 fL (80.0-94.0); MEAN PLATELET VOLUME 10.7 fL (7.4-11.4); RED BLOOD COUNT 3.49 10^6/uL (4.70-6.10); RED CELL DISTRIBUTION WIDTH 15.6 % (12.0-15.0); WHITE BLOOD COUNT 10.4 x10^3/uL (4.8-10.8)
[2020-10-17] MEDS: METOPROLOL TARTRATE 50 MG TABLET PO SCH ×2 (09:15→20:20)
[2020-10-17] MEDS: CIPROFLOXACIN 400 MG/200 ML 400 MG/200 ML BAG IV SCH ×2 (09:15→20:20)
[2020-10-17] MEDS: PANTOPRAZOLE 40 MG TABLET PO SCH ×2 (09:15→20:20)
[2020-10-17] MEDS: D5.45NS W/20 MEQ KCL 1,000 ML IV SCH (10:40)
--- NOTE | 2020-10-17 12:17 | Discharge Plan ---
Discharge Plan Problem Reviewed?: Yes Disposition: Home, Self Care Condition: Good Prescriptions: Ciprofloxacin [Cipro] 250 mg PO Q12H #14 tablet Clindamycin [Cleocin] 300 mg PO Q6H 5 Days #40 tab Pantoprazole Sodium [Protonix] 40 mg PO BID #120 tab Diet: Regular Activity Restrictions: No Restrictions Shower Restrictions: No Driving Restrictions: No Additional Instructions or Follow Up instructions: Please follow up with surgery. call to make an appointment [phone] you my need to get a referral to surgery from your primary care doctor No Smoking: If you smoke, Please STOP! Call for help. Follow-up with: Fermín Tellez MD [Primary Care Provider] -
--- NOTE | 2020-10-17 12:29 | DISCHARGE SUMMARY ---
"Discharge Summary Admit Date: 10/12/20 Discharge Date: 10/17/20 Discharging Provider: santiago pereira md Code Status: Attempt Resuscitation - DIAGNOSES Admission Diagnoses: perforated ulcer Discharge Diagnoses with Status of Each Condition: home in good condition after medical management - HPI History of Present Illness: 3 days abdominal pain prior to admit. No evidence continued perforation at time of admit. Improved with medical management alone. - CONSULTS | PROCEDURES Procedures: Close observation, protonix medication, holding aspirin, and antibiotics - HOSPITAL COURSE Hospital Course: as above. home tolerating diet, afebrile, normal wbc, return of gi function and benign abdominal exam - ALLERGIES Allergies/Adverse Reactions: Allergies Allergy/AdvReac Type Severity Reaction Status Date / Time No Known Drug Allergies Allergy Verified 10/12/20 21:15 - MEDICATIONS Home Medications: Ambulatory Orders Medication Instructions Recorded Confirmed Aspirin [Adult Aspirin] 81 mg PO DAILY 09/08/18 10/13/20 Atorvastatin Calcium 40 mg PO QPM 09/08/18 10/13/20 Levothyroxine Sodium [Synthroid] 150 mcg PO DAILY 10/13/20 10/13/20 Metoprolol Succinate [Toprol Xl] 100 mg PO DAILY 10/13/20 10/13/20 Ciprofloxacin [Cipro] 250 mg PO Q12H #14 tablet 10/17/20 Clindamycin [Cleocin] 300 mg PO Q6H 5 Days #40 tab 10/17/20 Pantoprazole Sodium [Protonix] 40 mg PO BID #120 tab 10/17/20 Home Medications Other | Comments: please do not take aspirin. please take prontonix and antibiotics as prescribed - PHYSICAL EXAM AT DISCHARGE General Appearance: positive: No acute distress, Alert Eyes Bilateral: positive: Normal inspection, PERRL ENT: positive: No signs of dehydration Neck: positive: No JVD Respiratory: positive: No respiratory distress Abdomen: positive: Non-tender, No distention Neurologic/Psychiatric: positive: Oriented x3 - LABS Result Diagrams: 10/17/20 06:02 10/15/20 05:26 - FOLLOW UP Follow Up: Santiago Pereira MD surgery call to make an appointment [phone]"
[2020-10-18] MEDS: SODIUM CHLORIDE FLUSH 0.9% 10 ML SYRINGE IVP SCH ×3 (01:37→15:50)
[2020-10-18] MEDS: CLINDAMYCIN 600 MG/50 ML 50 ML IV SCH ×3 (05:27→21:37)
[2020-10-18] MEDS: SODIUM CHLORIDE FLUSH 0.9% 10 ML SYRINGE IVP PRN (05:28)
[2020-10-18] MEDS: PANTOPRAZOLE 40 MG TABLET PO SCH ×2 (08:44→20:32)
[2020-10-18] MEDS: CIPROFLOXACIN 400 MG/200 ML 400 MG/200 ML BAG IV SCH ×2 (08:45→20:32)
[2020-10-18] MEDS: METOPROLOL TARTRATE 50 MG TABLET PO SCH ×2 (08:45→20:32)
--- NOTE | 2020-10-18 12:54 | PROVIDER PROGRESS NOTE ---
Subjective - Subjective Pt reports feeling: Improved (tolerating diet. having bms. little to no abdominal pain) Objective - Vital Signs/Intake & Output Vital Signs: Vital Signs x48h Temp Pulse Resp BP Pulse Ox 10/18/20 09:30 140 H 91 L 10/18/20 07:40 37.3 C 125 H 18 122/84 H 96 10/18/20 05:00 89 L Intake & Output: Intake & Output 10/15/20 10/16/20 10/17/20 10/18/20 23:59 23:59 23:59 23:59 Intake Total 3428.333 3775.000 3590 970 Output Total 463 909 3279 1725 Balance 2883.333 3250.000 2140 -755 - Objective General Appearance: positive: No acute distress, Alert Neck: positive: No JVD Respiratory: positive: No respiratory distress Cardiovascular: positive: Irregularly irregular, Tachycardia Abdomen: positive: Non-tender, No distention Neurologic/Psychiatric: positive: Oriented x3 - Lab Results Fish Bones: 10/17/20 06:02 10/15/20 05:26 Assessment/Plan - Problem List (1) Perforated duodenal ulcer Impression: doing well from abdominal stand point. room air oxygen sats had been mild low for days. yesterday low 80's and discharge was canceled. he has chronic a fib. pulse has been up and down during his hospital course. more tachycardic today. home when room air sats greater than 90 and tachycardia improved. plan if not improving will ask for medicine consult. he feels well and is asymptomatic
[2020-10-19] MEDS: SODIUM CHLORIDE FLUSH 0.9% 10 ML SYRINGE IVP SCH ×2 (00:17→09:14)
[2020-10-19] MEDS: CLINDAMYCIN 600 MG/50 ML 50 ML IV SCH (05:55)
[2020-10-19] MEDS: DOCUSATE SODIUM 250 MG CAPSULE PO SCH ×2 (06:05→09:14)
[2020-10-19] MEDS: CIPROFLOXACIN 400 MG/200 ML 400 MG/200 ML BAG IV SCH (09:13)
[2020-10-19] MEDS: PANTOPRAZOLE 40 MG TABLET PO SCH (09:14)
[2020-10-19] MEDS: METOPROLOL TARTRATE 50 MG TABLET PO SCH (09:14)
--- NOTE | 2020-10-19 09:34 | Discharge Plan ---
Discharge Plan Problem Reviewed?: Yes Disposition: Home, Self Care Condition: Good Prescriptions: Ciprofloxacin [Cipro] 250 mg PO Q12H #14 tablet Ciprofloxacin HCl [Cipro] 500 mg PO BID #10 tablet Clindamycin [Cleocin] 300 mg PO Q6H 5 Days #40 tab Clindamycin [Cleocin] 300 mg PO Q6H 5 Days #20 tab Pantoprazole Sodium [Protonix] 40 mg PO BID 60 Days #120 tab Pantoprazole Sodium [Protonix] 40 mg PO BID #120 tab Diet: Regular Activity Restrictions: No Restrictions Shower Restrictions: No Driving Restrictions: No Assessment: Discharge was scheduled 2 days ago. He developed hypoxia and tachycardia which has now resolved. Plan home in good condition Additional Instructions or Follow Up instructions: Please follow up with surgery. call to make an appointment [phone] you my need to get a referral to surgery from your primary care doctor No Smoking: If you smoke, Please STOP! Call for help. Follow-up with: Fermín Tellez MD [Primary Care Provider] -
--- NOTE | 2020-10-19 09:37 | DISCHARGE SUMMARY ---
"Discharge Summary Admit Date: 10/13/20 Discharge Date: 10/19/20 Discharging Provider: lisette hughes Code Status: Attempt Resuscitation - DIAGNOSES Admission Diagnoses: perforated duodenal ulcer - HPI History of Present Illness: Admitted 10/13/2020 with few days abdominal pain and perforated ulcer. He was treated medically and abdominal exam improved daily. Discharge was planned 2 days earlier; however, he developed hypoxia and tachycardia which has since resolved. Home in good condition. - CONSULTS | PROCEDURES Procedures: medical management perforated ulcer with ppi medication, antibiotics, bowel rest, treatment tachycardia/ a fib with beta brad treatment hypoxia with oxygen and deep breathing/ mobilization - ALLERGIES Allergies/Adverse Reactions: Allergies Allergy/AdvReac Type Severity Reaction Status Date / Time No Known Drug Allergies Allergy Verified 10/12/20 21:15 - MEDICATIONS Home Medications: Ambulatory Orders Medication Instructions Recorded Confirmed Aspirin [Adult Aspirin] 81 mg PO DAILY 09/08/18 10/13/20 Atorvastatin Calcium 40 mg PO QPM 09/08/18 10/13/20 Levothyroxine Sodium [Synthroid] 150 mcg PO DAILY 10/13/20 10/13/20 Metoprolol Succinate [Toprol Xl] 100 mg PO DAILY 10/13/20 10/13/20 Ciprofloxacin HCl [Cipro] 500 mg PO BID #10 tablet 10/17/20 Ciprofloxacin [Cipro] 250 mg PO Q12H #14 tablet 10/17/20 Clindamycin [Cleocin] 300 mg PO Q6H 5 Days #20 tab 10/17/20 Clindamycin [Cleocin] 300 mg PO Q6H 5 Days #40 tab 10/17/20 Pantoprazole Sodium [Protonix] 40 mg PO BID #120 tab 10/17/20 Pantoprazole Sodium [Protonix] 40 mg PO BID 60 Days #120 tab 10/17/20 - PHYSICAL EXAM AT DISCHARGE General Appearance: positive: No acute distress, Alert Eyes Bilateral: positive: Normal inspection, PERRL ENT: positive: No signs of dehydration Neck: positive: No JVD Respiratory: positive: No respiratory distress Abdomen: positive: Non-tender, No distention Neurologic/Psychiatric: positive: Oriented x3 - LABS Result Diagrams: 10/17/20 06:02 10/15/20 05:26"
[2020-10-19 10:49] VITALS: BP 109/65
== END 2020-10-19 10:40 | disposition home or self-care (01) | DRG 384 ==
LOC: ED 21:05 → MS2 10-13 00:52
PROVIDERS: ADMIT Surgery; ATTEND Surgery
DX: A41.9 Sepsis, unspecified organism (principal); K26.1 Acute duodenal ulcer with perforation; K26.9 Duodenal ulcer, unspecified as acute or chronic, without hemorrhage or perforation; J98.11 Atelectasis; I48.91 Unspecified atrial fibrillation; R09.02 Hypoxemia; Z20.822 Contact with and (suspected) exposure to COVID-19; R50.9 Fever, unspecified; E78.00 Pure hypercholesterolemia, unspecified; K21.9 Gastro-esophageal reflux disease without esophagitis; H91.90 Unspecified hearing loss, unspecified ear; Z79.82 Long term (current) use of aspirin; Z79.899 Other long term (current) drug therapy; Z86.73 Personal history of transient ischemic attack (TIA), and cerebral infarction without residual deficits
CPT/HCPCS: 36415; 71045; 74177; 80048; 80053; 82803; 83605; 83690; 84484; 85025; 85027; 87040; 87631; 93005; 96365; 96375; 99284; 99285; A9270; J1170; Q9967; 0202U

== ENCOUNTER 2021-01-12 14:27 | Emergency (ER) | payer MEDICARE ==
[2021-01-12 14:38] VITALS: BP 133/88
--- NOTE | 2021-01-12 15:03 | ED Physician Documentation ---
PD HPI HEENT - Stated complaint Stated Complaint: HEARING ISSUES - Chief complaint Chief Complaint: Heent - History obtained from History obtained from: Patient (He has slowly been losing his hearing for about a year. No specific worsening today to necessitate a visit, just thought he should get it checked out. It is bilateral. There is no pain.) Review of Systems Constitutional: denies: Fever, Chills Throat: reports: Reviewed and negative Cardiac: reports: Reviewed and negative PD PAST MEDICAL HISTORY - Past Medical History Cardiovascular: High cholesterol, Atrial fibrillation, Other Respiratory: None Neuro: TIA Endocrine/Autoimmune: None, Other GI: GERD : None HEENT: Chronic hearing loss, Other Psych: None Musculoskeletal: None Derm: None - Past Surgical History Past Surgical History: Yes General: Bowel surgery HEENT: Cataracts - Present Medications Home Medications: Ambulatory Orders Medication Instructions Recorded Confirmed Aspirin [Adult Aspirin] 81 mg PO DAILY 09/08/18 10/13/20 Atorvastatin Calcium 40 mg PO QPM 09/08/18 10/13/20 Levothyroxine Sodium [Synthroid] 150 mcg PO DAILY 10/13/20 10/13/20 Metoprolol Succinate [Toprol Xl] 100 mg PO DAILY 10/13/20 10/13/20 Ciprofloxacin HCl [Cipro] 500 mg PO BID #10 tablet 10/17/20 Ciprofloxacin [Cipro] 250 mg PO Q12H #14 tablet 10/17/20 Clindamycin [Cleocin] 300 mg PO Q6H 5 Days #20 tab 10/17/20 Clindamycin [Cleocin] 300 mg PO Q6H 5 Days #40 tab 10/17/20 Pantoprazole Sodium [Protonix] 40 mg PO BID #120 tab 10/17/20 Pantoprazole Sodium [Protonix] 40 mg PO BID 60 Days #120 tab 10/17/20 - Allergies Allergies/Adverse Reactions: Allergies Allergy/AdvReac Type Severity Reaction Status Date / Time No Known Drug Allergies Allergy Verified 01/12/21 14:38 - Social History Does the pt smoke?: No Smoking Status: Former smoker Does the pt drink ETOH?: Yes Does the pt have substance abuse?: No - Immunizations Immunizations are current?: Yes - POLST Patient has POLST: No POLST Status: Full Code PD ED PE NORMAL - Vitals Vital signs reviewed: Yes - General General: Alert and oriented X 3, No acute distress - HEENT HEENT: Other (Bilateral cerumen impaction) - Neuro Neuro: Alert and oriented X 3, Normal speech Results - Vitals Vitals: Vital Signs - 24 hr 01/12/21 14:35 Temperature 36.8 C Heart Rate 85 Respiratory 16 Rate Blood Pressure 133/88 H O2 Saturation 98 Oxygen O2 Source Room air Procedures - General procedure General procedure: Combination of syringe irrigation and curette his both ear tubes were relieved of cerumen with improvement in his hearing Departure - Departure Disposition: 01 Home, Self Care Clinical Impression: Impacted cerumen of both ears Condition: Good Record reviewed to determine appropriate education?: Yes Instructions: ED Earwax Removal
== END 2021-01-12 15:26 | disposition home or self-care (01) ==
LOC: ED 14:27
DX: H61.23 Impacted cerumen, bilateral (principal); Z87.891 Personal history of nicotine dependence; Z79.82 Long term (current) use of aspirin
CPT/HCPCS: 99281; 99283

== ENCOUNTER 2022-09-25 18:40 | Emergency (ER) | payer MEDICARE ==
[2022-09-25 18:50] VITALS: BP 136/90
--- NOTE | 2022-09-25 20:06 | ED Physician Documentation ---
History of Present Illness - Stated complaint Stated Complaint: MOLE ON FACE - Chief complaint Chief Complaint: Wound - History obtained from History obtained from: Patient - History of Present Illness Timing: Today Pain level max: 0 Pain level now: 0 - Additonal information Additional information: Patient states that he has a history of skin cancer and states that he noticed a mole on his face today. He would like it evaluated. No other complaints. Review of Systems GI: denies: Vomiting Neurologic: denies: Headache PD PAST MEDICAL HISTORY - Past Medical History Cardiovascular: High cholesterol, Atrial fibrillation, Other Respiratory: None Neuro: TIA Endocrine/Autoimmune: None, Other GI: GERD : None HEENT: Chronic hearing loss, Other Psych: None Musculoskeletal: None Derm: None - Past Surgical History Past Surgical History: Yes General: Bowel surgery HEENT: Cataracts - Present Medications Home Medications: Ambulatory Orders Medication Instructions Recorded Confirmed Aspirin [Adult Aspirin] 81 mg PO DAILY 09/08/18 10/13/20 Atorvastatin Calcium 40 mg PO QPM 09/08/18 10/13/20 Levothyroxine Sodium [Synthroid] 150 mcg PO DAILY 10/13/20 10/13/20 Metoprolol Succinate [Toprol Xl] 100 mg PO DAILY 10/13/20 10/13/20 Ciprofloxacin HCl [Cipro] 500 mg PO BID #10 tablet 10/17/20 Ciprofloxacin [Cipro] 250 mg PO Q12H #14 tablet 10/17/20 Clindamycin [Cleocin] 300 mg PO Q6H 5 Days #20 tab 10/17/20 Clindamycin [Cleocin] 300 mg PO Q6H 5 Days #40 tab 10/17/20 Pantoprazole Sodium [Protonix] 40 mg PO BID #120 tab 10/17/20 Pantoprazole Sodium [Protonix] 40 mg PO BID 60 Days #120 tab 10/17/20 - Allergies Allergies/Adverse Reactions: Allergies Allergy/AdvReac Type Severity Reaction Status Date / Time No Known Drug Allergies Allergy Verified 09/25/22 18:50 - Social History Does the pt smoke?: No Smoking Status: Former smoker Does the pt drink ETOH?: Yes Does the pt have substance abuse?: No - Immunizations Immunizations are current?: Yes - POLST Patient has POLST: No POLST Status: Full Code PD ED PE NORMAL - Vitals Vital signs reviewed: Yes - General General: Alert and oriented X 3, No acute distress - HEENT HEENT: Other (small lesion to the left side of face, white in color, concerning for potential skin cancer.) - Derm Derm: Warm and dry - Neuro Neuro: Alert and oriented X 3 - Psych Psych: Normal mood, Normal affect Results - Vitals Vitals: Vital Signs - 24 hr 09/25/22 18:45 Temperature 36 C L Heart Rate 103 H Respiratory 16 Rate Blood Pressure 136/90 H O2 Saturation 100 Oxygen O2 Source Room air PD Medical Decision Making - ED course Complexity details: considered differential, d/w patient ED course: Patient does have a small raised white area on the left cheek concerning for potential skin cancer. Recommend he follow-up with his PCP and dermatology for biopsy and further diagnosis. Recommend to do this tomorrow. Patient counseled regarding signs and symptoms for which I believe and urgent re-evaluation would be necessary. Patient with good understanding of and agreement to plan and is comfortable going home at this time This document was made in part using voice recognition software. While efforts are made to proofread this document, sound alike and grammatical errors may occur. Departure - Departure Disposition: 01 Home, Self Care Clinical Impression: Skin lesion Condition: Good Instructions: Cancer Skin Types Follow-Up: EVANGELINA GÓMEZ PA [Physician No Access] - Fermín Tellez MD [Provider Admit Priv/Credential] - [facility] [Provider Group] Comments: Please follow-up with your doctor or dermatology for a biopsy of the skin lesion. Numbers are provided on this paperwork. Marifer Doyle [facility] [address] [place] [id number] Discharge Date/Time: 09/25/22 20:16
== END 2022-09-25 20:16 | disposition home or self-care (01) ==
LOC: ED 18:40
DX: L98.9 Disorder of the skin and subcutaneous tissue, unspecified (principal); Z87.891 Personal history of nicotine dependence
CPT/HCPCS: 99281; 99282

== ENCOUNTER 2023-06-18 19:09 | Outpatient (CLI) | payer MEDICARE | END 2023-06-18 19:10 | disposition EMS.NT | LOC: EMS 19:09 | DX: Z04.1 Encounter for examination and observation following transport accident (principal) ==

== ENCOUNTER 2024-01-31 12:29 | Emergency (ER) | payer MEDICARE | END 2024-01-31 13:13 | disposition left against medical advice (07) | LOC: ED 12:29 | DX: Z53.21 Procedure and treatment not carried out due to patient leaving prior to being seen by health care provider (principal) ==

== ENCOUNTER 2024-05-25 14:38 | Inpatient (IN) ==
[2024-05-25] MEDS: SODIUM CHLORIDE 0.9% 1,000 ML IV STA ×3 (15:14→16:44)
[2024-05-25 15:29] LABS: BASOPHILS % (AUTO) 0.1 %; HCT - HEMATOCRIT 37.2 % (42.0-52.0); HGB - HEMOGLOBIN 12.8 g/dL (14.0-18.0); LYMPHOCYTES # (AUTO) 0.3 10^3/uL (1.5-3.5); LYMPHOCYTES % (AUTO) 3.2 %; MEAN CORPUSCULAR HEMOGLOBIN 31.4 pg (27.0-31.0); MEAN CORPUSCULAR HGB CONC 34.4 g/dL (32.0-36.0); MEAN CORPUSCULAR VOLUME 91.4 fL (80.0-94.0); MEAN PLATELET VOLUME 11.4 fL (7.4-11.4); MONOCYTES # (AUTO) 0.8 10^3/uL (0.0-1.0); MONOCYTES % (AUTO) 7.5 %; NEUTROPHILS # (AUTO) 9.1 10^3/uL (1.5-6.6); NEUTROPHILS % (AUTO) 88.5 %; PLT - PLATELET COUNT 361 10^3/uL (130-450); RED BLOOD COUNT 4.07 10^6/uL (4.70-6.10); RED CELL DISTRIBUTION WIDTH 15.6 % (12.0-15.0); WHITE BLOOD COUNT 10.3 x10^3/uL (4.8-10.8)
--- NOTE | 2024-05-25 15:31 | XRAY Report ---
PROCEDURE: XR Chest 1V INDICATIONS: sob / hypoxia TECHNIQUE: One view of the chest was acquired. COMPARISON: Chest x-ray October 12, 2020 FINDINGS: New [id number] bilateral diffuse peribronchial thickening more than expected for expiratory res ult and subsegmental atelectasis. Bronchitis, viral infection, bronchopneumonia, asthma or other pro cess should be considered. Follow-up suggested. Mild calcifications of the aortic arch mildly progressed. Moderate degenerative changes of the thoracic spine progressed. No pneumothorax, no pleural effusion, no lobar consolidation. Cardiopericardial silhouette and pulmonary vasculature within normal limits. IMPRESSION: New [id number] peribronchial thickening as discussed above. Follow-up suggested. If symptoms persist or worsen, CT chest could be performed. Reviewed by: John Bosch MD on 05/25/2024 3:29 PM PST Approved by: Jhon Bosch MD on 05/25/2024 3:29 PM PST Station ID: [email or web address]
[2024-05-25 15:44] LABS: ALBUMIN 4.1 g/dL (3.2-5.5); ALBUMIN/GLOBULIN RATIO 1.4 (1.0-2.2); BILIRUBIN,TOTAL 2.4 mg/dL (0.2-1.0); CALCIUM 9.4 mg/dL (8.5-10.3); CREATININE 2.3 mg/dL (0.6-1.3); POTASSIUM 4.3 mmol/L (3.5-4.5)
[2024-05-25 15:54] LABS: BILIRUBIN,URINE MODERATE (NEGATIVE); GLUCOSE, URINE (UA) 100 mg/dL (NEGATIVE); KETONES,URINE (UA) TRACE mg/dL (NEGATIVE); LEUKOCYTE ESTERASE, URINE NEGATIVE (NEGATIVE); NITRITE,URINE POSITIVE (NEGATIVE); OCCULT BLOOD,URINE TRACE-INTA (NEGATIVE); PH,URINE 5.5 PH (5.0-7.5); PROTEIN,URINE 30 mg/dL (NEGATIVE); UROBILINOGEN,URINE 2 E.U./dL (NORMAL)
[2024-05-25 15:57] LABS: CLARITY,URINE HAZY (CLEAR)
--- NOTE | 2024-05-25 16:19 | CT Report ---
PROCEDURE: CT Head WO INDICATIONS: fall, transient alteration of consciousness TECHNIQUE: Noncontrast 4.5 mm thick angled axial sections acquired from the foramen magnum to the vertex. For r adiation dose reduction, the following was used: automated exposure control, adjustment of mA and/or kV according to patient size. COMPARISON: None. FINDINGS: Image quality: Diagnostic. Some images are limited by beam hardening artifacts most notably at the b ase of skull. Ventricles and cortical sulci are moderately dilated commonly represents a pattern of atrophy. Moderate areas of low-attenuation in the periventricular and deep white matter, commonly related to c hronic small vessel ischemic changes. Moderate vascular calcifications bilateral cavernous, supraclinoid carotids. Mild mucoperiosteal thickening in bilateral sphenoid, ethmoid sinuses measuring up to 4 mm thickness. Mild hyperostosis frontalis or diffuse calvarium thickening. No CT evidence of intracranial hemorrhage, mass lesion, mass effect. The orbits, scalp, mastoid air cells, middle ear cavities within normal limits. IMPRESSION: Moderate atrophy and chronic white matter small vessel schema changes as discussed above. No CT evidence of intracranial hemorrhage. If symptoms persist or worsen, or there is high clinical suspicion of abnormality, MRI could be perfo rmed. Reviewed by: John Bosch MD on 05/25/2024 4:18 PM PST Approved by: John Bosch MD on 05/25/2024 4:18 PM PST Station ID: [email or web address]
[2024-05-25 16:20] LABS: AMORPHOUS SEDIMENT,UR Few /LPF; BACTERIA,URINE Few /HPF (None Seen); CASTS, URINE 3-5 Hyaline Casts /LPF; RBC,URINE 0-5 /HPF (0-5); SQUAMOUS EPITHELIAL CELL,UR FEW Squamous (<= Few); WBC,URINE 0-3 /HPF (0-3)
--- NOTE | 2024-05-25 16:23 | CT Report ---
PROCEDURE: CT Cervical Spine WO INDICATIONS: fall, transient alteration of consciousness TECHNIQUE: Noncontrast 3 mm thick sections acquired from the skull base to the T4 level. Sagittal and coronal r eformats were then constructed. For radiation dose reduction, the following was used: automated exp osure control, adjustment of mA and/or kV according to patient size. COMPARISON: None. FINDINGS: Image quality: Excellent. Some images may be limited by beam hardening artifacts related to metalli c dental hardware. Multilevel degenerative changes of the cervical spine with disc space narrowing, osteophytes, uncover tebral and facet hypertrophic changes most notably at C5-6, C6-7 with moderate to severe bilateral ne ural foraminal narrowing and to a lesser degree at C3-4, C4-5 with moderate neural foraminal narrowin g. Mild vascular calcifications bilateral carotid bifurcations. No CT evidence of fracture or subluxation. Visualized superior ribs are intact. Prevertebral soft tissues are normal in thickness. No paravertebral hematomas. IMPRESSION: Degenerative changes as discussed above. No CT evidence of fracture or subluxation. If symptoms persist or worsen, or there is high clinical suspicion of cervical abnormality, MRI C-spi ne could be performed. Reviewed by: John Bosch MD on 05/25/2024 4:21 PM PST Approved by: John Bosch MD on 05/25/2024 4:21 PM PST Station ID: [email or web address]
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
[2024-05-25] MEDS: cefTRIAXone 1 GM VIAL IVP STA (16:58)
[2024-05-25] MEDS: diltiaZEM INJ 5 MG/ML VIAL IVP STA (16:59)
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
[2024-05-25] MEDS: DIGOXIN 500 MCG/2 ML AMP IVP SCH (18:17)
[2024-05-25] MEDS ORDERED: ONDANSETRON ODT 4 MG TABLET TL PRN (19:03)
[2024-05-25] MEDS ORDERED: ONDANSETRON 4 MG/2 ML VIAL IVP PRN (19:03)
[2024-05-25] MEDS ORDERED: SODIUM CHLORIDE FLUSH 0.9% 10 ML SYRINGE IVP PRN (19:03)
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
[2024-05-25] MEDS: SODIUM CHLORIDE FLUSH 0.9% 10 ML SYRINGE IVP SCH (20:19)
[2024-05-25] MEDS: diltiaZEM INJ 5 MG/ML VIAL IVP ONE (20:24)
[2024-05-25] MEDS: METOPROLOL SUCCINATE 50 MG TABLET PO SCH (20:43)
[2024-05-25] MEDS: FAMOTIDINE 20 MG/2 ML VIAL IVP SCH (20:44)
[2024-05-25] MEDS: SODIUM CHLORIDE 0.9% 1,000 ML IV SCH (21:00)
[2024-05-26 04:42] LABS: BASOPHILS % (AUTO) 0.2 %; EOSINOPHILS % (AUTO) 0.4 %; HCT - HEMATOCRIT 32.8 % (42.0-52.0); HGB - HEMOGLOBIN 10.7 g/dL (14.0-18.0); LYMPHOCYTES # (AUTO) 0.5 10^3/uL (1.5-3.5); LYMPHOCYTES % (AUTO) 5.8 %; MEAN CORPUSCULAR HEMOGLOBIN 32.4 pg (27.0-31.0); MEAN CORPUSCULAR HGB CONC 32.6 g/dL (32.0-36.0); MEAN CORPUSCULAR VOLUME 99.4 fL (80.0-94.0); MONOCYTES # (AUTO) 0.7 10^3/uL (0.0-1.0); MONOCYTES % (AUTO) 8.7 %; NEUTROPHILS # (AUTO) 7.1 10^3/uL (1.5-6.6); NEUTROPHILS % (AUTO) 84.3 %; PLT - PLATELET COUNT 244 10^3/uL (130-450); RED CELL DISTRIBUTION WIDTH 15.9 % (12.0-15.0); WHITE BLOOD COUNT 8.4 x10^3/uL (4.8-10.8)
[2024-05-26 05:03] LABS: CALCIUM 8.1 mg/dL (8.5-10.3); CREATININE 1.6 mg/dL (0.6-1.3); POTASSIUM 3.9 mmol/L (3.5-4.5)
--- NOTE | 2024-05-26 09:17 | PROVIDER PROGRESS NOTE ---
Subjective Prog Note Date Prog Note Date: 05/26/24 Prog Note Time: 09:25 Subjective Pt reports feeling: Improved Subjective: This morning he has definitely improved. Sitting up in bed, bringing a cup of water/coffee to his mouth. Answering questions. But he is confused. Cannot remember anything of what happened or what brought him here. Does not remember getting sick or falling. Hurts all over. No chest pain. Occasional mild nonproductive cough. Current Medications Current Medications Current Medications: Current Medications Generic Name Dose Route Start Last Admin Trade Name Freq PRN Reason Stop Dose Admin Acetaminophen 650 mg 05/25/24 19:03 Acetaminophen 325 Mg Tablet PO Q4HR PRN Pain 1 to 4, or Fever Ceftriaxone Sodium 1 gm 05/26/24 09:00 05/26/24 09:18 Ceftriaxone 1 Gm Vial IVP 1 gm DAILY GAYLE Administration Enoxaparin Sodium 40 mg 05/26/24 09:00 05/26/24 09:24 Enoxaparin 40 Mg/0.4 Ml Syringe SUBQ 40 mg DAILY GAYLE Administration Finasteride 5 mg 05/26/24 10:00 05/26/24 09:40 Finasteride 5 Mg Tablet PO 5 mg DAILY GAYLE Administration Sodium Chloride 1,000 mls @ 100 mls/hr 05/25/24 19:03 05/26/24 09:07 Normal Saline 0.9% IV 100 mls/hr .Q10H GAYLE Administration Metoprolol Succinate 50 mg 05/25/24 21:00 05/26/24 09:36 Metoprolol Succinate 50 Mg Tablet PO 50 mg BID GAYLE Administration Ondansetron HCl 4 mg 05/25/24 19:03 Ondansetron Odt 4 Mg Tablet TL Q6HR PRN Nausea / Vomiting Ondansetron HCl 4 mg 05/25/24 19:03 Ondansetron 4 Mg/2 Ml Vial IVP Q6HR PRN Nausea / Vomiting Oxycodone HCl 5 mg 05/25/24 19:03 Oxycodone 5 Mg Tablet PO Q4HR PRN Pain 5 to 7 Sodium Chloride 10 ml 05/25/24 19:03 Sodium Chloride Flush 0.9% 10 Ml Syringe IVP PRN PRN NEEDED PER PROVIDER ORDERS Sodium Chloride 10 ml 05/25/24 19:03 05/26/24 09:14 Sodium Chloride Flush 0.9% 10 Ml Syringe IVP 10 ml 0100,0900,1700 GAYLE Administration Tamsulosin HCl 0.4 mg 05/26/24 10:00 05/26/24 09:41 Tamsulosin 0.4 Mg Capsule PO 0.4 mg DAILY GAYLE Administration Objective Vital Signs/Intake & Output Reviewed Vital Signs: Yes Vital Signs: Vital Signs Temp Pulse Resp BP Pulse Ox 05/26/24 10:00 93 H 16 115/48 L 98 05/26/24 09:52 97 H 20 122/53 L 97 05/26/24 09:23 93 H 18 108/46 L 100 05/26/24 09:00 75 18 100/50 L 100 05/26/24 08:00 36.6 C 90 22 106/65 98 05/26/24 07:07 85 18 114/54 L 97 05/26/24 07:00 85 18 114/54 L 97 Intake & Output: Intake & Output 05/24/24 05/25/24 05/26/24 05/27/24 05:59 05:59 05:59 05:59 Intake Total 3850 / 3850 1590 / 1590 Output Total 1100 / 1100 315 / 315 Balance 2750 / 2750 1275 / 1275 Weight (kg) 75 kg Objective General Appearance: positive No acute distress (Really, unshaven, looks stated age of 88. 5 foot 8 inches tall, 75 kg), Alert (Disheveled. Nursing has given him a sponge bath.) and Other (Last night lethargic, barely responsive. This morning alert enough to answer my questions. Voice is still low, hoarse. Lips seem thicker than normal. I will ask his son) Eyes Bilateral: positive PERRL and EOMI ENT: positive Dry mucous membranes (Present. However much more improved than last night.) Neck: positive No JVD; negative Stiff neck Respiratory: positive No respiratory distress and Rhonchi; negative Rales Cardiovascular: positive Regular rate & rhythm and Tachycardia (Off and on. Currently in the 90s. Yesterday his atrial fibrillation was as high as 148. Slowly coming down over the course of the night. By 6 this morning he was 103.) Abdomen: positive Non-tender, No organomegaly and Nml bowel sounds Extremities: positive Full ROM and Other (Back of buttock, back of thighs bruised.) Neurologic/Psychiatric: positive CN's nml (2-12) (Except voice.), Motor nml (No focal deficits. Psychomotor slowing. Generalized weakness. Able to slowly feed himself but is a to max assist to sit up, order transferred to the side of the bed) and Disoriented to time Lab Results 05/26/24 04:35 05/26/24 04:35 Other Labs: Lab Results x24hrs 05/26/24 05/26/24 05/25/24 Range/Units 05:44 04:35 20:50 WBC 8.4 (4.8-10.8) x10^3/uL RBC 3.30 L (4.70-6.10) 10^6/uL Hgb 10.7 L (14.0-18.0) g/dL Hct 32.8 L (42.0-52.0) % MCV 99.4 H (80.0-94.0) fL MCH 32.4 H (27.0-31.0) pg MCHC 32.6 (32.0-36.0) g/dL RDW 15.9 H (12.0-15.0) % Plt Count 244 (130-450) 10^3/uL MPV 11.0 (7.4-11.4) fL Neut # (Auto) 7.1 H (1.5-6.6) 10^3/uL Lymph # (Auto) 0.5 L (1.5-3.5) 10^3/uL [place]ier # (Auto) 0.7 (0.0-1.0) 10^3/uL Eos # (Auto) 0.0 (0.0-0.7) 10^3/uL Baso # (Auto) 0.0 (0.0-0.1) 10^3/uL Absolute Nucleated RBC 0.00 x10^3/uL Nucleated RBC % 0.0 /100WBC Sodium 143 (135-145) mmol/L Potassium 3.9 (3.5-4.5) mmol/L Chloride 113 H (101-111) mmol/L Carbon Dioxide 17 L (21-32) mmol/L Anion Gap 13.0 (6-13) BUN 65 H (6-20) mg/dL Creatinine 1.6 H (0.6-1.3) mg/dL Estimated GFR (MDRD) 41 L (>89) Glucose 87 (74-104) mg/dL Lactic Acid (0.5-2.2) mmol/L Calcium 8.1 L (8.5-10.3) mg/dL Total Bilirubin (0.2-1.0) mg/dL AST (10-42) IU/L ALT (10-60) IU/L Alkaline Phosphatase (42-121) IU/L Total Creatine Kinase (30-223) IU/L Troponin I High Sens 63.9 H* (2.3-19.7) ng/L B-Natriuretic Peptide 309 H (5-100) pg/mL Total Protein (6.4-8.9) g/dL Albumin (3.2-5.5) g/dL Globulin (2.1-4.2) g/dL Albumin/Globulin Ratio (1.0-2.2) Lipase (11-82) U/L Urine Color Urine Clarity (CLEAR) Urine pH (5.0-7.5) PH Ur Specific [place] (1.002-1.030) Urine Protein (NEGATIVE) mg/dL Urine Glucose (UA) (NEGATIVE) mg/dL Urine Ketones (NEGATIVE) mg/dL Urine Occult Blood (NEGATIVE) Urine Nitrite (NEGATIVE) Urine Bilirubin (NEGATIVE) Urine Urobilinogen (NORMAL) E.U./dL Ur Leukocyte Esterase (NEGATIVE) Urine RBC (0-5) /HPF Urine WBC (0-3) /HPF Ur Squamous Epith Cells (<= Few) Amorphous Sediment /LPF Urine Bacteria (None Seen) /HPF Urine Casts /LPF Ur Microscopic Review Urine Culture Comments Nasal Screen MRSA (PCR) NEGATIVE (NEGATIVE) 05/25/24 05/25/24 Range/Units 15:40 15:24 WBC 10.3 (4.8-10.8) x10^3/uL RBC 4.07 L (4.70-6.10) 10^6/uL Hgb 12.8 L (14.0-18.0) g/dL Hct 37.2 L (42.0-52.0) % MCV 91.4 (80.0-94.0) fL MCH 31.4 H (27.0-31.0) pg MCHC 34.4 (32.0-36.0) g/dL RDW 15.6 H (12.0-15.0) % Plt Count 361 (130-450) 10^3/uL MPV 11.4 (7.4-11.4) fL Neut # (Auto) 9.1 H (1.5-6.6) 10^3/uL Lymph # (Auto) 0.3 L (1.5-3.5) 10^3/uL [place]ier # (Auto) 0.8 (0.0-1.0) 10^3/uL Eos # (Auto) 0.0 (0.0-0.7) 10^3/uL Baso # (Auto) 0.0 (0.0-0.1) 10^3/uL Absolute Nucleated RBC 0.00 x10^3/uL Nucleated RBC % 0.0 /100WBC Sodium 146 H (135-145) mmol/L Potassium 4.3 (3.5-4.5) mmol/L Chloride 108 (101-111) mmol/L Carbon Dioxide 15 L (21-32) mmol/L Anion Gap 23.0 H (6-13) BUN 79 H (6-20) mg/dL Creatinine 2.3 H (0.6-1.3) mg/dL Estimated GFR (MDRD) 27 L (>89) Glucose 212 H (74-104) mg/dL Lactic Acid 3.9 H* (0.5-2.2) mmol/L Calcium 9.4 (8.5-10.3) mg/dL Total Bilirubin 2.4 H (0.2-1.0) mg/dL AST 79 H (10-42) IU/L ALT 34 (10-60) IU/L Alkaline Phosphatase 53 (42-121) IU/L Total Creatine Kinase 1632 H* (30-223) IU/L Troponin I High Sens 46.1 H* (2.3-19.7) ng/L B-Natriuretic Peptide (5-100) pg/mL Total Protein 7.0 (6.4-8.9) g/dL Albumin 4.1 (3.2-5.5) g/dL Globulin 2.9 (2.1-4.2) g/dL Albumin/Globulin Ratio 1.4 (1.0-2.2) Lipase 20 (11-82) U/L Urine Color DARK YELLOW Urine Clarity HAZY (CLEAR) Urine pH 5.5 (5.0-7.5) PH Ur Specific [place] >=1.030 H (1.002-1.030) Urine Protein 30 H (NEGATIVE) mg/dL Urine Glucose (UA) 100 H (NEGATIVE) mg/dL Urine Ketones TRACE (NEGATIVE) mg/dL Urine Occult Blood TRACE-INTA (NEGATIVE) Urine Nitrite POSITIVE H (NEGATIVE) Urine Bilirubin MODERATE H (NEGATIVE) Urine Urobilinogen 2 H (NORMAL) E.U./dL Ur Leukocyte Esterase NEGATIVE (NEGATIVE) Urine RBC 0-5 (0-5) /HPF Urine WBC 0-3 (0-3) /HPF Ur Squamous Epith Cells FEW Squamous (<= Few) Amorphous Sediment Few /LPF Urine Bacteria Few (None Seen) /HPF Urine Casts 3-5 Hyaline Casts /LPF Ur Microscopic Review INDICATED Urine Culture Comments INDICATED Nasal Screen MRSA (PCR) (NEGATIVE) Assessment/Plan Problem List (1) Altered mental status: Impression: The patient had been admitted with confusion, and nearly mute and his hypothermia and dehydration. This is attributed to hypothermia, dehydration, UTI, mild rhabdomyolysis. This is on a patient who is already with cognitive deficits. As the evening wore on he was starting to respond to the nursing and to his kids. This morning he is sitting up in bed, still covered with blankets but temperature is normal. The bear hugger is off. He is bringing a cup of water to his mouth to sip. Has no recollection of what happened and why he was found the way he was. Plan: Transfer from ICU to [facility] (2) Hypothermia: Impression: Resolved. Transfer to [facility] Qualifiers: Encounter type: initial encounter Qualified Code(s): T68.XXXA - Hypothermia, initial encounter (3) Acute dehydration: Impression: Improving. Still has dry oral mucosa but not nearly as severe as last night. He is drinking fluids on his own. His lab work is responding to the IV fluids. Sodium is now 143 from 146. BUN is down from 79-65. Creatinine has improved tremendously from 2.3 and is now 1.6. Plan: Continue IV fluids and oral intake for at least another day. There is a nationwide IV fluids shortage and I will be stopping IV fluids after today. From there we will have to strongly encourage oral intake with water (4) Rhabdomyolysis: Impression: It was mild yesterday. Will recheck CPK tomorrow. Qualifiers: Rhabdomyolysis type: non-traumatic Qualified Code(s): M62.82 - Rhabdomyolysis (5) Acute UTI: Impression: On day 2 of Rocephin. Urine culture is in progress. From the description of his son, dribbling, incontinent, constantly smelling of urine, I believe this patient has prostatism. I will start him on Proscar and Flomax. (6) Hypertension: Impression: In the outpatient setting he takes metoprolol succinate. Once a day. Here he has been mildly hypotensive. I have resumed the metoprolol succinate at 50 mg p.o. twice daily to avoid rebound tachycardia. Blood pressure is 106/65. I think he is hypotensive due to intravascular depletion and dehydration. His blood pressure will most likely come up as his fluid status improves or returns to normal. Plan: No change in medication for now (7) Hyperglycemia: Impression: No history of diabetes in the EMR. Glucose is noted to be elevated back in October at 203 and 172. Yesterday, in the ER, he was 212. I held off on starting him on sliding scale. Will be checking an A1c today. Glucose this morning is 87. I will continue to hold off on his sliding scale. And I will review the A1c to then move forward with possible new management (8) A-fib: Impression: In the outpatient setting he has declined anticoagulation. He is only with rate control. Last echocardiogram was in 2018 where he had an ejection fraction that was normal. Right ventricle that was normal. Moderate increase in left atrial volume index of 47, severe right atrial enlargement at 88. RVSP at that time was 45. I will continue rate control. I will also respect the patient's wishes and not give him a DOAC. I will also discussed with the patient goals of care. Yesterday he was unable to really participate. I will try to with him today and ask him where he stands on his atrial fibrillation anticoagulation, and why he has been so sad enough to say that he wishes he would . However, I anticipate that it would be slow going because he is just waking up. Still confused. Today may not be the day Qualifiers: Atrial fibrillation type: longstanding persistent Qualified Code(s): Nan 48.11 - Longstanding persistent atrial fibrillation (9) Dementia: Impression: Long standing problem. Gradually progressive. Still driving. I will make a report to the DMV. From here he will most likely need to go to longterm facility for rehab. PT has been ordered. I will need an evaluation. From the nursing facility the plan will be for him to return to his son and ggzyrpob-yh-xmh's house.
[2024-05-26] MEDS: cefTRIAXone 1 GM VIAL IVP SCH (09:18)
[2024-05-26] MEDS: ENOXAPARIN 40 MG/0.4 ML SYRINGE SUBQ SCH (09:24)
[2024-05-26] MEDS: FINASTERIDE 5 MG TABLET PO SCH (09:40)
[2024-05-26] MEDS: TAMSULOSIN 0.4 MG CAPSULE PO SCH (09:41)
--- NOTE | 2024-05-26 10:41 | PHARMACY PROGRESS NOTE ---
Best Possible Medication History Admit Date and Time: 05/25/24 1656 Home Medications Medication Instructions Recorded Confirmed Type aspirin 81 mg tablet,delayed 81 mg PO DAILY 09/08/18 05/26/24 History release (Adult Aspirin Regimen) atorvastatin 40 mg tablet 40 mg PO QPM 09/08/18 05/26/24 History levothyroxine 175 mcg tablet 175 mcg PO DAILY 05/26/24 05/26/24 History metoprolol succinate 100 mg 100 mg PO DAILY 05/26/24 05/26/24 History tablet,extended release 24 hr Processed by: Pharmacy (Medication Reconciliation completed by Primer Inserting Machine Operator) Medications reviewed in ED?: No Medication History completed: Yes Patient Interview: Pt unable to participate Secondary Source(s): Other family member (medication list per son and his ) and Insurance records [facility] Statement: As the person ultimately responsible for medication therapy, providers are able to order a medication from an existing home medication list in [facility] via the "Reconcile Routine" prior to Confirmation of that medication by support architect. Such practice is discouraged except when the physician, in their clinical judgment, deems that a medical need exists for a medication without regard to previous use.
[2024-05-26] MEDS: LEVOTHYROXINE 100 MCG TABLET PO SCH (12:20)
[2024-05-26] MEDS: LEVOTHYROXINE 75 MCG TABLET PO SCH (12:20)
[2024-05-26] MEDS: MULTIVITAMIN W/MINERALS TABLET PO SCH (16:38)
[2024-05-27 06:04] LABS: CALCIUM 7.7 mg/dL (8.5-10.3); CREATININE 1.1 mg/dL (0.6-1.3); POTASSIUM 3.4 mmol/L (3.5-4.5)
[2024-05-27 06:11] LABS: BASOPHILS % (AUTO) 0.2 %; EOSINOPHILS % (AUTO) 0.8 %; HCT - HEMATOCRIT 28.1 % (42.0-52.0); HGB - HEMOGLOBIN 9.6 g/dL (14.0-18.0); LYMPHOCYTES # (AUTO) 0.6 10^3/uL (1.5-3.5); MEAN CORPUSCULAR HEMOGLOBIN 32.1 pg (27.0-31.0); MEAN CORPUSCULAR HGB CONC 34.2 g/dL (32.0-36.0); MEAN PLATELET VOLUME 10.8 fL (7.4-11.4); MONOCYTES # (AUTO) 0.5 10^3/uL (0.0-1.0); MONOCYTES % (AUTO) 11.2 %; NEUTROPHILS # (AUTO) 3.6 10^3/uL (1.5-6.6); PLT - PLATELET COUNT 209 10^3/uL (130-450); RED BLOOD COUNT 2.99 10^6/uL (4.70-6.10); RED CELL DISTRIBUTION WIDTH 15.6 % (12.0-15.0); WHITE BLOOD COUNT 4.8 x10^3/uL (4.8-10.8)
--- NOTE | 2024-05-27 07:50 | PROVIDER PROGRESS NOTE ---
Subjective Prog Note Date Prog Note Date: 05/20/24 Prog Note Time: 08:59 Subjective Pt reports feeling: No change Subjective: Cannot remember what happened. Hurts all over. But denies specific chest pain, abdominal pain. Review of vital signs he has been mildly hypotensive this morning and last night. No fever. She denies shortness of breath. Current Medications Current Medications Current Medications: Current Medications Generic Name Dose Route Start Last Admin Trade Name Freq PRN Reason Stop Dose Admin Acetaminophen 650 mg 05/25/24 19:03 Acetaminophen 325 Mg Tablet PO Q4HR PRN Pain 1 to 4, or Fever Ceftriaxone Sodium 1 gm 05/26/24 09:00 05/26/24 09:18 Ceftriaxone 1 Gm Vial IVP 1 gm DAILY GAYLE Administration Enoxaparin Sodium 40 mg 05/26/24 09:00 05/26/24 09:24 Enoxaparin 40 Mg/0.4 Ml Syringe SUBQ 40 mg DAILY GAYLE Administration Finasteride 5 mg 05/26/24 10:00 05/26/24 09:40 Finasteride 5 Mg Tablet PO 5 mg DAILY GAYLE Administration Levothyroxine Sodium 75 mcg 05/26/24 11:30 05/27/24 05:46 Levothyroxine 75 Mcg Tablet PO 75 mcg QDAC GAYLE Administration Levothyroxine Sodium 100 mcg 05/26/24 11:30 05/27/24 05:46 Levothyroxine 100 Mcg Tablet PO 100 mcg QDAC GAYLE Administration Multivitamins/Minerals 1 tab 05/26/24 17:00 05/26/24 16:38 Multivitamin W/Minerals Tablet PO 1 tab DAILYWM GAYLE Administration Ondansetron HCl 4 mg 05/25/24 19:03 Ondansetron Odt 4 Mg Tablet TL Q6HR PRN Nausea / Vomiting Ondansetron HCl 4 mg 05/25/24 19:03 Ondansetron 4 Mg/2 Ml Vial IVP Q6HR PRN Nausea / Vomiting Oxycodone HCl 5 mg 05/25/24 19:03 Oxycodone 5 Mg Tablet PO Q4HR PRN Pain 5 to 7 Polyethylene Glycol 17 gm 05/27/24 09:00 Polyethylene Glycol 3350 17 Gm Packet PO DAILY GAYLE Potassium Chloride 40 meq 05/27/24 07:46 Potassium Chloride 20 Meq Tablet PO 05/27/24 07:47 ONCE ONE Sodium Chloride 10 ml 05/25/24 19:03 Sodium Chloride Flush 0.9% 10 Ml Syringe IVP PRN PRN NEEDED PER PROVIDER ORDERS Sodium Chloride 10 ml 05/25/24 19:03 05/27/24 00:22 Sodium Chloride Flush 0.9% 10 Ml Syringe IVP Not Given 0100,0900,1700 GAYLE Tamsulosin HCl 0.4 mg 05/26/24 10:00 05/26/24 09:41 Tamsulosin 0.4 Mg Capsule PO 0.4 mg DAILY GAYLE Administration Objective Vital Signs/Intake & Output Reviewed Vital Signs: Yes Vital Signs: Vital Signs x48h Temp Pulse Resp BP Pulse Ox 05/27/24 05:00 36.6 C 82 20 105/51 L 95 Intake & Output: Intake & Output 05/25/24 05/26/24 05/27/24 05/28/24 05:59 05:59 05:59 05:59 Intake Total 3850 / 3850 3880 / 3880 202 / 202 Output Total 1100 / 1100 965 / 965 650 / 650 Balance 2750 / 2750 2915 / 2915 -448 / -448 Weight (kg) 75 kg Objective General Appearance: positive No acute distress (Asleep when I walked in the room. Woke to my voice and touch of his shoulder.) and Other (Sleepy. Slightly confused and did not quite know where he was initially) ENT: positive No signs of dehydration Neck: positive Thyroid nml and No JVD Respiratory: positive No respiratory distress and Breath sounds nml Cardiovascular: positive Irregularly irregular; negative Tachycardia Abdomen: positive Non-tender, No organomegaly and Nml bowel sounds Extremities: positive Non-tender and Full ROM Neurologic/Psychiatric: positive CN's nml (2-12) (No facial asymmetry, mildly deaf, very low hoarse voice since he has been admitted), Disoriented to place and Disoriented to time; negative Motor nml (Ataxic. Speech slow.) Lab Results 05/27/24 05:31 05/27/24 05:31 Other Labs: Lab Results x24hrs 05/27/24 05/26/24 Range/Units 05:31 04:33 WBC 4.8 (4.8-10.8) x10^3/uL RBC 2.99 L (4.70-6.10) 10^6/uL Hgb 9.6 L (14.0-18.0) g/dL Hct 28.1 L (42.0-52.0) % MCV 94.0 (80.0-94.0) fL MCH 32.1 H (27.0-31.0) pg MCHC 34.2 (32.0-36.0) g/dL RDW 15.6 H (12.0-15.0) % Plt Count 209 (130-450) 10^3/uL MPV 10.8 (7.4-11.4) fL Neut # (Auto) 3.6 (1.5-6.6) 10^3/uL Lymph # (Auto) 0.6 L (1.5-3.5) 10^3/uL [place] # (Auto) 0.5 (0.0-1.0) 10^3/uL Eos # (Auto) 0.0 (0.0-0.7) 10^3/uL Baso # (Auto) 0.0 (0.0-0.1) 10^3/uL Absolute Nucleated RBC 0.00 x10^3/uL Nucleated RBC % 0.0 /100WBC Sodium 143 (135-145) mmol/L Potassium 3.4 L (3.5-4.5) mmol/L Chloride 118 H (101-111) mmol/L Carbon Dioxide 20 L (21-32) mmol/L Anion Gap 5.0 L (6-13) BUN 36 H (6-20) mg/dL Creatinine 1.1 (0.6-1.3) mg/dL Estimated GFR (MDRD) 63 L (>89) Glucose 126 H (74-104) mg/dL Calcium 7.7 L (8.5-10.3) mg/dL B-Natriuretic Peptide 522 H (5-100) pg/mL Vitamin B12 735 (180-914) pg/mL ABX Reporting Has patient been on IV antibiotics over the past 48 hours?: Yes Assessment/Plan Problem List (1) Altered mental status: Impression: The patient had been admitted with confusion, and nearly mute and his hypothermia and dehydration. This is attributed to hypothermia, dehydration, UTI, mild rhabdomyolysis. This is on a patient who is already with cognitive deficits. As the evening wore on he was starting to respond to the nursing and to his kids. The morning after admission, he is sitting up in bed, still covered with blankets but temperature is normal. The bear hugger is off. He is bringing a cup of water to his mouth to sip. Has no recollection of what happened and why he was found the way he was. I transferred him to [facility] from ICU This morning voice is still hoarse, he is weak, but able to follow commands. Still can't remember what happened. Plan: PT/OT adrianne (2) Acute UTI: Impression: On day 3 of Rocephin. From the description of his son, dribbling, incontinent, constantly smelling of urine, I believe this patient has prostatism. I will start him on Proscar and Flomax. Urine culture and blood cultures are negative. Very suprising considering the conditions he was found in. Plan: stop rocephin (3) Hypertension: Impression: In the outpatient setting he takes metoprolol succinate. Once a day. Here he has been mildly hypotensive. I have resumed the metoprolol succinate at 50 mg p.o. twice daily to avoid rebound tachycardia. Blood pressure is 106/65. So I changed it to 100 qd. I think he is hypotensive due to intravascular depletion and dehydration. I thought his blood pressure would come up as his fluid status improves or returns to normal. but he is still 105/51. Plan: reduce metoprolol from 100 qd to 50 qd. (4) Hyperglycemia: Impression: No history of diabetes in the EMR. Glucose is noted to be elevated back in October at 203 and 172. On admit in the ER, he was 212. I held off on starting him on sliding scale. Will be checking an A1c. Glucose this morning is 126. I will continue to hold off on his sliding scale. And I will review the A1c to then move forward with possible new management (5) A-fib: Impression: In the outpatient setting he has declined anticoagulation. He is only with rate control. Last echocardiogram was in 2018 where he had an ejection fraction that was normal. Right ventricle that was normal. Moderate increase in left atrial volume index of 47, severe right atrial enlargement at 88. RVSP at that time was 45. I will continue rate control. I will also respect the patient's wishes and not give him a DOAC. I will also discussed with the patient goals of care. On admit, he was unable to really participate. Yesterday he was too weak and couldn't focus. Voice would fade. I will try to with him today and ask him where he stands on his atrial fibrillation anticoagulation, and why he has been so sad enough to say that he wishes he would . However, I anticipate that it would be slow going because he is just waking up. Still confused. Qualifiers: Atrial fibrillation type: longstanding persistent Qualified Code(s): I 48.11 - Longstanding persistent atrial fibrillation (6) Dementia: Impression: Long standing problem. Gradually progressive. Still driving. I will make a report to the DMV. From here he will most likely need to go to snf facility for rehab. PT has been ordered. I will need an evaluation. From the nursing facility the plan will be for him to return to his son and rzyjivul-jr-xvr's house. (7) Acute dehydration: Impression: Resolved. BUN and creat have normalized. He is taking in food and drink. Oral mucosa no longer dry. He does have hypokalemia Plan: DC IVF and encourage po I will order Kdur 40 meq then assess w repeat K in am. (8) Hypothermia: Impression: Resolved. Transfer to [facility] Qualifiers: Encounter type: initial encounter Qualified Code(s): T68.XXXA - Hypothermia, initial encounter (9) Rhabdomyolysis: Impression: Resolved. It was mild yesterday. Will recheck CPK tomorrow. Qualifiers: Rhabdomyolysis type: non-traumatic Qualified Code(s): M62.82 - Rhabdomyolysis
[2024-05-27] MEDS ORDERED: METOPROLOL SUCCINATE 50 MG TABLET PO SCH (09:00)
[2024-05-27] MEDS: polyethylene glycoL 3350 17 GM PACKET PO SCH (09:02)
[2024-05-27] MEDS: METOPROLOL SUCCINATE 50 MG TABLET PO SCH (09:02)
[2024-05-27] MEDS: POTASSIUM CHLORIDE 20 MEQ TABLET PO ONE (09:11)
[2024-05-27] MEDS: ACETAMINOPHEN 325 MG TABLET PO PRN (10:38)
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
[2024-05-27] MEDS: oxyCODONE 5 MG TABLET PO PRN (13:35)
[2024-05-28 05:58] LABS: BASOPHILS % (AUTO) 0.4 %; EOSINOPHILS # (AUTO) 0.1 10^3/uL (0.0-0.7); HCT - HEMATOCRIT 29.5 % (42.0-52.0); HGB - HEMOGLOBIN 9.8 g/dL (14.0-18.0); LYMPHOCYTES # (AUTO) 0.4 10^3/uL (1.5-3.5); LYMPHOCYTES % (AUTO) 7.8 %; MEAN CORPUSCULAR HEMOGLOBIN 31.7 pg (27.0-31.0); MEAN CORPUSCULAR HGB CONC 33.2 g/dL (32.0-36.0); MEAN CORPUSCULAR VOLUME 95.5 fL (80.0-94.0); MEAN PLATELET VOLUME 11.2 fL (7.4-11.4); MONOCYTES # (AUTO) 0.5 10^3/uL (0.0-1.0); MONOCYTES % (AUTO) 8.4 %; NEUTROPHILS # (AUTO) 4.3 10^3/uL (1.5-6.6); NEUTROPHILS % (AUTO) 80.8 %; PLT - PLATELET COUNT 193 10^3/uL (130-450); RED BLOOD COUNT 3.09 10^6/uL (4.70-6.10); RED CELL DISTRIBUTION WIDTH 15.8 % (12.0-15.0); WHITE BLOOD COUNT 5.4 x10^3/uL (4.8-10.8)
[2024-05-28 06:11] LABS: CALCIUM 8.6 mg/dL (8.5-10.3); POTASSIUM 3.8 mmol/L (3.5-4.5)
[2024-05-28 08:02] LABS: ESTIMATED AVERAGE GLUCOSE 137 mg/dL (70-100); HEMOGLOBIN A1c% 6.4 % (4.27-6.07)
--- NOTE | 2024-05-28 08:47 | PROVIDER PROGRESS NOTE ---
Subjective Subjective Subjective: Patient continues to be pleasantly confused. He is alert and oriented x 1. He states that he feels great. He states that he has no pain. He frequently trails off and loses his train of thought. For the nurse, he was alert and oriented x 4; it appears this waxes and wanes, or he's selective with who he answers to. He was not alert enough to work with PT yesterday; will reattempt today. Current Medications Current Medications Current Medications: Current Medications Generic Name Dose Route Start Last Admin Trade Name Freq PRN Reason Stop Dose Admin Acetaminophen 650 mg 05/25/24 19:03 05/28/24 04:48 Acetaminophen 325 Mg Tablet PO 650 mg Q4HR PRN Administration Pain 1 to 4, or Fever Ceftriaxone Sodium 1 gm 05/26/24 09:00 05/27/24 09:03 Ceftriaxone 1 Gm Vial IVP 1 gm DAILY GAYLE Administration Enoxaparin Sodium 40 mg 05/26/24 09:00 05/27/24 09:03 Enoxaparin 40 Mg/0.4 Ml Syringe SUBQ 40 mg DAILY GAYLE Administration Finasteride 5 mg 05/26/24 10:00 05/27/24 09:02 Finasteride 5 Mg Tablet PO 5 mg DAILY GAYLE Administration Levothyroxine Sodium 75 mcg 05/26/24 11:30 05/28/24 07:40 Levothyroxine 75 Mcg Tablet PO Not Given QDAC GAYLE Levothyroxine Sodium 100 mcg 05/26/24 11:30 05/28/24 07:39 Levothyroxine 100 Mcg Tablet PO Not Given QDAC GAYLE Metoprolol Succinate 50 mg 05/27/24 09:00 05/27/24 09:02 Metoprolol Succinate 50 Mg Tablet PO 50 mg DAILY GAYLE Administration Multivitamins/Minerals 1 tab 05/26/24 17:00 05/27/24 09:02 Multivitamin W/Minerals Tablet PO 1 tab DAILYWM GAYLE Administration Ondansetron HCl 4 mg 05/25/24 19:03 Ondansetron Odt 4 Mg Tablet TL Q6HR PRN Nausea / Vomiting Ondansetron HCl 4 mg 05/25/24 19:03 Ondansetron 4 Mg/2 Ml Vial IVP Q6HR PRN Nausea / Vomiting Oxycodone HCl 5 mg 05/25/24 19:03 05/28/24 02:55 Oxycodone 5 Mg Tablet PO 5 mg Q4HR PRN Administration Pain 5 to 7 Polyethylene Glycol 17 gm 05/27/24 09:00 05/27/24 09:02 Polyethylene Glycol 3350 17 Gm Packet PO 17 gm DAILY GAYLE Administration Sodium Chloride 10 ml 05/25/24 19:03 Sodium Chloride Flush 0.9% 10 Ml Syringe IVP PRN PRN NEEDED PER PROVIDER ORDERS Sodium Chloride 10 ml 05/25/24 19:03 05/28/24 01:27 Sodium Chloride Flush 0.9% 10 Ml Syringe IVP 10 ml 0100,0900,1700 GAYLE Administration Tamsulosin HCl 0.4 mg 05/26/24 10:00 05/27/24 09:02 Tamsulosin 0.4 Mg Capsule PO 0.4 mg DAILY GAYLE Administration Objective Vital Signs/Intake & Output Reviewed Vital Signs: Yes Vital Signs: Vital Signs x48h Temp Pulse Resp BP Pulse Ox 05/28/24 08:23 97.9 F 64 18 104/58 L 100 Intake & Output: Intake & Output 05/26/24 05/27/24 05/28/24 05/29/24 05:59 05:59 05:59 05:59 Intake Total 3850 / 3850 3880 / 3880 1312 / 1312 Output Total 1100 / 1100 965 / 965 1560 / 1560 300 / 300 Balance 2750 / 2750 2915 / 2915 -248 / -248 -300 / -300 Weight (kg) 75 kg Objective General Appearance: positive No acute distress (Asleep when I walked in the room. Woke to my voice and touch of his shoulder.) and Other (Slightly confused and did not quite know where he was initially) ENT: positive No signs of dehydration Neck: positive Thyroid nml and No JVD Respiratory: positive No respiratory distress and Breath sounds nml Cardiovascular: positive Irregularly irregular; negative Tachycardia Abdomen: positive Non-tender, No organomegaly and Nml bowel sounds Extremities: positive Non-tender and Full ROM Neurologic/Psychiatric: positive CN's nml (2-12) (No facial asymmetry, mildly deaf, very low hoarse voice since he has been admitted), Disoriented to place and Disoriented to time; negative Motor nml (Ataxic. Speech slow.) Lab Results 05/28/24 05:30 05/28/24 05:30 Other Labs: Lab Results x24hrs 05/28/24 05/27/24 Range/Units 05:30 08:48 WBC 5.4 (4.8-10.8) x10^3/uL RBC 3.09 L (4.70-6.10) 10^6/uL Hgb 9.8 L (14.0-18.0) g/dL Hct 29.5 L (42.0-52.0) % MCV 95.5 H (80.0-94.0) fL MCH 31.7 H (27.0-31.0) pg MCHC 33.2 (32.0-36.0) g/dL RDW 15.8 H (12.0-15.0) % Plt Count 193 (130-450) 10^3/uL MPV 11.2 (7.4-11.4) fL Neut # (Auto) 4.3 (1.5-6.6) 10^3/uL Lymph # (Auto) 0.4 L (1.5-3.5) 10^3/uL [place] # (Auto) 0.5 (0.0-1.0) 10^3/uL Eos # (Auto) 0.1 (0.0-0.7) 10^3/uL Baso # (Auto) 0.0 (0.0-0.1) 10^3/uL Absolute Nucleated RBC 0.00 x10^3/uL Nucleated RBC % 0.0 /100WBC Sodium 145 (135-145) mmol/L Potassium 3.8 (3.5-4.5) mmol/L Chloride 114 H (101-111) mmol/L Carbon Dioxide 24 (21-32) mmol/L Anion Gap 7.0 (6-13) BUN 25 H (6-20) mg/dL Creatinine 1.0 (0.6-1.3) mg/dL Estimated GFR (MDRD) 70 L (>89) Glucose 228 H (74-104) mg/dL Calcium 8.6 (8.5-10.3) mg/dL Total Creatine Kinase 363 H (30-223) IU/L B-Natriuretic Peptide 501 H (5-100) pg/mL ABX Reporting Has patient been on IV antibiotics over the past 48 hours?: Yes Assessment/Plan Problem List (1) Altered mental status: Impression: Patient presented with confusion, nearly mute. Attributed to hypothermia, dehydration, UTI, as well as mild rhabdomyolysis. Patient improved today; alert and oriented x 1, talking in complete sentences, following commands. Patient did have cognitive deficits prior to admission, this would be worsened with this acute event. Will need further neurocognitive testing done in the outpatient setting. PT did evaluate the patient yesterday but was not interactive enough for complete assessment, will see him again today; recommended SNF vs. memory care. Qualifiers: Altered mental status type: unspecified Qualified Code(s): R41.82 - Altered mental status, unspecified (2) Acute UTI: Impression: Resolved. Patient completed 4 days of IV Rocephin. Will stop today. Patient had incontinence, dribbling. Urine culture, blood cultures negative. Likely due to BPH, was started on Proscar and Flomax. (3) Hypertension: Impression: In the outpatient setting, patient takes metoprolol succinate 100 mg twice a day. Here, this was reduced to 50 mg daily. Blood pressure stable, continue to trend. Qualifiers: Hypertension type: unspecified Qualified Code(s): I10 - Essential (primary) hypertension (4) Hyperglycemia: Impression: Patient with elevated glucoses. A1c checked 09/22 was 5.9%. Repeat A1c ordered, pending. (5) A-fib: Impression: In the outpatient setting, he declined anticoagulation. Echo in 2018 he had preserved ejection fraction, moderate increase in left atrial volume index of 47, severe right atrial enlargement. Continue rate control with metoprolol. Hold off on anticoagulation per patient's request in the outpatient setting. Qualifiers: Atrial fibrillation type: longstanding persistent Qualified Code(s): I 48.11 - Longstanding persistent atrial fibrillation (6) Acute dehydration: Impression: Patient was dehydrated initially. BUN and creatinine have normalized. He is eating and drinking well. His hypokalemia is also resolved. (7) Hypothermia: Impression: Resolved. Qualifiers: Encounter type: initial encounter Qualified Code(s): T68.XXXA - Hypothermia, initial encounter (8) Rhabdomyolysis: Impression: Resolved. Qualifiers: Rhabdomyolysis type: non-traumatic Qualified Code(s): M62.82 - Rhabdomyolysis (9) Dementia: Impression: Longstanding problem in the outpatient setting, which has been gradually progressive. Still driving, report made to the DMV by previous hospitalist. Qualifiers: Dementia behavioral or psychological symptom: unspecified whether behavioral, psychotic, or mood disturbance or anxiety Dementia severity: u nspecified severity Dementia type: unspecified type Qualified Code(s): F03.90 - Unspecified dementia, unspecified severity, without behavioral disturbance, psychotic disturbance, mood disturbance, and anxiety
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
[2024-05-29 06:15] LABS: BASOPHILS % (AUTO) 0.3 %; EOSINOPHILS # (AUTO) 0.2 10^3/uL (0.0-0.7); EOSINOPHILS % (AUTO) 2.5 %; HCT - HEMATOCRIT 28.1 % (42.0-52.0); HGB - HEMOGLOBIN 9.6 g/dL (14.0-18.0); LYMPHOCYTES # (AUTO) 0.7 10^3/uL (1.5-3.5); LYMPHOCYTES % (AUTO) 11.7 %; MEAN CORPUSCULAR HEMOGLOBIN 32.1 pg (27.0-31.0); MEAN CORPUSCULAR HGB CONC 34.2 g/dL (32.0-36.0); MEAN PLATELET VOLUME 11.1 fL (7.4-11.4); MONOCYTES # (AUTO) 0.6 10^3/uL (0.0-1.0); MONOCYTES % (AUTO) 10.5 %; NEUTROPHILS # (AUTO) 4.4 10^3/uL (1.5-6.6); NEUTROPHILS % (AUTO) 74.7 %; PLT - PLATELET COUNT 180 10^3/uL (130-450); RED BLOOD COUNT 2.99 10^6/uL (4.70-6.10); WHITE BLOOD COUNT 5.9 x10^3/uL (4.8-10.8)
[2024-05-29 06:42] LABS: CALCIUM 8.6 mg/dL (8.5-10.3); CREATININE 0.9 mg/dL (0.6-1.3); POTASSIUM 3.7 mmol/L (3.5-4.5)
--- NOTE | 2024-05-29 09:06 | PROVIDER PROGRESS NOTE ---
Subjective Subjective Subjective: Patient continues to be pleasantly confused. He is alert and oriented x 1. He states that he has no pain. He frequently trails off and loses his train of thought. For the nurse, he was alert and oriented x 4; it appears this waxes and wanes, or he's selective with who he answers to. Current Medications Current Medications Current Medications: Current Medications Generic Name Dose Route Start Last Admin Trade Name Freq PRN Reason Stop Dose Admin Acetaminophen 650 mg 05/25/24 19:03 05/28/24 04:48 Acetaminophen 325 Mg Tablet PO 650 mg Q4HR PRN Administration Pain 1 to 4, or Fever Enoxaparin Sodium 40 mg 05/26/24 09:00 05/29/24 08:52 Enoxaparin 40 Mg/0.4 Ml Syringe SUBQ 40 mg DAILY GAYLE Administration Finasteride 5 mg 05/26/24 10:00 05/29/24 08:52 Finasteride 5 Mg Tablet PO 5 mg DAILY GAYLE Administration Levothyroxine Sodium 75 mcg 05/26/24 11:30 05/29/24 05:13 Levothyroxine 75 Mcg Tablet PO 75 mcg QDAC GAYLE Administration Levothyroxine Sodium 100 mcg 05/26/24 11:30 05/29/24 05:13 Levothyroxine 100 Mcg Tablet PO 100 mcg QDAC GAYLE Administration Metoprolol Succinate 50 mg 05/27/24 09:00 05/29/24 08:52 Metoprolol Succinate 50 Mg Tablet PO 50 mg DAILY GAYLE Administration Multivitamins/Minerals 1 tab 05/26/24 17:00 05/29/24 08:52 Multivitamin W/Minerals Tablet PO 1 tab DAILYWM GAYLE Administration Ondansetron HCl 4 mg 05/25/24 19:03 Ondansetron Odt 4 Mg Tablet TL Q6HR PRN Nausea / Vomiting Ondansetron HCl 4 mg 05/25/24 19:03 Ondansetron 4 Mg/2 Ml Vial IVP Q6HR PRN Nausea / Vomiting Oxycodone HCl 5 mg 05/25/24 19:03 05/28/24 02:55 Oxycodone 5 Mg Tablet PO 5 mg Q4HR PRN Administration Pain 5 to 7 Polyethylene Glycol 17 gm 05/27/24 09:00 05/29/24 08:52 Polyethylene Glycol 3350 17 Gm Packet PO 17 gm DAILY GAYLE Administration Sodium Chloride 10 ml 05/25/24 19:03 Sodium Chloride Flush 0.9% 10 Ml Syringe IVP PRN PRN NEEDED PER PROVIDER ORDERS Sodium Chloride 10 ml 05/25/24 19:03 05/29/24 08:52 Sodium Chloride Flush 0.9% 10 Ml Syringe IVP 10 ml 0100,0900,1700 GAYLE Administration Tamsulosin HCl 0.4 mg 05/26/24 10:00 05/29/24 08:52 Tamsulosin 0.4 Mg Capsule PO 0.4 mg DAILY GAYLE Administration Objective Vital Signs/Intake & Output Reviewed Vital Signs: Yes Vital Signs: Vital Signs x48h Temp Pulse Resp BP Pulse Ox 05/28/24 08:23 97.9 F 64 18 104/58 L 100 Intake & Output: Intake & Output 05/27/24 05/28/24 05/29/24 05/30/24 05:59 05:59 05:59 05:59 Intake Total 3880 / 3880 1312 / 1312 740 / 740 Output Total 965 / 965 1560 / 1560 1500 / 1500 Balance 2915 / 2915 -248 / -248 -760 / -760 Objective General Appearance: positive No acute distress (Asleep when I walked in the room. Woke to my voice and touch of his shoulder.) and Other (Slightly confused and did not quite know where he was initially) ENT: positive No signs of dehydration Neck: positive Thyroid nml and No JVD Respiratory: positive No respiratory distress and Breath sounds nml Cardiovascular: positive Irregularly irregular; negative Tachycardia Abdomen: positive Non-tender, No organomegaly and Nml bowel sounds Extremities: positive Non-tender and Full ROM Neurologic/Psychiatric: positive CN's nml (2-12) (No facial asymmetry, mildly deaf, very low hoarse voice since he has been admitted), Disoriented to place and Disoriented to time; negative Motor nml (Ataxic. Speech slow.) Lab Results 05/29/24 05:59 05/29/24 05:59 Other Labs: Lab Results x24hrs 05/29/24 05/28/24 Range/Units 05:59 05:30 WBC 5.9 (4.8-10.8) x10^3/uL RBC 2.99 L (4.70-6.10) 10^6/uL Hgb 9.6 L (14.0-18.0) g/dL Hct 28.1 L (42.0-52.0) % MCV 94.0 (80.0-94.0) fL MCH 32.1 H (27.0-31.0) pg MCHC 34.2 (32.0-36.0) g/dL RDW 16.0 H (12.0-15.0) % Plt Count 180 (130-450) 10^3/uL MPV 11.1 (7.4-11.4) fL Neut # (Auto) 4.4 (1.5-6.6) 10^3/uL Lymph # (Auto) 0.7 L (1.5-3.5) 10^3/uL [place] # (Auto) 0.6 (0.0-1.0) 10^3/uL Eos # (Auto) 0.2 (0.0-0.7) 10^3/uL Baso # (Auto) 0.0 (0.0-0.1) 10^3/uL Absolute Nucleated RBC 0.00 x10^3/uL Nucleated RBC % 0.0 /100WBC Sodium 141 (135-145) mmol/L Potassium 3.7 (3.5-4.5) mmol/L Chloride 109 (101-111) mmol/L Carbon Dioxide 26 (21-32) mmol/L Anion Gap 6.0 (6-13) BUN 15 (6-20) mg/dL Creatinine 0.9 (0.6-1.3) mg/dL Estimated GFR (MDRD) 79 L (>89) Glucose 154 H (74-104) mg/dL Calcium 8.6 (8.5-10.3) mg/dL B-Natriuretic Peptide 488 H (5-100) pg/mL TSH 16.00 H (0.34-5.60) uIU/mL Free T4 Direct 0.95 (0.58-1.64) ng/dL ABX Reporting Has patient been on IV antibiotics over the past 48 hours?: Yes Assessment/Plan Problem List (1) Altered mental status: Impression: Patient presented with confusion, nearly mute. Attributed to hypothermia, dehydration, UTI, as well as mild rhabdomyolysis. Patient improved today; alert and oriented x 1, talking in complete sentences, following commands. Patient did have cognitive deficits prior to admission, this would be worsened with this acute event. Will need further neurocognitive testing done in the outpatient setting. PT did evaluate the patient yesterday; dispo is SNF, patient is medically cleared, awaiting insurance authorization. Qualifiers: Altered mental status type: unspecified Qualified Code(s): R41.82 - Altered mental status, unspecified (2) Acute UTI: Impression: Resolved. Patient completed 4 days of IV Rocephin. Will stop today. Patient had incontinence, dribbling. Urine culture, blood cultures negative. Likely due to BPH, was started on Proscar and Flomax. (3) Hyperglycemia: Impression: Patient with elevated glucoses. A1c checked 09/22 was 5.9%. Repeat A1c of 6.4; hold off on sliding scale insulin. (4) Acute dehydration: Impression: Patient was dehydrated initially. BUN and creatinine have normalized. He is eating and drinking well. His hypokalemia is also resolved. (5) Hypothermia: Impression: Resolved. Qualifiers: Encounter type: initial encounter Qualified Code(s): T68.XXXA - Hypothermia, initial encounter (6) Rhabdomyolysis: Impression: Resolved. Qualifiers: Rhabdomyolysis type: non-traumatic Qualified Code(s): M62.82 - Rhabdomyolysis
--- NOTE | 2024-05-29 13:11 | Discharge Summary ---
Discharge Summary Admit Date: 05/25/24 Discharge Date: 05/30/24 Discharging Provider: Dr. Lala Gamez Code Status: Do Not Attempt Resuscitation Discharge Facility [facility]: [facility] DIAGNOSES Admission Diagnoses: Altered mental status Hypothermia Acute dehydration Rhabdomyolysis Acute UTI Hypertension Hyperglycemia Atrial fibrillation Dementia Discharge Diagnoses with Status of Each Condition: Altered mental statusattributed to dehydration, UTI, mild rhabdomyolysis, as well as hypothermia. Improved on discharge; he is alert and oriented x 1-3 depending on the time, he is following commands, talking complete sentences. At baseline, he does have cognitive difficulties. This may be worsened with this acute event. Will need further neurocognitive testing in the outpatient setting. Acute UTIresolved. Completed antibiotic course of Rocephin. [id number] is elevated at 6.4. Continue lifestyle modifications in the outpatient setting. Acute dehydrationresolved. Hypothermiaresolved. Rhabdomyolysisresolved. HPI History of Present Illness: Per Dr. Bills: Patient is an elderly gentleman who has dementia but is still living alone at home. Please see advance care planning conversation which was dictated under separate note. He is a gradually progressive deterioration in status with regards to hygiene, prostatism with urinary incontinence, and memory loss. He still drives between his apartment and his children's home. The grocery store. The library. And the [employer] meetings. His son and DIL (both POA and DPOA) were sick with COVID 2 weeks ago. So they have been avoiding seeing him. They usually see him every other day. Likes to go over there and eat dinner with him. And sometimes he will play chess with his son. They finally felt like they were clear enough that they saw him on May 20. He was his usual self. Son went back to work on May 22. So did his [id number]. Today, the son received a phone call from [employer]. They said that they would like him to do a welfare check. They went to go deliver food for him today. They had delivered food on May 22 and it was still on the porch. Son went to go see him and had to [place] around the apartment. Through the sliding glass door to the back entrance of the apartment, he saw his dad sitting on the floor, no clothing from the waist down except for socks. Still wearing a T-shirt. T shirt was covered in stool. Had a laceration on the right side of his head with dried blood. Right ear with dried blood. He was mumbling, confused. The entire apartment was a mess. Although the patient is not the most cleanest of people, he does put things away and has a relatively tidy apartment. But it had looked like everything had been gone through with clothing, books, furniture tossed everywhere. His father was sitting in the middle of it. He tried to get his father up to at least sit down. He called his who is a nurse. She said to call 911. The son shows me pictures were the apartment is totally ransacked. The bathroom pictures show that the patient seemed to have been incontinent of diarrhe stool in his pants, and attempted to take his pants off. He thinks that is where his dad fell because there was blood on the floor, and blood on the corner of the vanity sink where his father may have fallen and hit his head. He then probably tried to get into the shower. The shower is a mess and there is more stool on the shower floor. In our ER, He is hypothermic. 91 degrees. 33 Celsius. Pulse was 148. Respiratory rate 20. 87% on room air. Blood pressure 101/87. He received diltiazem to slow down his heart rate, and the ER provider started resuscitating him with fluids. He is hyponatremic at 146. Potassium 4.3. Serum carbon dioxide is 15 with a lactic acid of 3.9. Anion gap 23. BUN 79 and his baseline is 20. Creatinine is 2.3 and his baseline is 1.0. Glucose is 212. Total bili is 2.4, AST 79. Surprisingly his total CK is only 1632. Troponin is 46.1. White cell count is 10.3. Hemoglobin is 12.8. His baseline is 10.8 so he may be severely hemoconcentrated. Platelet is 361. Chest x-ray shows peribronchial cuffing but no CHF or pneumonia Head CT has moderate atrophy and chronic white matter small vessel ischemic changes. No intracranial hemorrhage. Spine CT has multilevel degenerative changes of the cervical spine with disc space narrowing, osteophytes, facet hypertrophic changes, moderate to severe bilateral neuroforaminal narrowing but no acute fractures. The emergency room doctor and I discussed this case. We discussed with the possible mechanism of injury could be. Why did he fall? But there is no clear answer without he is history. He does not have a history of falls. He lives alone and his fall was unwitnessed. In the past, family states that he gets very confused when he becomes "septic". But we do not have any admissions for him being septic. With this admission, he does have lactic acidosis and severe dehydration but pneumonia is negative on chest x-ray. He has proteinuria, glucosuria, positive nitrates, moderate bilirubin, few squamous cells, few bacteria, and negative leukocyte Estrace. he may have a UTI. He has had a previous history of stroke but current CT is negative. I will continue to workup this patient for the cause of his fall. I will do an inpatient admission. CONSULTS | PROCEDURES Consultations: PT, OT, social work Procedures: Chest x-ray, head CT, cervical spine CT HOSPITAL COURSE Hospital Course: Patient is a 88-year-old male with a history of dementia who was living alone at home. He has had gradually progressive deterioration in his status. Welfare check was called on him by [employer]. Son found father wearing a T-shirt covered in stool, with laceration on the right side of his head, he was confused and mumbling. When he arrived, he was hypothermic, was also in atrial fibrillation with RVR with pulse of 148. He was treated for urinary tract infection with Rocephin. Was initially started on diltiazem drip, which was weaned off. His heart rate returned to normal. He remains on metoprolol. Anticoagulation was not started as per outpatient request per patient. He was noted to have urinary retention in the outpatient setting. Herrera was removed, he was started on Proscar and Flomax. PT/OT worked with the patient, deemed suitable for SNF. ALLERGIES Allergies Allergy/AdvReac Type Severity Reaction Status Date / Time No Known Drug Allergies Allergy Verified 05/25/24 15:13 MEDICATIONS Ambulatory Orders Medication Instructions Recorded Confirmed aspirin 81 mg tablet,delayed 81 mg PO DAILY 09/08/18 05/26/24 release (Adult Aspirin Regimen) atorvastatin 40 mg tablet 40 mg PO QPM #30 tabs 05/29/24 05/26/24 finasteride 5 mg tablet 5 mg PO DAILY #30 tabs 05/29/24 levothyroxine 175 mcg tablet 175 mcg PO DAILY #30 tabs 05/29/24 05/26/24 metoprolol succinate 50 mg 50 mg PO DAILY #30 tabs 05/29/24 tablet,extended release 24 hr [id number]-[id number] 1 tab PO DAILYWM #30 tabs 05/29/24 fumarate 19 mg-folic acid 400 mcg tablet (Therapeutic-M) tamsulosin 0.4 mg capsule 0.4 mg PO DAILY #30 caps 05/29/24 PHYSICAL EXAM AT DISCHARGE General Appearance: positive No acute distress and Alert; negative Anxious Eyes Bilateral: positive Normal inspection and PERRL ENT: positive ENT inspection nml, Pharynx nml and No signs of dehydration Neck: positive Nml inspection, Thyroid nml and No JVD Respiratory: positive Chest non-tender, No respiratory distress and Breath sounds nml Cardiovascular: positive No murmur and Irregularly irregular; negative Tachycardia or Systolic murmur Peripheral Pulses: positive 2+ Abdomen: positive Non-tender and No distention; negative Guarding, Hepatomegaly, Splenomegaly or Bruit Back: positive Nml inspection; negative CVA tenderness (R) or CVA tenderness (L) Skin: positive Color nml, No rash, Warm and Dry Extremities: positive Non-tender and Full ROM; negative Pedal edema Neurologic/Psychiatric: positive Mood/affect nml and Disoriented to place; negative Disoriented to person or Disoriented to time LABS 05/30/24 04:45 05/30/24 04:45 DIAGNOSTIC IMAGING Diagnostic Imaging Results: Final report reviewed SEPSIS Current Stage of Sepsis: Ruled out QUALITY (Female Hip Fx Only) Was patient sent home on osteoporosis medication?: No FOLLOW UP Follow Up: Follow up with PCP, neurologist for neurocognitive testing. TIME SPENT Time Spent in Discharge (Minutes): 30 Discharge Plan Discharge Patient Disposition: 03 SNF DC/Xfer Condition: Stable Prescriptions: New metoprolol succinate 50 mg Tablet Extended Release 24 Hr 50 mg PO DAILY Qty: 30 0RF tamsulosin 0.4 mg Capsule 0.4 mg PO DAILY Qty: 30 0RF finasteride 5 mg Tablet 5 mg PO DAILY Qty: 30 0RF Therapeutic-M 19 mg iron- 400 mcg Tablet 1 tab PO DAILYWM Qty: 30 0RF Continued aspirin [Adult Aspirin Regimen] 81 MG tablet,delayed release (DR/EC) 81 mg PO DAILY atorvastatin 40 MG tablet 40 mg PO QPM Qty: 30 0RF levothyroxine 175 mcg tablet 175 mcg PO DAILY Qty: 30 0RF Discontinued metoprolol succinate 100 mg tablet extended release 24 hr 100 mg PO DAILY Activity Restrictions: Activity as Tolerated Diet: Cardiac Care Plan Goals: You came in after you were found down at home. When you first came in, your body temperature was very low, and you were very confused. You were treated for a urinary infection. You also were found to have a high heart rate, and were in what we call atrial fibrillation with RVR. This resolved with some medications. Overall, we have continued to improve in terms of your mental status. In order for you to continue to improve physically, we talked about going to a rehab facility for further strengthening. While you were here, you had some difficulty with urination. We started you on some medication for this. You may need a Herrera, or urinary catheter, and further follow-up with the urologist, or bladder doctor. We are glad you are feeling better, thank you for allowing us take care of you. Assessment: 1. Take medications as prescribed. 2. Continue to work on your physical strength, and participate actively in rehab. 3. Follow-up with a primary care physician. 4. Follow-up with a urologist. Print Language: Kazakh Patient Instructions: UTI, Atrial Fibrillation Dc Stand Alone Forms: SNF Discharge, PCP List Follow-up Care: Alphonso Landeros MD [Primary Care Provider] -
[2024-05-30 05:05] LABS: BASOPHILS % (AUTO) 0.3 %; EOSINOPHILS # (AUTO) 0.1 10^3/uL (0.0-0.7); HCT - HEMATOCRIT 28.7 % (42.0-52.0); HGB - HEMOGLOBIN 9.7 g/dL (14.0-18.0); LYMPHOCYTES # (AUTO) 0.7 10^3/uL (1.5-3.5); LYMPHOCYTES % (AUTO) 11.4 %; MEAN CORPUSCULAR HEMOGLOBIN 31.8 pg (27.0-31.0); MEAN CORPUSCULAR HGB CONC 33.8 g/dL (32.0-36.0); MEAN CORPUSCULAR VOLUME 94.1 fL (80.0-94.0); MEAN PLATELET VOLUME 11.2 fL (7.4-11.4); MONOCYTES # (AUTO) 0.7 10^3/uL (0.0-1.0); NEUTROPHILS # (AUTO) 4.4 10^3/uL (1.5-6.6); NEUTROPHILS % (AUTO) 73.8 %; PLT - PLATELET COUNT 184 10^3/uL (130-450); RED BLOOD COUNT 3.05 10^6/uL (4.70-6.10); RED CELL DISTRIBUTION WIDTH 16.2 % (12.0-15.0)
[2024-05-30 05:19] LABS: CALCIUM 8.5 mg/dL (8.5-10.3); CREATININE 0.9 mg/dL (0.6-1.3); POTASSIUM 3.8 mmol/L (3.5-4.5)
[2024-05-30] MEDS: SENNA 8.6 MG TABLET PO SCH (08:27)
[2024-05-30 12:59] VITALS: O2SAT 94
== END 2024-05-30 13:15 | DRG 923 ==
LOC: ED 14:38 → MS2 16:56 → ICU 17:37 → MS2 05-26 15:33
PROVIDERS: ADMIT Specialist; ATTEND Specialist
DX: F03.90 Unspecified dementia, unspecified severity, without behavioral disturbance, psychotic disturbance, mood disturbance, and anxiety; I48.91 Unspecified atrial fibrillation; Z79.899 Other long term (current) drug therapy; M62.82 Rhabdomyolysis; E86.0 Dehydration; T68.XXXA Hypothermia, initial encounter; Z66 Do not resuscitate; N17.9 Acute kidney failure, unspecified; Z79.82 Long term (current) use of aspirin; Z86.73 Personal history of transient ischemic attack (TIA), and cerebral infarction without residual deficits; I10 Essential (primary) hypertension; E87.20 Acidosis, unspecified; Z87.891 Personal history of nicotine dependence; N40.1 Benign prostatic hyperplasia with lower urinary tract symptoms; M47.812 Spondylosis without myelopathy or radiculopathy, cervical region; N39.498 Other specified urinary incontinence; N39.0 Urinary tract infection, site not specified; R73.9 Hyperglycemia, unspecified; Z79.890 Hormone replacement therapy